=== PATIENT | male | born 1990 | race Caucasian/White ===

== ENCOUNTER 2022-01-23 12:21 | Emergency (ER) | payer MEDICAID, SELFPAY ==
--- NOTE | ~2022-01-23 | CT_ITS ---
EXAMINATION: CT cervical spine wo con DATE: 01/23/2022 13:25 INDICATION: Neck pain TECHNIQUE: Computed tomography (CT) of the cervical spine was performed without intravenous contrast. The dose-length product (DLP) was 228.66 mGy-cm. Automated exposure control and iterative reconstruc tion technique were employed. COMPARISON: None FINDINGS: There is no fracture, dislocation, or subluxation. The vertebral body heights, alignment, a nd intervertebral disc spaces are normal. The paravertebral soft tissues are unremarkable. The odonto id is intact. There is mild mucosal thickening of the paranasal sinuses. Multiple tonsilloliths are n oted. IMPRESSION: 1. No acute osseous abnormality. Reviewed, dictated and finalized at location B.
--- NOTE | ~2022-01-23 | XR_ITS ---
EXAMINATION: XR shoulder LT min 2V INDICATION: Left shoulder pain TECHNIQUE: Four views of the left shoulder are submitted. COMPARISON: 03/01/2014 FINDINGS: Normal alignment. No fracture. There is a calcified loose body in the joint space. There is advanced osteoarthritis in the inferior aspect of the glenohumeral joint. The acromioclavicular join t is unremarkable. Soft tissues are unremarkable. IMPRESSION: 1. Osteoarthritis without acute osseous abnormality. Reviewed, dictated and finalized at location B.
[2022-01-23 12:38] VITALS: BP 171/108; PULSE 113; RESP 16; TEMP 36.8; O2SAT 98
--- NOTE | 2022-01-23 12:40 | PC.NURSE ---
erp denies need for c-collar at this time.
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
[2022-01-23 14:04] VITALS: BP 149/105; PULSE 95; RESP 16; TEMP 36.9; O2SAT 98
== END 2022-01-23 14:06 | disposition home or self-care (01) ==
PROVIDERS: Emergency Provider Emergency Medicine
DX: S16.1XXA Strain of muscle, fascia and tendon at neck level, initial encounter (principal); F17.200 Nicotine dependence, unspecified, uncomplicated
CPT/HCPCS: 72125; 73030; 99284

== ENCOUNTER 2022-04-15 15:31 | Emergency (ER) | payer MEDICAID, SELFPAY ==
--- NOTE | ~2022-04-15 | XR_ITS ---
XR ankle RT min 3V DATE: 04/15/2022 16:12 INDICATION: Medial right ankle pain after stepping in a hole today TECHNIQUE: 4 views COMPARISON: None FINDINGS: No fracture or dislocation, periosteal reaction or bone destruction. No significant soft ti ssue swelling is evident radiographically. IMPRESSION: Negative Reviewed, dictated and finalized at location A. IMPRESSION: Negative
[2022-04-15 15:40] VITALS: BP 170/100; PULSE 96; RESP 18; TEMP 36.8; O2SAT 96
[2022-04-15] MEDS: ACETAMINOPHEN 325 MG TABLET 650 MG PO (16:05)
--- NOTE | 2022-04-15 16:25 | ED.LOWEXIN ---
HPI - Extremity Injury (Lower) General Chief Complaint: Extremity Injury, Lower Stated Complaint: right ankle injury Time Seen by Provider: 04/15/22 15:35 Source: patient and RN notes reviewed Mode of arrival: ambulatory Limitations: no limitations History of Present Illness complaint: ankle injury Onset (ago): hour(s) (4) Type of Injury: inversion Place: street/outdoors Severity: mild Severity scale (1-10): 4 Relieving factors: immobilization and rest Exacerbating factors: weight bearing and movement Context: fall and running Associated symptoms: snap/pop sensation Other symptoms: none Related Data Allergies Allergy/AdvReac Type Severity Reaction Status Date / Time aspirin Allergy Unknown Other Verified 04/15/22 15:54 celecoxib Allergy Unknown Other Verified 04/15/22 15:54 citalopram Allergy Unknown Other Verified 04/15/22 15:54 codeine Allergy Unknown Unknown Verified 04/15/22 15:54 NSAIDS (Non-Steroidal Allergy Unknown Other Verified 04/15/22 15:54 Anti-Inflamma tramadol Allergy Unknown Other Verified 04/15/22 15:54 Review of Systems Review of Systems: All systems reviewed & are unremarkable except as noted in HPI and below Constitutional: Constitutional: Reports no additional constitutional complaints Eyes: Eyes: Reports no additional eye complaints ENT: Reports system reviewed and no additional complaints, except as documented Cardiovascular: Cardiovascular: Reports no additional cardiovascular complaints Respiratory: Respiratory: Reports no additional respiratory complaints Gastrointestinal: Gastrointestinal: Reports no additional gastrointestinal complaints Genitourinary: Genitourinary: Reports no additional male genitourinary complaints Musculoskeletal: Musculoskeletal: Reports arthralgias Integumentary/Breasts: Skin/Breast: Reports system reviewed and no additional complaints, except as docu Neurologic: Reports system reviewed and no additional complaints, except as documented Psychiatric: Psychiatric: Reports no additional psychiatric complaints Endocrine: Endocrine: Reports no additional endocrine complaints Hematologic/Lymphatic: Hematologic/Lymphatic: Reports no additional hematologic/lymphatic complaints Allergic/Immunologic: Allergic/Immunologic: Reports no additional allergic/immunologic complaints [facility] Past Medical History Medical History Ankle injury No active medical problems Surgical History Surgical History History of ankle surgery Social History Social History Smoking packs per day: 0.5 Smoking cigarettes per day: 10.0 Smoking status: Current every day smoker Tobacco type: cigarettes Additional smoking assessment comments: down from 2 and half packs per day Alcohol intake: never Alcohol use details: rare Substance use: current Substance use type: marijuana Exam Const: General: no acute distress Nutritional Appearance: well nourished Orientation/consciousness: patient oriented x3 Limitations: no limitations HENMT: Head: normal to inspection Ears: external ears normal, TM's normal bilaterally and EAC's normal General nose exam: Normal external nose present and Normal nares present Face and sinus: normal facial exam and sinuses nontender Mouth: Yes Normal oral and palatal mucosa present and Yes moist mucous membranes Teeth and gingiva: dentition normal Throat: posterior oropharynx normal Eyes: Conjunctivae: conjunctivae normal Pupils: Equal, round and reactive pupils present EOM: EOMs intact bilaterally Neck: Neck: normal visual inspection, no lymphadenopathy and no meningeal signs Chest: Chest palpation & inspection: normal inspection of the chest Resp: Effort & Inspection: normal respiratory effort Auscultation: clear to auscultation bilaterally Cardio: Rate: regular
[2022-04-15 16:48] VITALS: BP 157/90; PULSE 80; RESP 18; TEMP 36.5; O2SAT 98
== END 2022-04-15 16:51 | disposition home or self-care (01) ==
PROVIDERS: Emergency Provider Emergency Medicine
DX: S93.401A Sprain of unspecified ligament of right ankle, initial encounter (principal)
CPT/HCPCS: 29515; 73610; 99283; A9270

== ENCOUNTER 2022-06-23 13:00 | Observation (INO) | payer BC, SELFPAY ==
[2022-06-23] VITALS (19 sets, daily range): BP systolic 140–167; BP diastolic 72–105; PULSE 44–91; RESP 12–22; TEMP 36.4–36.8; O2SAT 98–100; BMI 25.2
--- NOTE | ~2022-06-23 | CT_ITS ---
EXAMINATION: CT abdomen pelvis w con DATE: 06/23/2022 14:31 INDICATION: Left lower quadrant TECHNIQUE: Computed tomography (CT) of the abdomen and pelvis was performed with 100 mL Omnipaque-350 intravenous contrast. Automated exposure control and iterative reconstruction technique were employe d. The dose-length product was 271.27 mGy-cm. COMPARISON: 01/31/2017. FINDINGS: Lower thorax: Dependent atelectasis. Liver: Normal. Biliary/Gallbladder: Gallbladder is normal. No bile duct dilation. Pancreas: No mass or duct dilation. Spleen: Normal. Adrenals:No mass. Kidneys: Moderate left perinephric stranding and hydronephrosis. Delayed left nephrogram. Left midpol e simple cyst. 3 mm right lower pole nonobstructing calcification. GI tract: Mild distal esophageal and gastric wall edema as can be seen with mild esophagitis/gastriti s. No small or large bowel dilation. Normal appendix. Mesentery/Peritoneum: No ascites, mass, or free air. Retroperitoneum: No mass. Minimal atherosclerotic calcification at the right iliac bifurcation. Pelvis: 4 x 6 mm distal left ureteral calcification just proximal to the left UVJ. Mild bladder wall inflammatory change at the left UVJ. Soft Tissues: Soft tissues and body wall unremarkable. Bones: No acute osseous finding. IMPRESSION: 4 x 6 mm distal left ureteral stone causing moderate left obstructive uropathy. Reviewed, dictated and finalized at location K. 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
--- NOTE | ~2022-06-23 | XR_ITS ---
EXAMINATION: XR retrograde pyelo w/stent LT DATE: 06/24/2022 08:20 INDICATION: Left flank pain. TECHNIQUE: Fluoroscopic images from a left internal ureteral stent placement are submitted for review . 22 seconds of fluoroscopy time. FINDINGS: There is a left double-J internal ureteral stent projecting in expected position, with proximal [place] loop at the level of the renal pelvis and distal loop in the pelvis within the bladder lumen. IMPRESSION: 1. Left internal ureteral stent placement. Please refer to real-time procedural findings for detail s. Reviewed, dictated and finalized at location A. TRAINING IMPRESSION: 1. Left internal ureteral stent placement. Please refer to real-time procedur al findings for details.
--- NOTE | 2022-06-23 13:09 | ED.ABDPAIN ---
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 Associated with nausea and frequent vomiting. Radiating to left flank area. Patient denies having similar symptoms in the past or history of abdominal surgery. Patient does not take medicine at home, Related Data Allergies Allergy/AdvReac Type Severity Reaction Status Date / Time aspirin Allergy Unknown Other Verified 06/23/22 13:08 celecoxib Allergy Unknown Other Verified 06/23/22 13:08 citalopram Allergy Unknown Other Verified 06/23/22 13:08 codeine Allergy Unknown Unknown Verified 06/23/22 13:08 NSAIDS (Non-Steroidal Allergy Unknown Other Verified 06/23/22 13:08 Anti-Inflamma tramadol Allergy Unknown Other Verified 06/23/22 13:08 Review of Systems Review of Systems: All systems reviewed & are unremarkable except as noted in HPI and below PMFSH Past Medical History Medical History Ankle injury No active medical problems Surgical History Surgical History History of ankle surgery Family History Family History Father Accident Social History Social History Social History: 3 2 step Smoking packs per day: 0.5 Smoking cigarettes per day: 10.0 Smoking status: Current every day smoker Tobacco type: cigarettes Additional smoking assessment comments: down from 2 and half packs per day Alcohol intake: never Alcohol use details: rare Substance use: current Substance use type: marijuana Exam Narrative: General appearance: Well-developed, well-nourished, restless, in pain Skin: Normal color Head: Normocephalic, nontraumatic Eyes: Clear conjunctiva ENT: Oropharynx normal, ears normal, nose normal Neck: Supple, nontender Chest and respiratory: Airway patent, no respiratory distress, no accessory muscle use Heart: Regular rate/rhythm Abdomen: Soft, mild tenderness left lower quadrant, severe tenderness left flank,, no organomegaly, quiet bowel sounds Vascular: Normal peripheral pulses, normal capillary refill. Musculoskeletal: Normal range of motion, nontender back Neurologic: Alert and oriented ?3, MEDICAL DOCTOR is normal as tested, no gross motor deficit Course Consultations Consultation #1: DR FUNG Date: 06/23/22 Time: 16:27 Vital Signs Vital signs: Vital Signs Temperature 36.4 C L 06/23/22 13:01 Pulse Rate 45 L 06/23/22 13:01 Respiratory Rate 14 06/23/22 13:01 Pulse Oximetry 100 06/23/22 13:01 Oxygen Delivery Room Air 06/23/22 13:01 Temperature 36.4 C L 06/23/22 13:01 Pulse Rate 68 06/23/22 16:00 Respiratory Rate 18 06/23/22 16:00 Blood Pressure 157/105 H 06/23/22 14:46 Pulse Oximetry 98 06/23/22 16:00 Oxygen Delivery Room Air 06/23/22 13:01 MDM - Abdominal Pain Differential Diagnosis Differential diagnosis: Likely abdominal pain, calculus of kidney, constipation and diverticulitis Lab Data 06/23/22 13:40 06/23/22 13:40 Labs: Lab Results 06/23/22 06/23/22 06/23/22 Range/Units 13:40 13:40 15:07 WBC 13.0 H (4.5-10.0) K/mm3 RBC 4.49 L (4.6-6.20) M/mm3 Hgb 14.6 (14.0-18.0) g/dL Hct 41.5 L (42.0-52.0) % MCV 92.4 (80-100) fl MCH 32.5 (26-34) pg MCH
[2022-06-23] MEDS: SODIUM CHLORIDE 0.9% IV 1,000 ML 999 ML IV CONT (13:16)
[2022-06-23] MEDS: ONDANSETRON INJ 4 MG/2 ML VIAL IV PUSH ×2 (13:16→19:55)
[2022-06-23] MEDS: HYDROmorphone HCL INJ (*CRX) 1 MG/ML SYR 0.5 MG IV PUSH ×4 (13:16→19:55)
[2022-06-23 13:45] LABS: Basophils Percent Auto 0.2 % (0.2-1.2); Eosinophils Percent Auto 0.2 % (0-4.4); Hematocrit 41.5 % (42.0-52.0); Hemoglobin 14.6 g/dL (14.0-18.0); Immature Granulocyte Absolute 0.04 K/mm3 (0.00-0.031); Immature Granulocyte Percent A 0.3 % (0-0.5); Lymphocytes Absolute Auto 0.73 K/mm3 (0.9-3.2); Lymphocytes Percent Auto 5.6 % (18.3-44.2); Mean Corpuscular HGB Conc 35.2 g/dl (32-36); Mean Corpuscular Hemoglobin 32.5 pg (26-34); Mean Corpuscular Volume 92.4 fl (80-100); Mean Platelet Volume 10.1 fl (7.4-10.4); Monocytes Absolute Auto 0.7 K/mm3 (0.1-0.6); Monocytes Percent Auto 5.2 % (2.6-8.5); Neutrophils Absolute Auto 11.5 K/mm3 (1.3-6.7); Neutrophils Percent Auto 88.5 % (45.5-73.1); Platelet Count Result 187 k/mm3 (150-375); Red Blood Count 4.49 M/mm3 (4.6-6.20); Red Cell Distribution Width 12.2 % (11.5-14.5)
[2022-06-23 13:57] LABS: Alanine Aminotransferase 29 U/L (6-50); Albumin Level 4.3 g/dL (3.5-5.1); Alkaline Phosphatase 74 U/L (38-126); Anion Gap 8 mmol/L (8-16); Aspartate Amino Transferase 27 U/L (17-59); Bilirubin,Total 0.4 mg/dL (0.2-1.3); Blood Urea Nitrogen 12 mg/dL (9-20); Calcium 8.6 mg/dL (8.4-10.2); Carbon Dioxide 24 mmol/L (22-30); Chloride 108 mmol/L (98-107); Estimated CRCL calculation 98 ml/min; Estimated Glomerular Filt Rate > 60; Glucose 113 mg/dL (65-110); Lipase 41 U/L (23-300); Potassium 4.1 mmol/L (3.4-5.0); Sodium 140 mmol/L (137-145)
[2022-06-23] MEDS: TAMSULOSIN HCL 0.4 MG CAPSULE PO (14:58)
[2022-06-23 15:32] LABS: Appearance Urine Clear (Clear); Bilirubin Urine Negative (Negative); Blood Urine 2+ (Negative); Color Urine Light Yellow (Yellow); Glucose Urine UA Negative (Negative); Ketones Urine 1+ mg/dL (Negative); Leukocyte Esterase Ur Negative LEU/UL (Negative); Nitrate Urine Negative (Negative); Protein Urine Negative (Negative); pH Urine 7.5 (5.0-9.0)
[2022-06-23 15:38] LABS: Bacteria Urine Trace /hpf; Mucus Urine Rare /lpf; RBC Urine 51-75 /hpf (0-2); WBC Urine 0-3 /hpf
[2022-06-23 15:40] LABS: Add Urine Microscopic? YES
[2022-06-23 15:52] LABS: SARS-CoV-2 RNA PCR Negative
--- NOTE | 2022-06-23 16:00 | PM.IMHP ---
H&P: HPI History of Present Illness Date/Time: 06/23/22 16:00 Chief Complaint: Left flank pain Narrative: This is a 32-year-old male patient with a history of kidney stone. The patient sees a urologist at [place]. The patient stated that he started suddenly having left flank pain early this morning. It was associated with nausea and vomiting. The patient stated he feels better curled up in a position if he moves the pain gets worse. The patient did not take any medication at home. The patient has no other medical problems. His white count 13.0. The patient has blood in his urine on his urinalysis. Abdominal pelvis CT was read as a 4 x 6 mm distal left ureteral stone causing moderate left obstructive uropathy. Urology has been consulted. Urology is planning to take the patient to OR at 7:30 a.m. for cystoscopy left retrograde pyelogram and ureteroscopy, laser lithotripsy, stent placement and then the patient could possibly be cleared to go home from their point of view. Urinalysis does not appear to be infected. The patient is being admitted to observation status on the date of service of 06/23/2022. Review of Systems Review of Systems: See HPI All systems reviewed & are unremarkable except as noted in HPI and below Constitutional: Constitutional: Reports as per HPI and Reports no additional constitutional complaints Eyes: Eyes: Reports as per HPI and Reports no additional eye complaints ENT: Reports system reviewed and no additional complaints, except as documented and Reports Normal hearing present Cardiovascular: Cardiovascular: Reports no additional cardiovascular complaints Respiratory: Respiratory: Reports no additional respiratory complaints and Reports no additional respiratory complaints Gastrointestinal: Gastrointestinal: Reports as per HPI and Reports no additional gastrointestinal complaints Musculoskeletal: Musculoskeletal: Reports no additional musculoskeletal complaints Integumentary/Breasts: Skin/Breast: Reports system reviewed and no additional complaints, except as docu and Reports as per HPI Neurologic: Reports system reviewed and no additional complaints, except as documented, Reports as per HPI and Reports Normal hearing present Psychiatric: Psychiatric: Reports no additional psychiatric complaints and Reports as per HPI Endocrine: Endocrine: Reports no additional endocrine complaints Hematologic/Lymphatic: Hematologic/Lymphatic: Reports no additional hematologic/lymphatic complaints Allergic/Immunologic: Allergic/Immunologic: Reports no additional allergic/immunologic complaints [facility] Past Medical History Medical History (Updated 06/23/22 @ 18:47 by Clare Uriarte NP) Ankle injury History of kidney stones No active medical problems Tobacco abuse Surgical History Surgical History History of ankle surgery Family History Family History Father Accident Social History Social History (Updated 06/23/22 @ 18:29 by Clare Uriarte NP) Social History: The patient lives with his and 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 He has 3 biological children and 2 step children. The patient continues to smoke at least 10 cigarettes a day. He denies any alcohol marijuana or illicit drugs. Smoking packs per day: 0.5 Smoking cigarettes per day: 10.0 Years smoked: 20 Smoking pack-years: 10.00 Smoking status: Current every day smoker Tobacco type: cigarettes Additional smoking assessment comments: down from 2 and half packs per day Alcohol intake: current Drinks per week: 0 Alcohol use details: rare Substance use: current Substance use type: marijuana Other substance usage details: not much Last use: 06/22/2022 Lack of Transportation: No Lack of Food: Never True Current Housing: I Have Housing Concerned About Future Housing:
[2022-06-23] MEDS: SODIUM CHLORIDE 0.9% IV 1,000 ML 125 ML IV CONT (17:44)
--- NOTE | 2022-06-23 17:59 | ADMGEN ---
This patient, Gilson Austin, was admitted to [facility] Surg Room 330-01. Patient/family oriented to hospital policies and general routines including ID bracelet, bed and alarms, visiting hours, pain management, procedures, bathroom and other care routines, personal items, smoking policy, room service/diet, and visiting hours. Information on how to activate the Rapid Response Team has been discussed. Patient/Family are encouraged to report perceived risks to care and to ask questions if they do not understand what they are told or what they should do.
[2022-06-24] VITALS (7 sets, daily range): BP systolic 82–131; BP diastolic 44–92; PULSE 75–92; RESP 12–20; TEMP 36.4–37; O2SAT 96–100
[2022-06-24] MEDS: HYDROmorphone HCL INJ (*CRX) 1 MG/ML SYR 0.5 MG IV PUSH (00:44)
[2022-06-24] MEDS: SODIUM CHLORIDE 0.9% IV 1,000 ML 125 ML IV CONT (00:46)
--- NOTE | 2022-06-24 07:27 | WPDANESEPPF ---
Anes - Initial Pre Proc Eval Procedure: Operation Date: 06/24/22 07:30 Proposed Procedures p Cysto, RPG, Stone Ext, Stent Placement - Jose Brown MD Date/Time: 06/24/22 07:27 Surgeon: Robby Goldstein MD Pre Op Diagnosis: Left Ureterolithiasis Patient Data Age: 32 Gender: M Height: 1.8 m Weight: 82 kg Last Vital Signs Temp 36.5 C 06/24/22 05:40 Pulse 80 06/24/22 05:40 Resp 20 06/24/22 05:40 BP 118/80 06/24/22 05:40 Pulse Ox 98 06/24/22 05:40 O2 Del Method Room Air 06/23/22 20:30 Allergies Allergy/AdvReac Type Severity Reaction Status Date / Time aspirin Allergy Unknown Other Verified 06/23/22 13:08 celecoxib Allergy Unknown Other Verified 06/23/22 13:08 citalopram Allergy Unknown Other Verified 06/23/22 13:08 codeine Allergy Unknown Unknown Verified 06/23/22 13:08 NSAIDS (Non-Steroidal Allergy Unknown Other Verified 06/23/22 13:08 Anti-Inflamma tramadol Allergy Unknown Other Verified 06/23/22 13:08 Home Medications Medication Instructions Recorded Confirmed Type acetaminophen 325 mg capsule 650 mg PO Q8H PRN pain #20 caps 04/15/22 Rx (Tylenol) hydrocodone 5 mg-acetaminophen 325 1 tablet PO BID PRN pain #4 tabs 04/15/22 Rx mg tablet Laboratory Tests 06/23/22 06/23/22 06/23/22 13:40 13:40 15:07 WBC 13.0 K/mm3 H K/mm3 (4.5-10.0) RBC 4.49 M/mm3 L M/mm3 (4.6-6.20) Hgb 14.6 g/dL g/dL (14.0-18.0) Hct 41.5 % L % (42.0-52.0) MCV 92.4 fl fl (80-100) MCH 32.5 pg pg (26-34) MCHC 35.2 g/dl g/dl (32-36) RDW 12.2 % % (11.5-14.5) Plt Count 187 k/mm3 k/mm3 (150-375) MPV 10.1 fl fl (7.4-10.4) Immature Gran % (Auto) 0.3 % % (0-0.5) Neut % (Auto) 88.5 % H % (45.5-73.1) Lymph % (Auto) 5.6 % L % (18.3-44.2) Thayer % (Auto) 5.2 % % (2.6-8.5) Eos % (Auto) 0.2 % % (0-4.4) Baso % (Auto) 0.2 % % (0.2-1.2) Lymph # (Auto) 0.73 K/mm3 L K/mm3 (0.9-3.2) Thayer # (Auto) 0.7 K/mm3 H K/mm3 (0.1-0.6) Eos # (Auto) 0.0 K/mm3 K/mm3 (0-0.3) Baso # (Auto) 0.0 K/mm3 K/mm3 (0.0-0.1) Abs Immat Gran (auto) 0.04 K/mm3 H K/mm3 (0.00-0.031) Absolute Neuts (auto) 11.5 K/mm3 H K/mm3 (1.3-6.7) Absolute Nucleated RBC 0.0 K/mm3 K/mm3 (0.0-0.012) Nucleated RBC % 0.0 % % (0.0-0.2) Sodium 140 mmol/L mmol/L (137-145) Potassium 4.1 mmol/L mmol/L (3.4-5.0) Chloride 108 mmol/L H mmol/L (98-107) Carbon Dioxide 24 mmol/L mmol/L (22-30) Anion Gap 8 mmol/L mmol/L (8-16) BUN 12 mg/dL mg/dL (9-20) Creatinine 1.00 mg/dL mg/dL (0.7-1.3) Estim Creat Clear Calc 98 ml/min ml/min Estimated GFR > 60 (59 - ) Glucose 113 mg/dL H mg/dL (65-110) Calcium 8.6 mg/dL mg/dL (8.4-10.2) Total Bilirubin 0.4 mg/dL mg/dL (0.2-1.3) AST 27 U/L U/L (17-59) ALT 29 U/L U/L (6-50) Alkaline Phosphatase 74 U/L U/L (38-126) Total Protein 7.0 g/dL g/dL (6.3-8.2) Albumin 4.3 g/dL g/dL (3.5-5.1) Lipase 41 U/L U/L (23-300) Urine Color Urine Appearance Urine pH Ur Specific [place] Urine Protein Urine Glucose (UA) Urine Ketones Ur Blood (Man) Urine Nitrate Urine Bilirubin Urine Urobilinogen Leukocyte Esterase Rfl Urine RBC Urine WBC Urine Bacteria Urine Mucus SARS-CoV-2 RNA (RT-PCR) Negative 06/23/22 15:20 WBC RBC Hgb Hct MCV MCH MCHC RDW Plt Count MPV Immature Gran % (Auto)
[2022-06-24] MEDS: LACTATED RINGERS 1,000 ML 30 ML IV CONT (07:30)
--- NOTE | 2022-06-24 07:44 | WPDURCON ---
Assessment and Plan Assessment and plan (1) Calculus of ureter: Code(s): N20.1 - Calculus of ureter Status: Acute Plan Plan for OR 06/24/2022 at 07:30AM for cystoscopy, left retrograde pyelogram, ureteroscopy, laser lithotripsy, stent placement Will be cleared for d/c home from urologic perspective post-op Urology Consult Note HPI Date Seen: 06/24/22 Primary Care Provider: UNKNOWN,DOCTOR Consult Narrative Narrative: Gilson Austin is a 32 year old male who presented to [place] ER with left-sided abdominal pain. CT AP shows a 6mm distal left ureteral stone -- no other stones. Has hydroureter. Urinalysis appears uninfected. Poor pain control, so is being admitted to hospitalist service with request for urologic intervention. Cr 1.0, WBC 13 -- this is his first ever stone event. Review of Systems Review of Systems: All systems reviewed & are unremarkable except as noted in HPI and below PMFSH Past Medical History Medical History Ankle injury History of kidney stones No active medical problems Tobacco abuse Surgical History Surgical History History of ankle surgery Family History Family History Father Accident Social History Social History Social History: The patient lives with his and she is the durable power state attorney for healthcare. He has 3 biological children and 2 step children. The patient continues to smoke at least 10 cigarettes a day. He denies any alcohol marijuana or illicit drugs. Smoking packs per day: 0.5 Smoking cigarettes per day: 10.0 Years smoked: 20 Smoking pack-years: 10.00 Smoking status: Current every day smoker Tobacco type: cigarettes Additional smoking assessment comments: down from 2 and half packs per day Alcohol intake: current Drinks per week: 0 Alcohol use details: rare Substance use: current Substance use type: marijuana Other substance usage details: not much Last use: 06/22/2022 Lack of Transportation: No Lack of Food: Never True Current Housing: I Have Housing Concerned About Future Housing: No Difficulty Paying Gas/Electric Bills: No Difficulty Paying for Meds: No Currently Unemployed: No Education: Decline to Answer Difficulty w/ Childcare or Family Care: No Spiritual care concerns: No Meds Home Medications and Allergies Home Medications Medication Instructions Recorded Confirmed Type acetaminophen 325 mg capsule 650 mg PO Q8H PRN pain #20 caps 04/15/22 Rx (Tylenol) hydrocodone 5 mg-acetaminophen 325 1 tablet PO BID PRN pain #4 tabs 04/15/22 Rx mg tablet Allergies Allergy/AdvReac Type Severity Reaction Status Date / Time aspirin Allergy Unknown Other Verified 06/23/22 13:08 celecoxib Allergy Unknown Other Verified 06/23/22 13:08 citalopram Allergy Unknown Other Verified 06/23/22 13:08 codeine Allergy Unknown Unknown Verified 06/23/22 13:08 NSAIDS (Non-Steroidal Allergy Unknown Other Verified 06/23/22 13:08 Anti-Inflamma tramadol Allergy Unknown Other Verified 06/23/22 13:08 Vital Signs Vital Signs - 24 hr 06/23/22 13:01 06/23/22 13:30 06/23/22 13:31 Temperature 36.4 C L Pulse Rate 45 L 52 L 54 L Respiratory Rate 14 15 19 Blood Pressure 151/83 H Pulse Oximetry 100 99 99 Oxygen Delivery Room Air 06/23/22 13:45 06/23/22 13:46 06/23/22 14:00 Temperature Pulse Rate 48 L 48 L 47 L Respiratory Rate 16 15 15 Blood Pressure 155/81 H Pulse Oximetry 99 99 99 Oxygen Delivery 06/23/22 14:01 06/23/22 14:15 06/23/22 14:32 Temperature Pulse Rate 47 L 46 L Respiratory Rate 16 18 Blood Pressure 144/89 H 150/88 H Pulse Oximetry 99 100 100 Oxygen Delivery 06/23/22 14:34 06/23/22 14:46 06/23/22 15:15 Temperature Pu
--- NOTE | 2022-06-24 07:44 | WPDHPUPDATE1 ---
History and Physical Update Update Date/Time: 06/24/22 07:44 History and Physical has been reviewed, including an updated exam of the patient. There are NO changes in the patient's condition. Risks, benefits, and alternatives have been discussed and questions answered. Patient agrees to proceed with procedure.
[2022-06-24] MEDS: LIDOCAINE HCL 2% GEL UROJET 10 ML PKG MUCOUS MEM (08:01)
--- NOTE | 2022-06-24 08:20 | P.OPB_ITS ---
Procedure Note - Brief Procedure Note - Brief Date of procedure: 06/24/22 Pre-op diagnosis: Left Ureterolithiasis Post-op diagnosis: Same Procedure performed: Cystoscopy, Left Retrograde Pyelogram, Ureteroscopy, Basket extraction of stone, Ureteral Stent placement Description of procedure: Prior to the operation an informed consent was obtained.? The patient was brought back to the operative suite and a detail timeout was performed.? General anesthesia was induced without complication.? The patient was administered IV antibiotics in the prophylactic form.? The patient was positioned in the dorsal lithotomy position with close attention to all pressure points and was prepped and draped in sterile fashion. We began the case using a rigid cystoscope to gain access into the bladder under direct visualization per urethra -- he is uncircumcised and has some meatal narrowing that would not allow for the 22Fr scope to pass. Using urethral male sounds, I dilated his meatus from 16Fr to 24Fr in 2Fr increments. This allowed the 22Fr rigid scope to pass without issue. Cystoscopy was otherwise unremarkable. We turned our attention to the left ureteral orifice and cannulated it using an 8/10 ureteral dilator and sensor wire.? We radiologically confirmed the wire to pass up into the renal pelvis before advancing the ureteral dilator into the distal ureter. Using a 7 [place] semirigid ureteroscope I was able to traverse into the left ureter, next to the wire, and identified the stone.?? It was 6mm and distally located. It was oblong shaped, so I felt it was worth an attempt at basket extraction with optimal orientation -- using a 0-tipped nitinol basket, I was able to grasp the stone in optimal orientation, and it removed easily in its entirety. It was sent for chemical analysis. We performed a retrograde pyelogram through the scope to keep our wire in place. With our wire in place, we placed a 4.8Fr variable length double-J ureteral stent.? We left a string attached. We confirmed excellent position fluoroscopically.? The patient's bladder was emptied at the conclusion of the case and they tolerated the procedure well. PLAN: -Patient has stent on a string with string emanating from meatus -PACU, floor -- may be discharged to home today if pain controlled -Patient to remove his stent on a string on AM, though it may be removed sooner if patient having severe stent discomfort -Patient will need outpatient follow up with Urology in about 6 weeks with LAURIE prior This note was created with the assistance of voice-recognition software and may contain phonetic errors. Implants: 4.8Fr left ureteral stent on a string (variable length stent) Surgeon: Jose Brown MD Findings: See 'Description of Procedure' above
[2022-06-24] MEDS: fentaNYL CITRATE INJ (*CRX) 100 MCG/2 ML VIAL 25 MCG IV PUSH ×8 (08:40→09:25)
[2022-06-24 10:01] LABS: Basophils Percent Auto 0.2 % (0.2-1.2); Eosinophils Percent Auto 0.4 % (0-4.4); Hematocrit 38.4 % (42.0-52.0); Hemoglobin 13.5 g/dL (14.0-18.0); Immature Granulocyte Absolute 0.04 K/mm3 (0.00-0.031); Immature Granulocyte Percent A 0.4 % (0-0.5); Lymphocytes Absolute Auto 0.81 K/mm3 (0.9-3.2); Lymphocytes Percent Auto 7.8 % (18.3-44.2); Mean Corpuscular HGB Conc 35.2 g/dl (32-36); Mean Corpuscular Hemoglobin 31.8 pg (26-34); Mean Corpuscular Volume 90.4 fl (80-100); Mean Platelet Volume 9.9 fl (7.4-10.4); Monocytes Absolute Auto 0.3 K/mm3 (0.1-0.6); Monocytes Percent Auto 3.1 % (2.6-8.5); Neutrophils Absolute Auto 9.1 K/mm3 (1.3-6.7); Neutrophils Percent Auto 88.1 % (45.5-73.1); Platelet Count Result 193 k/mm3 (150-375); Red Blood Count 4.25 M/mm3 (4.6-6.20); Red Cell Distribution Width 12.2 % (11.5-14.5); White Blood Count 10.4 K/mm3 (4.5-10.0)
[2022-06-24 10:26] LABS: Alanine Aminotransferase 26 U/L (6-50); Alkaline Phosphatase 66 U/L (38-126); Anion Gap 7 mmol/L (8-16); Aspartate Amino Transferase 27 U/L (17-59); Bilirubin,Total 0.4 mg/dL (0.2-1.3); Blood Urea Nitrogen 14 mg/dL (9-20); Calcium 8.2 mg/dL (8.4-10.2); Carbon Dioxide 26 mmol/L (22-30); Chloride 107 mmol/L (98-107); Estimated CRCL calculation 108 ml/min; Estimated Glomerular Filt Rate > 60; Glucose 100 mg/dL (65-110); Lactate Dehydrogenase 130 U/L (120-246); Potassium 3.9 mmol/L (3.4-5.0); Sodium 140 mmol/L (137-145)
[2022-06-24] MEDS: KETOROLAC 30 MG/ML VIAL (*BKC) IV PUSH (10:50)
--- NOTE | 2022-06-24 11:00 | PM.DS ---
DS: Admitting Diagnosis Discharge Date 06/24/22 1100 Admitting Diagnosis Renal stones DS: Discharge Diagnosis Discharge Diagnosis (1) Kidney stone on left side: Code(s): N20.0 - Calculus of kidney Status: Acute Assessment and Plan: -continue with IV fluids -urology has been consulted and the plan is for the patient to go to stay surgery tomorrow at 7:30 a.m. As per urology note Plan for OR 06/24/2022 at 07:30AM for cystoscopy, left retrograde pyelogram, ureteroscopy, laser lithotripsy, stent placement Will be cleared for d/c home from urologic perspective post-op -continue with analgesics -continue with Flomax -continue with antibiotics -strain all urine -urinalysis does not appear to be infectious (2) Tobacco abuse: Code(s): Z72.0 - Tobacco use Status: Acute Assessment and Plan: -I spoke to the patient less than 5 minutes about smoking cessation. The patient is not requiring a patch at this time. DS: Summary Hospital Course Hospital Course: Patient is a 32-year-old male with a past medical history of anxiety, hypertension presented to the ED with complaints left flank pain. Her Trelegy was consulted the patient was taken to OR for cystoscopy and temporary stent was placed along with renal stone extracted med. Abdominal is pelvis CT found a 4 x 6 distal left ureteral stone. WBCs were slightly elevated at 13. UA was performed however did not show any indication for UTI or infection at this time. He denies any chest pain, shortness a breath, nausea, vomiting, diarrhea, constipation, weakness or fatigue. Patient did state that he was having some pain with urination however the flank pain has dissipated has got this time. Patient is pursuing discharge at this time and feels stable at discharge. Labs and vital signs remained stable. Patient will need to follow up with Urology in 6 weeks and remove the renal stone on in the a.m.. Patient was given instructions and verbalized understanding at this time. Currently patient stated he is not having any pain still urinates. Status at Discharge Functional status at discharge: independent ambulation Overall status at discharge: patient is progressing back to baseline Time Spent with Patient Time attestation: Total time spent providing and/or coordinating discharge services: 38 minutes Time spent: Greater than 30 minutes Specific discharge activities: Diagnostic testing, chart review, developing a treatment plan, education, care coordination documentation, physical exam, result review Exam Const: General: cooperative, healthy appearing, comfortable, no acute distress, well developed, alert, awake, Physically active, average body habitus, well nourished and overweight Nutritional Appearance: average body habitus, well nourished and overweight Orientation/consciousness: oriented to person, oriented to place, oriented to time and patient oriented x3 Limitations: no limitations HENMT: Head: normal to inspection, No palpable skull fracture present, normocephalic, atraumatic and abrasion Ears: hearing grossly normal bilaterally, external ears normal and TM's normal bilaterally Face/Nose/Sinus: Normal external nose present, Normal nares present and No nasal polyps present Mouth: Yes Normal oral and palatal mucosa present Throat: posterior oropharynx normal Eyes: General: appearance normal, both eyes and all related structures Alignment and Position: alignment normal Periorbital: periorbital findings normal Eyelids: eyelids normal Conjunctivae: conjunctivae normal Sclera: sclerae normal Cornea: corneas normal Pupils: Equal, round and reactive pupils present and Pupil accommodation reflex normal EOM: EOMs intact bilaterally Neck: Neck: normal visual inspection, full ROM, no lymphadenopathy, trachea midline and supple Thyroid: thyroid normal Carotids: normal carotid upstroke Lymphatic: no lymphadenopathy noted Chest: Chest palpation & inspecti
[2022-06-24] MEDS: LORazepam (*CRX) 1 MG TABLET PO (11:24)
== END 2022-06-24 11:30 | disposition home or self-care (01) ==
LOC: ANHED 13:25 → ANH3MEDSUR 17:03
PROVIDERS: Nurse Practitioner; Urology; Admitting Provider Internal Medicine; Emergency Provider Emergency Medicine; Visit Provider Internal Medicine
PROC: (CPT 52352; principal; 2022-06-24 07:30)
DX: N13.2 Hydronephrosis with renal and ureteral calculous obstruction (principal); J98.11 Atelectasis; Z87.442 Personal history of urinary calculi; F10.90 Alcohol use, unspecified, uncomplicated; F12.90 Cannabis use, unspecified, uncomplicated; Z20.822 Contact with and (suspected) exposure to COVID-19; F17.210 Nicotine dependence, cigarettes, uncomplicated; Z79.1 Long term (current) use of non-steroidal anti-inflammatories (NSAID); Z79.891 Long term (current) use of opiate analgesic
CPT/HCPCS: 52352; 52332; 36415; 74177; 74420; 80053; 81001; 82365; 83615; 83690; 85025; 88300; 96361; 96374; 96375; 96376; 99285; A9270; C1769; C2617; G0378; J0690; J1100; J1170; J1885; J2250; J2405; J2704; J3010; J7030; J7120; Q9967; U0003; U0005

== ENCOUNTER 2022-06-25 22:56 | Emergency (ER) | payer BC, SELFPAY ==
--- NOTE | ~2022-06-25 | CT_ITS ---
EXAMINATION: CT abdomen pelvis wo con DATE: 06/25/2022 23:33 INDICATION: Kidney stone TECHNIQUE: Computed tomography (CT) of the abdomen and pelvis was performed without intravenous contr ast. Automated exposure control and iterative reconstruction technique were employed. Exam dose: 371 .92 mGy-cm total exam DLP. COMPARISON: 06/2022 left retrograde pyelogram 06/23/2022 CT abdomen pelvis FINDINGS: The lung bases are clear. Normal heart size. No pericardial or pleural effusion. The gallbladder is contracted. No hepatic, splenic, pancreatic or adrenal space-occupying mass lesion . 1.8 mm nonobstructing lower pole right renal calculus. No right ureteral calculus or hydroureteroneph rosis. There is a left internal urinary stent in expected position. There is mild left hydroureteronephrosis without identifiable left urinary tract calculus. There is some periureteral stranding. The urinary bladder is unremarkable. Prostate enlargement and calcifications. Normal caliber of the abdominal aorta. No intraperitoneal or retroperitoneal or pelvic mass lesion or adenopathy or ascites can with the exception of minimal free fluid in the dependent pelvis. Normal appendix. There is a prominent amount of fecal material within the colon. No bowel obstruction is noted. No int raperitoneal free air. Small fat-containing umbilical hernia. No evidence of inguinal hernia. Moderate degenerative disc disease at L5-S1. No suspicious osteolytic or osteoblastic lesions are not ed. IMPRESSION: Left internal urinary stent Nonspecific mild left hydroureteronephrosis without identifiable calculus 1.8 mm nonobstructing lower pole right renal calculus Reviewed, dictated and finalized at [facility]. Reviewed, dictated and finalized at [facility]. COVERER
[2022-06-25 23:00] VITALS: BP 154/104; PULSE 88; RESP 20; TEMP 36.8; O2SAT 99
--- NOTE | 2022-06-25 23:09 | ED.ABDPAIN ---
HPI - Abdominal Pain General Chief Complaint: Urogenital-Male Stated Complaint: kidney stone Time Seen by Provider: 06/25/22 23:06 Source: patient and RN notes reviewed Mode of arrival: ambulatory Limitations: no limitations History of Present Illness HPI narrative: Patient states that he had a lithotripsy and ureter stent placed 7:30 a.m. yesterday now about 38 hours since the procedure. Then 1-1/2 hours prior to arrival he began having severe left flank pain again exactly the same as what took him to the hospital yesterday morning. He still has the ureter stent in place. He denies any fever chills. MD elicited complaint: flank pain Pertinent past history: kidney stones Onset (ago): hour(s) (1.5) Pain Consistency: constant Location: L flank Severity: severe Quality: stabbing and sharp Radiation: none Migration to: no migration Exacerbating factors: movement Relieving factors: nothing Context: confirms recent surgery/procedure Associated symptoms: nausea Related Data Allergies Allergy/AdvReac Type Severity Reaction Status Date / Time aspirin Allergy Unknown Other Verified 06/23/22 13:08 celecoxib Allergy Unknown Other Verified 06/23/22 13:08 citalopram Allergy Unknown Other Verified 06/23/22 13:08 codeine Allergy Unknown Unknown Verified 06/23/22 13:08 NSAIDS (Non-Steroidal Allergy Unknown Other Verified 06/23/22 13:08 Anti-Inflamma tramadol Allergy Unknown Other Verified 06/23/22 13:08 Review of Systems Review of Systems: All systems reviewed & are unremarkable except as noted in HPI and below PMFSH Past Medical History Medical History Ankle injury History of kidney stones No active medical problems Tobacco abuse Surgical History Surgical History History of ankle surgery Family History Family History Father Accident Social History Social History Social History: The patient lives with his and she is the durable power litigation attorney for healthcare. He has 3 biological children and 2 step children. The patient continues to smoke at least 10 cigarettes a day. He denies any alcohol marijuana or illicit drugs. Smoking packs per day: 0.5 Smoking cigarettes per day: 10.0 Years smoked: 20 Smoking pack-years: 10.00 Smoking status: Current every day smoker Tobacco type: cigarettes Additional smoking assessment comments: down from 2 and half packs per day Alcohol intake: current Drinks per week: 0 Alcohol use details: rare Substance use: current Substance use type: marijuana Other substance usage details: not much Last use: 06/22/2022 Lack of Transportation: No Lack of Food: Never True Current Housing: I Have Housing Concerned About Future Housing: No Difficulty Paying Gas/Electric Bills: No Difficulty Paying for Meds: No Currently Unemployed: No Education: Decline to Answer Difficulty w/ Childcare or Family Care: No Spiritual care concerns: No Exam Const: General: ill appearing acutely ( Appears in pain) Nutritional Appearance: well nourished Orientation/consciousness: patient oriented x3 Limitations: no limitations HENMT: Head: normal to inspection Ears: external ears normal Mouth: Yes moist mucous membranes Eyes: Conjunctivae: conjunctivae normal Pupils: Equal, round and reactive pupils present EOM: EOMs intact bilaterally Neck: Neck: normal visual inspection Resp: Effort & Inspection: normal respiratory effort Auscultation: clear to auscultation bilaterally Cardio: Rate: regular rate Rhythm: regular rhythm GI: GI Palp: Yes Soft to palpation and No Tenderness to palpation present (GI) Auscultation: normal bowel sounds Back/Spine/Pelvis: Back: CVA tenderness ( severe on the left) Cervical Spine: cervical ROM normal Thoracic/Melany
[2022-06-25] MEDS: KETOROLAC 30 MG/ML VIAL (*BKC) IV PUSH (23:17)
[2022-06-25 23:25] LABS: Basophils Absolute Auto 0.04 K/mm3 (0.00-0.10); Basophils Percent Auto 0.5 % (0.0-1.0); Eosinophils Absolute Auto 0.22 K/mm3 (0.02-0.50); Eosinophils Percent Auto 2.6 % (1.0-6.0); Hematocrit 37.8 % (40.0-54.0); Hemoglobin 13.3 g/dL (14.0-18.0); Immature Granulocyte Absolute 0.02 K/mm3 (0.00-0.00); Immature Granulocyte Percent A 0.2 % (0.0-0.0); Lymphocytes Percent Auto 33.4 % (18.0-42.0); Mean Corpuscular HGB Conc 35.2 g/dL (32.0-36.0); Mean Corpuscular Hemoglobin 32.4 pg (27.0-31.0); Mean Corpuscular Volume 92.2 fL (78.0-102.0); Mean Platelet Volume 10.1 fl (8.7-11.0); Monocytes Absolute Auto 0.77 K/mm3 (0.10-0.90); Monocytes Percent Auto 9.2 % (2.0-11.0); Neutrophils Absolute Auto 4.5 K/mm3 (1.7-7.2); Neutrophils Percent Auto 54.1 % (50.0-70.0); Platelet Count Result 205 K/mm3 (150-420); Red Cell Distribution Width 12.3 % (11.6-14.4); White Blood Count 8.4 K/mm3 (4.8-10.8)
[2022-06-25 23:31] LABS: Appearance Urine Clear (Clear); Bilirubin Urine Negative (Negative); Blood Urine 3+ (Negative); Glucose Urine UA Negative (Negative); Ketones Urine Negative (Negative); Leukocyte Esterase Ur Trace LEU/UL (Negative); Nitrate Urine Negative (Negative); Protein Urine 2+ (Negative); Specific Grav Ur 1.025 (1.010-1.020); pH Urine 6.5 (5.0-8.0)
[2022-06-25 23:45] LABS: Add Urine Microscopic? YES; Color Urine Dark Red (Yellow); RBC Urine >75 /hpf (0-2); Squamous Epithelial Cell Urine None seen /hpf (Few)
[2022-06-25 23:46] LABS: Bacteria Urine Trace /hpf
[2022-06-25 23:47] LABS: Alanine Aminotransferase 26 U/L (16-63); Albumin Level 3.6 g/dL (3.4-5.0); Alkaline Phosphatase 105 U/L (46-116); Anion Gap 9 mmol/L (8-16); Aspartate Amino Transferase 12 U/L (15-37); Bilirubin,Total 0.2 mg/dL (0.00-1.00); Blood Urea Nitrogen 14 mg/dL (7-18); Calcium 8.1 mg/dL (8.5-10.1); Carbon Dioxide 27 mmol/L (21-32); Chloride 109 mmol/L (98-108); Estimated Glomerular Filt Rate > 60; Glucose 129 mg/dL (70-99); Osmolality Calculated 302 mOsm/kg (285-295); Potassium 3.3 mmol/L (3.5-5.1); Sodium 145 mmol/L (136-145); Total Protein 6.3 g/dL (6.4-8.2)
[2022-06-25] MEDS: TAMSULOSIN HCL 0.4 MG CAPSULE PO (23:52)
[2022-06-26 00:13] VITALS: BP 118/83; PULSE 97; RESP 20; TEMP 36.6; O2SAT 99
== END 2022-06-26 00:15 | disposition home or self-care (01) ==
LOC: CHSED 06-26
PROVIDERS: Emergency Provider Emergency Medicine
DX: Z98.890 Other specified postprocedural states (principal)
CPT/HCPCS: 36415; 74176; 80053; 81001; 85025; 96374; 99284; A9270; J1885

== ENCOUNTER 2022-08-07 15:29 | Emergency (ER) | payer BC, SELFPAY ==
[2022-08-07] VITALS (7 sets, daily range): BP systolic 141–143; BP diastolic 82–104; PULSE 20–97; RESP 18–28; TEMP 33.8–36.4; O2SAT 99–100
--- NOTE | ~2022-08-07 | XR_ITS ---
XR chest 2V DATE: 08/07/2022 16:08 INDICATION: Chemical fume inhalation. Chest burning, cough TECHNIQUE: 2 views COMPARISON: 03/06/2017 PA and lateral chest FINDINGS: Normal heart size. No hilar or mediastinal enlargement. No pulmonary infiltrate or consolid ation, pleural effusion or pulmonary vascular congestion or pneumothorax. 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 Minimal thoracic scoliosis. IMPRESSION: No active cardiopulmonary disease Reviewed, dictated and finalized at [facility]. OM TAILOR
--- NOTE | 2022-08-07 15:32 | ED.BURNSMOKE ---
HPI - Burn/Smoke Inhalation General Chief complaint: Shortness of Breath/Dyspnea Stated complaint: inhalation of chemical fumes Time Seen by Provider: 08/07/22 15:31 Source: patient and RN notes reviewed Mode of arrival: wheelchair Limitations: no limitations History of Present Illness HPI Narrative: patient was at home in his garage working with [employer] chemicals. Of another family member accidentally kicked over some bleach on to some rust remover. This created some fumes patient inhaled. He is coughing and says his lungs feel like they are on fire. Complaint: chemical exposure Onset (ago): minute(s) (10) Type of Exposure: chemical Smoke Inhalation: brief Severity: severe Associated symptoms: shortness of breath and cough Related Data Allergies Allergy/AdvReac Type Severity Reaction Status Date / Time aspirin Allergy Unknown Other Verified 08/07/22 15:35 celecoxib Allergy Unknown Other Verified 08/07/22 15:35 citalopram Allergy Unknown Other Verified 08/07/22 15:35 codeine Allergy Unknown Unknown Verified 08/07/22 15:35 NSAIDS (Non-Steroidal Allergy Unknown Other Verified 08/07/22 15:35 Anti-Inflamma tramadol Allergy Unknown Other Verified 08/07/22 15:35 Review of Systems Review of Systems: All systems reviewed & are unremarkable except as noted in HPI and below Constitutional: Constitutional: Denies chills and Denies fever(s) Cardiovascular: Cardiovascular: Denies chest pain Respiratory: Respiratory: Reports as per HPI Gastrointestinal: Gastrointestinal: Denies nausea and Denies vomiting PMFSH Past Medical History Medical History (Updated 08/07/22 @ 16:43 by Ray Warner MD) Ankle injury History of kidney stones Hx pulmonary embolism Tobacco abuse Surgical History Surgical History History of ankle surgery Family History Family History Father Accident Social History Social History Social History: The patient lives with his and she is the durable power health care attorney for healthcare. He has 3 biological children and 2 step children. The patient continues to smoke at least 10 cigarettes a day. He denies any alcohol marijuana or illicit drugs. Smoking packs per day: 0.5 Smoking cigarettes per day: 10.0 Years smoked: 20 Smoking pack-years: 10.00 Smoking status: Current every day smoker Tobacco type: cigarettes Additional smoking assessment comments: down from 2 and half packs per day Alcohol intake: current Drinks per week: 0 Alcohol use details: rare Substance use: current Substance use type: marijuana Other substance usage details: not much Last use: 06/22/2022 Lack of Transportation: No Lack of Food: Never True Current Housing: I Have Housing Concerned About Future Housing: No Difficulty Paying Gas/Electric Bills: No Difficulty Paying for Meds: No Currently Unemployed: No Education: Decline to Answer Difficulty w/ Childcare or Family Care: No Spiritual care concerns: No Exam Const: General: no acute distress, alert and ill appearing acutely Nutritional Appearance: well nourished Orientation/consciousness: patient oriented x3 Limitations: no limitations HENMT: Head: normal to inspection Ears: external ears normal Face/Nose/Sinus: Normal external nose present Face and sinus: normal facial exam Mouth: Yes moist mucous membranes Eyes: Conjunctivae: conjunctivae normal Pupils: Equal, round and reactive pupils present EOM: EOMs intact bilaterally Neck: Neck: normal visual inspection Resp: Effort & Inspection: labored and not tachypneic Auscultation: wheezes scattered wheezes Cardio: Rate: regular rate Rhythm: regular rhythm GI: GI Palp: Yes Soft to palpation and No Tenderness to palpation present (GI) Auscultation: normal bowel sounds Back/Spine/Pelvis: Cervical Spi
[2022-08-07] MEDS: IPRATROPIUM 0.5 MG/ALBUTEROL SULFATE 2.5 MG AMPUL.NEB 3 ML INHALATION (15:41)
[2022-08-07] MEDS: methylPREDNISolone SOD SUCC 125 MG VIAL IM (16:25)
[2022-08-07] MEDS: BENZONATATE 100 MG CAPSULE 200 MG PO (16:33)
--- NOTE | 2022-08-07 16:45 | PC.NURSE ---
PT HAS FORCEFUL HACKING COUGH, AT BEDSIDE. PT IS NOTED TO COUGH MORE WHEN SOMEONE IS PRESENT IN THE ROOM. NO RESP DISTRESS NOTED. PT CONTINUES TO REPORT BURNING WITH BREATHING AND SIDE PAIN WHEN COUGHING. VSS. WILL CONTINUE TO MONITOR.
== END 2022-08-07 16:50 | disposition home or self-care (01) ==
PROVIDERS: Emergency Provider Emergency Medicine
DX: R06.02 Shortness of breath (principal); T59.891A Toxic effect of other specified gases, fumes and vapors, accidental (unintentional), initial encounter; F17.210 Nicotine dependence, cigarettes, uncomplicated
CPT/HCPCS: 71046; 94640; 96372; 99283; A9270; J2930

== ENCOUNTER 2022-11-10 15:00 | Emergency (ER) | payer BC, SELFPAY ==
[2022-11-10] VITALS (9 sets, daily range): BP systolic 125–160; BP diastolic 90–108; PULSE 60–90; RESP 12–20; TEMP 36.6; O2SAT 95–100
--- NOTE | ~2022-11-10 | XR_ITS ---
EXAMINATION: XR chest 2V Exam Date/Time: 11/10/2022 15:34 CDT HISTORY: CHEST PAIN Comparison: 08/07/2022. RESULT: Lines, tubes, and devices: None. Lungs and pleura: Clear. Cardiomediastinal silhouette: Stable. Other: No acute osseous or upper abdominal finding. Loose joint body projecting over the left should er, with degenerative changes in the glenohumeral joint. IMPRESSION: No acute cardiopulmonary process. Reviewed, dictated and finalized at location K.
--- NOTE | ~2022-11-10 | CT_ITS ---
EXAMINATION: CTA chest PE protocol DATE: 11/10/2022 19:14 INDICATION: severe CP, hx PE, feels similar, not on AC TECHNIQUE: Computed tomography angiography (CTA) of the chest was performed with 100 mL Omnipaque-350 intravenous contrast timed to evaluate the pulmonary arteries. Coronal maximum intensity projection 3D-reconstructions were created by the technologist. The dose-length product (DLP) was 330.92 mGy-cm. Automated exposure control and iterative reconstruction technique were employed. COMPARISON: X-ray chest, same date. FINDINGS: Lung parenchyma and airways: Clear. Pleura: Unremarkable. Thoracic inlet, axillae and chest wall: Unremarkable. Thoracic aorta: Normal. Mediastinum: Normal. Heart and pericardium: Normal. Coronary artery calcifications: Absent. Upper abdomen: No significant finding. Bones: No acute osseous finding. Pulmonary arteries: Study quality: Adequate. No pulmonary emboli detected. IMPRESSION: No CT evidence of acute pulmonary embolus. No acute intrathoracic process detected. Reviewed, dictated and finalized at location K. IMPRESSION: No CT evidence of acute pulmonary embolus. No acute intrathoracic process detec jonathon.
--- NOTE | 2022-11-10 15:01 | ECG_ITS ---
Measurements Intervals [place] Rate: 106 P: 67 OR: 136 QRS: -60 QRSD: 89 T: 44 QT: 304 QTc: 405 Interpretive Statements SINUS TACHYCARDIA MARKED LEFT AXIS DEVIATION [QRS AXIS < -30] NO PREVIOUS ECG AVAILABLE FOR COMPARISON Electronically Signed On 11-11-2022 7:43:11 CDT by Michael Godfrey M.D.
[2022-11-10 15:34] LABS: Basophils Percent Auto 0.4 % (0.2-1.2); Eosinophils Absolute Auto 0.3 K/mm3 (0-0.3); Eosinophils Percent Auto 3.6 % (0-4.4); Hematocrit 44.2 % (42.0-52.0); Hemoglobin 15.3 g/dL (14.0-18.0); Immature Granulocyte Absolute 0.02 K/mm3 (0.00-0.031); Immature Granulocyte Percent A 0.3 % (0-0.5); Lymphocytes Absolute Auto 2.13 K/mm3 (0.9-3.2); Lymphocytes Percent Auto 30.9 % (18.3-44.2); Mean Corpuscular HGB Conc 34.6 g/dl (32-36); Mean Corpuscular Volume 92.5 fl (80-100); Mean Platelet Volume 10.1 fl (7.4-10.4); Monocytes Absolute Auto 0.6 K/mm3 (0.1-0.6); Monocytes Percent Auto 8.9 % (2.6-8.5); Neutrophils Absolute Auto 3.9 K/mm3 (1.3-6.7); Neutrophils Percent Auto 55.9 % (45.5-73.1); Platelet Count Result 241 k/mm3 (150-375); Red Blood Count 4.78 M/mm3 (4.6-6.20); Red Cell Distribution Width 12.3 % (11.5-14.5); White Blood Count 6.9 K/mm3 (4.5-10.0)
[2022-11-10 15:47] LABS: Alanine Aminotransferase 46 U/L (6-50); Albumin Level 4.7 g/dL (3.5-5.1); Alkaline Phosphatase 83 U/L (38-126); Anion Gap 8 mmol/L (8-16); Aspartate Amino Transferase 37 U/L (17-59); Bilirubin,Total 0.5 mg/dL (0.2-1.3); Blood Urea Nitrogen 15 mg/dL (9-20); Calcium 9.2 mg/dL (8.4-10.2); Carbon Dioxide 26 mmol/L (22-30); Chloride 104 mmol/L (98-107); Estimated CRCL calculation 136 ml/min; Estimated Glomerular Filt Rate > 60; Glucose 85 mg/dL (65-110); Lipase 71 U/L (23-300); Potassium 3.9 mmol/L (3.4-5.0); Sodium 138 mmol/L (137-145)
[2022-11-10 16:04] LABS: Troponin I < 0.012 ng/mL (0.000-0.034)
[2022-11-10 16:10] LABS: Partial Thromboplastin Time 27.3 SECONDS (22.3-36.8)
[2022-11-10 16:44] LABS: INR 1.2
[2022-11-10 16:45] LABS: Prothrombin Time 14.4 Seconds (11.1-14.7)
--- NOTE | 2022-11-10 18:21 | ED.CHESTPAIN ---
HPI - Chest Pain General Chief Complaint: Chest Pain Stated Complaint: CHEST PAIN, HX PE Time Seen by Provider: 11/10/22 18:21 History of Present Illness HPI narrative: Patient is a 32-year-old male here for evaluation of chest pain. Patient states the pain started while he was at rest around 4 hours prior to arrival. Described as sharp and shooting in the right side of his chest. History of PE when he was 16, not on anticoagulation, states that pain today is similar. Patient is unsure what triggered the PE or why he doesn't take blood thinners. He was given morphine in the ambulance without relief. No ripping/tearing quality of pain, shortness of breath, leg swelling, fevers or chills, congestion, back pain, abdominal pain. Related Data Allergies Allergy/AdvReac Type Severity Reaction Status Date / Time aspirin Allergy Unknown Other Verified 11/10/22 18:46 celecoxib Allergy Unknown Other Verified 11/10/22 18:46 citalopram Allergy Unknown Other Verified 11/10/22 18:46 codeine Allergy Unknown Unknown Verified 11/10/22 18:46 NSAIDS (Non-Steroidal Allergy Unknown Other Verified 11/10/22 18:46 Anti-Inflamma tramadol Allergy Unknown Other Verified 11/10/22 18:46 Review of Systems Review of Systems: Gen: Denies fevers or chills Eyes: Denies eye pain or visual change ENT: Denies congestion Respiratory: Denies shortness of breath or cough CV: Reports chest pain GI: Denies abdominal pain nausea, emesis or diarrhea denies burning, urgency, frequency or hematuria Musculoskeletal: Denies back pain or muscle pain Neuro: Denies numbness, tingling, weakness or focal weakness Skin: Denies rash Except as documented, all other systems reviewed and negative [facility] Past Medical History Medical History Ankle injury History of kidney stones Hx pulmonary embolism Tobacco abuse Surgical History Surgical History History of ankle surgery Family History Family History Father Accident Social History Social History Social History: The patient lives with his and she is the durable power customer relations assistant for healthcare. He has 3 biological children and 2 step children. The patient continues to smoke at least 10 cigarettes a day. He denies any alcohol marijuana or illicit drugs. Smoking packs per day: 0.5 Smoking cigarettes per day: 10.0 Years smoked: 20 Smoking pack-years: 10.00 Smoking status: Current every day smoker Tobacco type: cigarettes Additional smoking assessment comments: down from 2 and half packs per day Alcohol intake: current Drinks per week: 0 Alcohol use details: rare Substance use: current Substance use type: marijuana Other substance usage details: not much Last use: 06/22/2022 Lack of Transportation: No Lack of Food: Never True Current Housing: I Have Housing Concerned About Future Housing: No Difficulty Paying Gas/Electric Bills: No Difficulty Paying for Meds: No Currently Unemployed: No Education: Decline to Answer Difficulty w/ Childcare or Family Care: No Spiritual care concerns: No Exam Narrative: APPEARANCE: Uncomfortable appearing. Head: Normocephalic and atraumatic. EYES: PERRLA/EOMI, conjunctivae clear NOSE: No nasal drainage EARS: External ear normal in appearance THROAT: Oropharynx is clear. Mucous membranes are moist. NECK: Supple. No adenopathy, no masses. RESPIRATORY: Airway patent, respirations nonlabored. Clear to auscultation bilaterally, no rales, rhonchi, wheezing. CARDIOVASCULAR: No pulse differential. Regular rate and rhythm without murmurs, rubs, or gallops. ABDOMINAL: Normoactive bowel sounds. Soft, nontender, nondistended. No rebound tenderness or guarding. MUSCULOSKELETAL: Extremities are warm and well-perfus
[2022-11-10] MEDS: fentaNYL CITRATE INJ (*CRX) 100 MCG/2 ML VIAL 50 MCG IV PUSH ×2 (18:49→20:30)
[2022-11-10 19:16] LABS: NT Pro B Type Natriuretic Pept 43 pg/mL (19.9-100)
[2022-11-10 19:19] LABS: Troponin I < 0.012 ng/mL (0.000-0.034)
[2022-11-10 20:10] LABS: CRP 0.5 mg/dL (<1.0)
[2022-11-10 20:26] LABS: Erythrocyte Sedimentation Rate 7 mm/hr (0-20)
[2022-11-10 21:33] LABS: Troponin I < 0.012 ng/mL (0.000-0.034)
== END 2022-11-10 22:00 | disposition home or self-care (01) ==
PROVIDERS: Emergency Medicine; Emergency Provider Physician Assistant
DX: R07.9 Chest pain, unspecified (principal); F17.210 Nicotine dependence, cigarettes, uncomplicated; Z87.442 Personal history of urinary calculi; Z86.711 Personal history of pulmonary embolism; R00.0 Tachycardia, unspecified
CPT/HCPCS: 36415; 71046; 71275; 80053; 83690; 83880; 84484; 85025; 85610; 85652; 85730; 86140; 93005; 96374; 96376; 99284; J3010; Q9967

== ENCOUNTER 2022-11-26 14:53 | Emergency (ER) | payer BC, SELFPAY ==
--- NOTE | ~2022-11-26 | XR_ITS ---
EXAMINATION: XR chest 2V DATE: 11/26/2022 15:26 INDICATION: Cough and shortness of breath TECHNIQUE: PA and lateral views of the chest were obtained. COMPARISON: Chest radiograph dated 11/10/22 FINDINGS: The lungs remain clear with no focal airspace opacities, pulmonary edema, pleural effusion or pneumot horax. The cardiomediastinal silhouette is normal. Large osteochondral body at the deep subscapular r ecess of the left shoulder. Mild thoracic levocurvature. IMPRESSION: 1. No acute cardiopulmonary disease. Reviewed, dictated and finalized at location A.
[2022-11-26 14:58] VITALS: BP 190/117; PULSE 94; RESP 17; TEMP 36.2; O2SAT 100
[2022-11-26 15:00] VITALS: O2SAT 100
--- NOTE | 2022-11-26 15:02 | ECG_ITS ---
Measurements Intervals [place] Rate: 78 P: 58 [place]: 148 QRS: 83 QRSD: 96 T: 34 QT: 334 QTc: 381 Interpretive Statements SINUS RHYTHM WITH MARKED SINUS ARRHYTHMIA BASELINE ARTIFACT- I, III, AVL, AVF, V4-V6 BORDERLINE ECG COMPARED TO ECG 11/10/2022 15:11:08 SINUS RHYTHM NOW PRESENT SINUS ARRHYTHMIA NOW PRESENT Electronically Signed On 11-26-2022 15:37:44 CDT by Wilfrid Potts D.O.
[2022-11-26 15:42] LABS: Base Excess ABG 1.6 mmol/L (0-2); Basophils Absolute Auto 0.06 K/mm3 (0.00-0.10); Basophils Percent Auto 0.6 % (0.0-1.0); Eosinophils Absolute Auto 0.28 K/mm3 (0.02-0.50); Eosinophils Percent Auto 2.6 % (1.0-6.0); HCO3 ABG 25.2 mmol/L (23-29); Hematocrit 40.8 % (40.0-54.0); Hemoglobin 14.7 g/dL (14.0-18.0); Immature Granulocyte Absolute 0.03 K/mm3 (0.00-0.00); Immature Granulocyte Percent A 0.3 % (0.0-0.0); Lymphocytes Absolute Auto 1.88 K/mm3 (1.10-4.50); Lymphocytes Percent Auto 17.6 % (18.0-42.0); Mean Corpuscular Hemoglobin 31.9 pg (27.0-31.0); Mean Corpuscular Volume 88.5 fL (78.0-102.0); Monocytes Absolute Auto 0.85 K/mm3 (0.10-0.90); Neutrophils Absolute Auto 7.6 K/mm3 (1.7-7.2); Neutrophils Percent Auto 70.9 % (50.0-70.0); Oxygen Content ABG 20.9 %vol (16.0-22.0); Oxygen Saturation ABG 97.4 % (95-97); Oxyhemoglobin 94.1 % (94-100); PCO2 ABG 36.6 mmHg (35-45); PO2 ABG 100.5 mmHg (80-90); Platelet Count Result 215 K/mm3 (150-420); Red Blood Count 4.61 M/mm3 (4.70-6.10); Red Cell Distribution Width 11.5 % (11.6-14.4); Total Hemoglobin 15.7 g/dL (12.0-18.0); White Blood Count 10.7 K/mm3 (4.8-10.8); pH ABG 7.46 (7.35-7.45)
[2022-11-26 15:43] LABS: Device ROOM AIR; Modified Allen's Test Pass; Site Drawn LEFT RADIAL
[2022-11-26 15:52] LABS: Influenza A QL RT-PCR Negative (Negative); Influenza B QL RT-PCR Negative (Negative); RSV RNA, RT-PCR Negative (Negative); SARS-CoV-2 RNA PCR Negative (Negative)
[2022-11-26 16:00] LABS: Alanine Aminotransferase 28 U/L (16-63); Albumin Level 3.8 g/dL (3.4-5.0); Alkaline Phosphatase 97 U/L (46-116); Anion Gap 10 mmol/L (8-16); Aspartate Amino Transferase 16 U/L (15-37); Bilirubin,Total 0.3 mg/dL (0.00-1.00); Blood Urea Nitrogen 8 mg/dL (7-18); Calcium 8.7 mg/dL (8.5-10.1); Carbon Dioxide 25 mmol/L (21-32); Chloride 107 mmol/L (98-108); D Dimer 0.34 mg/L (0.19-0.50); Estimated Glomerular Filt Rate 59; Glucose 109 mg/dL (70-99); Osmolality Calculated 293 mOsm/kg (285-295); Sodium 142 mmol/L (136-145); Total Protein 7.1 g/dL (6.4-8.2)
--- NOTE | 2022-11-26 16:01 | ED.SOB ---
HPI - SOB/Dyspnea General Chief Complaint: Shortness of Breath/Dyspnea Stated Complaint: SOB Time Seen by Provider: 11/26/22 15:00 Source: patient Mode of arrival: ambulatory Limitations: no limitations History of Present Illness HPI Narrative: 32 yaer old male presents to the Emergency Department complaining of difficulty breathing, cough and congestion. Onset prior to arrival. Smoker. No fever, nausea, vomiting, diarrhea. MD elicited complaint: shortness of breath and cough Onset (ago): minute(s) Context: smoke/fume exposure Timing: constant Severity: moderate Exacerbating factors: nothing Relieving factors: nothing Associated symptoms: denies other symptoms Treatment prior to arrival: none Related Data Home oxygen amount: none Allergies Allergy/AdvReac Type Severity Reaction Status Date / Time aspirin Allergy Unknown Other Verified 11/26/22 15:01 celecoxib Allergy Unknown Other Verified 11/26/22 15:01 citalopram Allergy Unknown Other Verified 11/26/22 15:01 codeine Allergy Unknown Unknown Verified 11/26/22 15:01 NSAIDS (Non-Steroidal Allergy Unknown Other Verified 11/26/22 15:01 Anti-Inflamma tramadol Allergy Unknown Other Verified 11/26/22 15:01 Review of Systems Review of Systems: All systems reviewed & are unremarkable except as noted in HPI and below Constitutional: Constitutional: Reports as per HPI Eyes: Eyes: Reports as per HPI ENT: Reports system reviewed and no additional complaints, except as documented Cardiovascular: Cardiovascular: Reports as per HPI Respiratory: Respiratory: Reports as per HPI, Reports chest congestion, Reports cough and Reports dyspnea Gastrointestinal: Gastrointestinal: Reports as per HPI Genitourinary: Genitourinary: Reports no additional male genitourinary complaints Musculoskeletal: Musculoskeletal: Reports no additional musculoskeletal complaints Integumentary/Breasts: Skin/Breast: Reports system reviewed and no additional complaints, except as docu Neurologic: Reports system reviewed and no additional complaints, except as documented PMFSH Past Medical History Medical History Ankle injury History of kidney stones Hx pulmonary embolism Tobacco abuse Surgical History Surgical History History of ankle surgery Family History Family History Father Accident Social History Social History Social History: The patient lives with his and she is the durable power prosecuting attorney for healthcare. He has 3 biological children and 2 step children. The patient continues to smoke at least 10 cigarettes a day. He denies any alcohol marijuana or illicit drugs. Smoking packs per day: 0.5 Smoking cigarettes per day: 10.0 Years smoked: 20 Smoking pack-years: 10.00 Smoking status: Current every day smoker Tobacco type: cigarettes Additional smoking assessment comments: down from 2 and half packs per day Alcohol intake: current Drinks per week: 0 Alcohol use details: rare Substance use: current Substance use type: marijuana Other substance usage details: not much Last use: 06/22/2022 Lack of Transportation: No Lack of Food: Never True Current Housing: I Have Housing Concerned About Future Housing: No Difficulty Paying Gas/Electric Bills: No Difficulty Paying for Meds: No Currently Unemployed: No Education: Decline to Answer Difficulty w/ Childcare or Family Care: No Spiritual care concerns: No Exam Const: Nutritional Appearance: well nourished Orientation/consciousness: patient oriented x3 Limitations: no limitations Other: anxious and hyperventilating HENMT: Head: normal to inspection Ears: external ears normal Face/Nose/Sinus: Normal external nose present Face and sinus: normal facial exam
[2022-11-26] MEDS: IPRATROPIUM 0.5 MG/ALBUTEROL SULFATE 2.5 MG AMPUL.NEB 3 ML INHALATION (16:08)
[2022-11-26 16:10] VITALS: PULSE 99; RESP 18; O2SAT 96
[2022-11-26 16:25] VITALS: PULSE 95; RESP 16
[2022-11-26 16:33] VITALS: BP 171/110; PULSE 98; RESP 17; TEMP 36.9; O2SAT 100
== END 2022-11-26 16:35 | disposition home or self-care (01) ==
PROVIDERS: Emergency Provider Emergency Medicine; PCP Internal Medicine
DX: J40 Bronchitis, not specified as acute or chronic (principal); R06.4 Hyperventilation; F17.210 Nicotine dependence, cigarettes, uncomplicated; Z86.711 Personal history of pulmonary embolism; Z20.822 Contact with and (suspected) exposure to COVID-19
CPT/HCPCS: 36415; 36600; 71046; 80053; 82805; 85025; 85380; 87637; 93005; 94640; 99283

== ENCOUNTER 2023-04-19 18:03 | Emergency (ER) | payer BC, SELFPAY ==
--- NOTE | ~2023-04-19 | XR_ITS ---
EXAMINATION: XR hand LT 2V DATE: 04/19/2023 18:23 INDICATION: Laceration to the left second digit TECHNIQUE: Posteroanterior and lateral views of the left hand were obtained. COMPARISON: None. FINDINGS: Alignment is normal. No fracture. Joint spaces are normal. Mild soft tissue swelling about the second finger. No radiopaque foreign bodies. IMPRESSION: 1. No osseous abnormality or radiopaque foreign body. Reviewed, dictated and finalized at location A.
[2023-04-19 18:04] VITALS: BP 152/82; PULSE 84; RESP 19; TEMP 36.8; O2SAT 98
--- NOTE | 2023-04-19 18:11 | ED.GENADULT ---
HPI - General Adult General Chief complaint: Wound/Laceration Stated complaint: laceration R finger Time Seen by Provider: 04/19/23 18:08 Source: patient History of Present Illness HPI narrative: 32-year-old male presenting with laceration to the hand. Patient states he cut his posterior hand with a piece of glass. He states the glass was intact and there is nothing in the wound. He also states he had his tetanus shot updated approximately 4 months ago. Related Data Home Medications Medication Instructions Recorded Confirmed cyclobenzaprine 5 mg tablet 5 mg PO TID PRN Spasms 04/19/23 04/19/23 diclofenac sodium 75 mg 75 mg PO BID PRN Pain 04/19/23 04/19/23 tablet,delayed release famotidine 40 mg tablet 40 mg PO DAILY 04/19/23 04/19/23 gabapentin 300 mg capsule 300 - 600 mg PO HS 04/19/23 04/19/23 Allergies Allergy/AdvReac Type Severity Reaction Status Date / Time aspirin Allergy Unknown Other Verified 11/26/22 15:01 celecoxib Allergy Unknown Other Verified 11/26/22 15:01 citalopram Allergy Unknown Other Verified 11/26/22 15:01 codeine Allergy Unknown Unknown Verified 11/26/22 15:01 NSAIDS (Non-Steroidal Allergy Unknown Other Verified 11/26/22 15:01 Anti-Inflamma tramadol Allergy Unknown Other Verified 11/26/22 15:01 [facility] Past Medical History Medical History Ankle injury History of kidney stones Hx pulmonary embolism Tobacco abuse Surgical History Surgical History History of ankle surgery Family History Family History Father Accident Social History Social History Social History: The patient lives with his and she is the durable power manager work for healthcare. He has 3 biological children and 2 step children. The patient continues to smoke at least 10 cigarettes a day. He denies any alcohol marijuana or illicit drugs. Smoking packs per day: 0.5 Smoking cigarettes per day: 10.0 Years smoked: 20 Smoking pack-years: 10.00 Smoking status: Current every day smoker Tobacco type: cigarettes Additional smoking assessment comments: down from 2 and half packs per day Alcohol intake: current Drinks per week: 0 Alcohol use details: rare Substance use: current Substance use type: marijuana Other substance usage details: not much Last use: 06/22/2022 Lack of Transportation: No Lack of Food: Never True Current Housing: I Have Housing Concerned About Future Housing: No Difficulty Paying Gas/Electric Bills: No Difficulty Paying for Meds: No Currently Unemployed: No Education: Decline to Answer Difficulty w/ Childcare or Family Care: No Spiritual care concerns: No Exam Narrative: Small 1 cm hemostatic laceration to the posterior hand. All other systems otherwise unremarkable/ negative. Course Vital Signs Vital signs: Vital Signs Temperature 36.8 C 04/19/23 18:04 Pulse Rate 84 04/19/23 18:04 Respiratory Rate 19 04/19/23 18:04 Blood Pressure 152/82 H 04/19/23 18:04 Pulse Oximetry 98 04/19/23 18:04 Oxygen Delivery Room Air 04/19/23 18:04 Temperature 36.8 C 04/19/23 18:04 Pulse Rate 84 04/19/23 18:04 Respiratory Rate 19 04/19/23 18:04 Blood Pressure 152/82 H 04/19/23 18:04 Pulse Oximetry 98 04/19/23 18:04 Oxygen Delivery Room Air 04/19/23 18:04 Procedures Laceration Laceration 1: Date: 04/19/23 Time: 18:36 Site: hand Side (If applicable): left Size (cm): 1 Description: linear Depth: simple, single layer Local Anesthetic: lidocaine 1% Pre-repair: irrigated ====== Skin Level ====== Skin layer closed with: nylon Size (cm): 5-0 Number of sutures: 2 Technique: simple, interrupted ==
[2023-04-19 18:44] VITALS: BP 146/74; PULSE 84; RESP 20; TEMP 36.7; O2SAT 97
== END 2023-04-19 18:48 | disposition home or self-care (01) ==
PROVIDERS: Emergency Provider Emergency Medicine; PCP Internal Medicine
DX: S61.411A Laceration without foreign body of right hand, initial encounter (principal); F17.210 Nicotine dependence, cigarettes, uncomplicated; Z79.899 Other long term (current) drug therapy; W25.XXXA Contact with sharp glass, initial encounter
CPT/HCPCS: 12001; 73120; 99283

== ENCOUNTER 2023-05-20 18:35 | Emergency (ER) | payer BC, SELFPAY ==
[2023-05-20 18:36] VITALS: PULSE 88; RESP 20; TEMP 35.7; O2SAT 100
[2023-05-20] MEDS: diphenhydrAMINE HCl INJ 50 MG/ML VIAL IV PUSH (18:43)
--- NOTE | 2023-05-20 18:43 | ED.GENADULT ---
HPI - General Adult General Chief complaint: Allergic Reaction Stated complaint: short of breath, jaw pain Time Seen by Provider: 05/20/23 18:40 History of Present Illness HPI narrative: 33yo man presents with difficulty breathing and swallowing, onset today, increasing in severity over the past several hours. Became severe shortly prior to arrival. Pt recently started on Haloperidol for PTSD. Also taking Cyclobenzaprine (Flexeril) at the same time. Related Data Home Medications Medication Instructions Recorded Confirmed cyclobenzaprine 5 mg tablet 5 mg PO TID PRN Spasms 04/19/23 05/20/23 diclofenac sodium 75 mg 75 mg PO BID PRN Pain 04/19/23 05/20/23 tablet,delayed release famotidine 40 mg tablet 40 mg PO DAILY 04/19/23 05/20/23 gabapentin 300 mg capsule 300 - 600 mg PO HS 04/19/23 05/20/23 Allergies Allergy/AdvReac Type Severity Reaction Status Date / Time aspirin Allergy Unknown Other Verified 05/20/23 18:39 celecoxib Allergy Unknown Other Verified 05/20/23 18:39 citalopram Allergy Unknown Other Verified 11/26/22 15:01 codeine Allergy Unknown Unknown Verified 11/26/22 15:01 NSAIDS (Non-Steroidal Allergy Unknown Other Verified 11/26/22 15:01 Anti-Inflamma tramadol Allergy Unknown Other Verified 11/26/22 15:01 Review of Systems Review of Systems: All systems reviewed & are unremarkable except as noted in HPI and below Constitutional: Constitutional: Denies chills and Denies fever(s) ENT: Denies dysphagia Cardiovascular: Cardiovascular: Denies chest pain Respiratory: Respiratory: Denies chest congestion and Reports dyspnea PMFSH Past Medical History Medical History Ankle injury History of kidney stones Hx pulmonary embolism Tobacco abuse Surgical History Surgical History History of ankle surgery Family History Family History Father Accident Social History Social History Social History: The patient lives with his and she is the durable power state highway police officer for healthcare. He has 3 biological children and 2 step children. The patient continues to smoke at least 10 cigarettes a day. He denies any alcohol marijuana or illicit drugs. Smoking packs per day: 0.5 Smoking cigarettes per day: 10.0 Years smoked: 20 Smoking pack-years: 10.00 Smoking status: Current every day smoker Tobacco type: cigarettes Additional smoking assessment comments: down from 2 and half packs per day Alcohol intake: current Drinks per week: 0 Alcohol use details: rare Substance use: current Substance use type: marijuana Other substance usage details: not much Last use: 06/22/2022 Lack of Transportation: No Lack of Food: Never True Current Housing: I Have Housing Concerned About Future Housing: No Difficulty Paying Gas/Electric Bills: No Difficulty Paying for Meds: No Currently Unemployed: No Education: Decline to Answer Difficulty w/ Childcare or Family Care: No Spiritual care concerns: No Exam Const: General: alert Nutritional Appearance: well nourished Other: acutely distressed Eyes: Conjunctivae: conjunctivae normal Resp: Effort & Inspection: labored Auscultation: clear to auscultation bilaterally Cardio: Rate: regular rate Rhythm: regular rhythm Heart sounds: no murmurs GI: Inspection: non-distended GI Palp: Yes Soft to palpation Skin: General skin exam: normal color, no jaundice and no pallor Medical Decision Making MDM Narrative Medical decision making narrative: rapid onset dyspnea, likely an acute dystonic reaction to recently started 1st gen antipsychotic (dopamine antagonist). No evidence of acute intrapulmonary disease, type 1 hypersensitivity, or other airway obstruction. Critical Care Time Critical C
[2023-05-20] MEDS: BENZTROPINE MESYLATE 1 MG TABLET 2 MG PO (18:47)
[2023-05-20 19:00] VITALS: BP 139/97
--- NOTE | 2023-05-20 19:14 | PC.NURSE ---
PT SX ARE IMPROVING AT THIS TIME. WILL CONTINUE TO MONITOR.
--- NOTE | 2023-05-20 19:23 | ED.GENADULT ---
HPI - General Adult General Chief complaint: Allergic Reaction Stated complaint: short of breath, jaw pain Time Seen by Provider: 05/20/23 18:40 Related Data Home Medications Medication Instructions Recorded Confirmed cyclobenzaprine 5 mg tablet 5 mg PO TID PRN Spasms 04/19/23 05/20/23 diclofenac sodium 75 mg 75 mg PO BID PRN Pain 04/19/23 05/20/23 tablet,delayed release famotidine 40 mg tablet 40 mg PO DAILY 04/19/23 05/20/23 gabapentin 300 mg capsule 300 - 600 mg PO HS 04/19/23 05/20/23 Allergies Allergy/AdvReac Type Severity Reaction Status Date / Time aspirin Allergy Unknown Other Verified 05/20/23 18:39 celecoxib Allergy Unknown Other Verified 05/20/23 18:39 citalopram Allergy Unknown Other Verified 11/26/22 15:01 codeine Allergy Unknown Unknown Verified 11/26/22 15:01 NSAIDS (Non-Steroidal Allergy Unknown Other Verified 11/26/22 15:01 Anti-Inflamma tramadol Allergy Unknown Other Verified 11/26/22 15:01 haloperidol [From Haldol] AdvReac Other Verified 05/20/23 19:23 [facility] Past Medical History Medical History Ankle injury History of kidney stones Hx pulmonary embolism Tobacco abuse Surgical History Surgical History History of ankle surgery Family History Family History Father Accident Social History Social History Social History: The patient lives with his and she is the durable power assistant district attorney for healthcare. He has 3 biological children and 2 step children. The patient continues to smoke at least 10 cigarettes a day. He denies any alcohol marijuana or illicit drugs. Smoking packs per day: 0.5 Smoking cigarettes per day: 10.0 Years smoked: 20 Smoking pack-years: 10.00 Smoking status: Current every day smoker Tobacco type: cigarettes Additional smoking assessment comments: down from 2 and half packs per day Alcohol intake: current Drinks per week: 0 Alcohol use details: rare Substance use: current Substance use type: marijuana Other substance usage details: not much Last use: 06/22/2022 Lack of Transportation: No Lack of Food: Never True Current Housing: I Have Housing Concerned About Future Housing: No Difficulty Paying Gas/Electric Bills: No Difficulty Paying for Meds: No Currently Unemployed: No Education: Decline to Answer Difficulty w/ Childcare or Family Care: No Spiritual care concerns: No Course Vital Signs Vital signs: Vital Signs Oxygen Delivery Room Air 05/20/23 18:35 Temperature 35.7 C L 05/20/23 18:36 Pulse Rate 88 05/20/23 18:36 Respiratory Rate 20 05/20/23 18:36 Blood Pressure 139/97 H 05/20/23 19:00 Pulse Oximetry 100 05/20/23 18:36 Oxygen Delivery Room Air 05/20/23 18:36 Medical Decision Making Vital Signs Vital Signs: Vital Signs Oxygen Delivery Room Air 05/20/23 18:35 Temperature 35.7 C L 05/20/23 18:36 Pulse Rate 88 05/20/23 18:36 Respiratory Rate 20 05/20/23 18:36 Blood Pressure 139/97 H 05/20/23 19:00 Pulse Oximetry 100 05/20/23 18:36 Oxygen Delivery Room Air 05/20/23 18:36 Discharge Plan Discharge Clinical Impression: Acute dystonic reaction due to drugs, Acute respiratory distress Patient Disposition: Home, Self-Care Condition: Improved Additional Instructions: Your symptoms were caused by severe muscle spasm of the throat muscles which can be caused by medications like Haldol and Thorazine. The antidote is anti-histamine medication, such as Benztropine (Cogentin) and Diphenhydramine (Benadryl). You can discontinue your Haldol. Instead, change to a medication called Ziprasidone (Geodon) and also start taking the medication Benztropine (Cogentin) once each day. Follow-up with your regular doctor and let them kn
--- NOTE | 2023-05-20 19:33 | PC.NURSE ---
Upon assessment, pt is A&O x3 sitting in bed and able to talk in complete sentences, RR even and nonlabored, VSS. Pt reports feeling much better and ready to go home to bed. D/C instruction given.
[2023-05-20 19:34] VITALS: BP 132/82; PULSE 62; RESP 18; TEMP 36.7; O2SAT 99
== END 2023-05-20 19:40 | disposition home or self-care (01) ==
PROVIDERS: Emergency Provider Emergency Medicine; PCP Internal Medicine
DX: G24.02 Drug induced acute dystonia (principal); T43.505A Adverse effect of unspecified antipsychotics and neuroleptics, initial encounter; F17.210 Nicotine dependence, cigarettes, uncomplicated; Z79.899 Other long term (current) drug therapy; Z86.711 Personal history of pulmonary embolism
CPT/HCPCS: 96374; 99284; A9270; J1200

== ENCOUNTER 2023-07-21 08:25 | Emergency (ER) | payer BC, SELFPAY ==
--- NOTE | ~2023-07-21 | CT_ITS ---
EXAMINATION: CT abdomen pelvis wo con DATE: 07/21/2023 09:09 INDICATION: Bilateral flank pain. Left groin pain. TECHNIQUE: Computed tomography (CT) of the abdomen and pelvis was performed without intravenous contr ast. Automated exposure control and iterative reconstruction technique were employed. The dose-length product was 202.92 mGy-cm. COMPARISON: CT abdomen and pelvis 06/25/2022 FINDINGS: The visualized portions of the lung bases are clear without pneumonia or pleural effusion. The heart size is normal. No pericardial effusion. The liver, gallbladder, spleen, pancreas, and adre nal glands are normal. There is a 2 mm stone in right kidney. There is a 1 mm stone in left kidney. T he ureters are normal. There are no dilated loops of bowel. The appendix is normal. There are no path ologically enlarged lymph nodes. There is no free intraperitoneal fluid. There is moderate lower lumb ar spondylosis. IMPRESSION: 1. Small bilateral nonobstructing kidney stones. Reviewed, dictated and finalized at location A. N MACHINE OPERATOR
[2023-07-21 08:25] VITALS: PULSE 96; RESP 20; TEMP 36.6; O2SAT 100
--- NOTE | 2023-07-21 08:36 | ED.ABDPAIN ---
HPI - Abdominal Pain General Chief Complaint: Urogenital-Male Stated Complaint: abd pain Time Seen by Provider: 07/21/23 08:35 History of Present Illness HPI narrative: 33-year-old male patient is brought in by the family with complaints of pain in the left flank area that started about 3 days ago and today has bowel to the front of the lower abdomen on the left side. Patient states that the pain is severe today. He rates it 10/10. He states the pain is involving the entire left back and the front of his abdomen. He has had no nausea vomiting or diarrhea. He reports no significant urinary symptoms but states that he cannot urinate freely. Apparently patient has history of kidney stones and has had similar episodes in the past. Patient post no fever or chills. He does smoke half pack of cigarettes and is marijuana. . Denies any recreational drugs or alcohol. Patient states that he is unable to take aspirin because it causes bleeding but is able to take other NSAIDs like ibuprofen and is currently on diclofenac in addition to that the patient is also apparently taking Ziprasidone and gabapentin as well as cyclobenzaprine and benztropine Related Data Home Medications Medication Instructions Recorded Confirmed cyclobenzaprine 5 mg tablet 5 mg PO TID PRN Spasms 04/19/23 07/21/23 diclofenac sodium 75 mg 75 mg PO BID PRN Pain 04/19/23 07/21/23 tablet,delayed release famotidine 40 mg tablet 40 mg PO DAILY 04/19/23 07/21/23 gabapentin 300 mg capsule 300 - 600 mg PO HS 04/19/23 07/21/23 Allergies Allergy/AdvReac Type Severity Reaction Status Date / Time aspirin Allergy Unknown Other Verified 05/20/23 18:39 celecoxib Allergy Unknown Other Verified 05/20/23 18:39 citalopram Allergy Unknown Other Verified 11/26/22 15:01 codeine Allergy Unknown Unknown Verified 11/26/22 15:01 NSAIDS (Non-Steroidal Allergy Unknown Other Verified 11/26/22 15:01 Anti-Inflamma tramadol Allergy Unknown Other Verified 11/26/22 15:01 haloperidol [From Haldol] AdvReac Other Verified 05/20/23 19:23 Review of Systems Review of Systems: All systems reviewed & are unremarkable except as noted in HPI and below PMFSH Past Medical History Medical History Ankle injury History of kidney stones Hx pulmonary embolism Tobacco abuse Surgical History Surgical History History of ankle surgery Family History Family History Father Accident Social History Social History Social History: The patient lives with his and she is the durable power assistant county attorney for healthcare. He has 3 biological children and 2 step children. The patient continues to smoke at least 10 cigarettes a day. He denies any alcohol marijuana or illicit drugs. Smoking packs per day: 0.5 Smoking cigarettes per day: 10.0 Years smoked: 20 Smoking pack-years: 10.00 Smoking status: Current every day smoker Tobacco type: cigarettes Additional smoking assessment comments: down from 2 and half packs per day Alcohol intake: current Drinks per week: 0 Alcohol use details: rare Substance use: current Substance use type: marijuana Other substance usage details: not much Last use: 06/22/2022 Lack of Transportation: No Lack of Food: Never True Current Housing: I Have Housing Concerned About Future Housing: No Difficulty Paying Gas/Electric Bills: No Difficulty Paying for Meds: No Currently Unemployed: No Education: Decline to Answer Difficulty w/ Childcare or Family Care: No Spiritual care concerns: No Exam Narrative: Alert male patient who appears in no acute distress but is in significant pain and extremely anxious. vital signs are noted to be stable. Patient is afebrile. HEENT: normocephalic. Patient is partially edentulous
[2023-07-21] MEDS: SODIUM CHLORIDE 0.9% IV 1,000 ML 999 ML IV CONT (08:50)
[2023-07-21] MEDS: KETOROLAC 30 MG/ML VIAL (*BKC) IV PUSH (08:50)
[2023-07-21] MEDS: ONDANSETRON INJ 4 MG/2 ML VIAL IV PUSH (08:50)
[2023-07-21 09:02] LABS: Hematocrit 41.5 % (40.0-54.0); Hemoglobin 14.7 g/dL (14.0-18.0); Mean Corpuscular HGB Conc 35.4 g/dL (32.0-36.0); Mean Corpuscular Hemoglobin 31.6 pg (27.0-31.0); Mean Corpuscular Volume 89.2 fL (78.0-102.0); Mean Platelet Volume 9.5 fl (8.7-11.0); Platelet Count Result 172 K/mm3 (150-420); Red Blood Count 4.65 M/mm3 (4.70-6.10); Red Cell Distribution Width 11.4 % (11.6-14.4); White Blood Count 3.4 K/mm3 (4.8-10.8)
[2023-07-21 09:16] LABS: Alanine Aminotransferase 45 U/L (16-63); Albumin Level 3.4 g/dL (3.4-5.0); Alkaline Phosphatase 89 U/L (46-116); Anion Gap 7 mmol/L (8-16); Aspartate Amino Transferase 20 U/L (15-37); Bilirubin,Total 0.3 mg/dL (0.00-1.00); Blood Urea Nitrogen 7 mg/dL (7-18); Carbon Dioxide 30 mmol/L (21-32); Chloride 101 mmol/L (98-108); Estimated Glomerular Filt Rate > 60; Glucose 94 mg/dL (70-99); Osmolality Calculated 284 mOsm/kg (285-295); Potassium 3.5 mmol/L (3.5-5.1); Sodium 138 mmol/L (136-145)
[2023-07-21 09:31] LABS: Total Cells Counted 100
[2023-07-21 09:32] LABS: Atypical Lymphocytes Present; Band Neutrophils Percent 0 % (0-6); Eosinophils Percent Manual 3 % (1-6); Large Platelets Present; Lymphocytes Absolute Manual 0.68 K/mm3 (1.1-4.5); Lymphocytes Percent Manual 20 % (18-44); Monocytes Percent Manual 9 % (3-9); Neutrophils Absolute Manual 2.31 K/mm3 (1.3-6.7); Neutrophils Percent Manual 68 % (46-73); Platelet Estimate Adequate (Adequate); Schistocytes None Seen (NORMAL)
--- NOTE | 2023-07-21 09:39 | PC.NURSE ---
awaiting lab and ct results. pt resting per cot. eyes closed, calmly. call jose in reach. female in room with pt.
[2023-07-21 10:14] LABS: Appearance Urine Clear (Clear); Bilirubin Urine Negative (Negative); Blood Urine Negative (Negative); Color Urine Yellow (Yellow); Glucose Urine UA Negative (Negative); Ketones Urine Negative (Negative); Leukocyte Esterase Ur Negative LEU/UL (Negative); Nitrate Urine Negative (Negative); Protein Urine Trace (Negative); pH Urine 7.5 (5.0-8.0)
[2023-07-21 10:20] LABS: Add Urine Microscopic? YES; Amorphous Sediment Urine Few; Mucus Urine Heavy /lpf; RBC Urine 0-2 /hpf (0-2)
[2023-07-21 10:42] VITALS: BP 140/107; PULSE 87; RESP 20; TEMP 36.8; O2SAT 98
[2023-07-21 10:50] VITALS: BP 137/93
--- NOTE | 2023-07-21 10:51 | PC.NURSE ---
informed pt about elevated blood pressure. pt not concerned. informed to strain urine. pt refused strainer
== END 2023-07-21 10:46 | disposition home or self-care (01) ==
PROVIDERS: Emergency Provider Emergency Medicine; PCP Internal Medicine
DX: R10.30 Lower abdominal pain, unspecified (principal); F17.210 Nicotine dependence, cigarettes, uncomplicated; Z79.899 Other long term (current) drug therapy
CPT/HCPCS: 36415; 74176; 80053; 81001; 85025; 96361; 96374; 96375; 99284; J1885; J2405; J7030

== ENCOUNTER 2023-12-02 08:46 | Outpatient (CLI) | payer BC, SELFPAY ==
[2023-12-02 10:13] LABS: Influenza A QL RT-PCR Negative (Negative); Influenza B QL RT-PCR Negative (Negative); SARS-CoV-2 RNA PCR Negative (Negative)
[2023-12-02 10:23] LABS: Strep Group A RT-PCR NOT DETECTED (Negative)
== END 2023-12-02 08:47 | disposition home or self-care (01) ==
LOC: CHSLAB 08:47
PROVIDERS: PCP Nurse Practitioner Family; Visit Provider Nurse Practitioner Family
DX: R05.9 Cough, unspecified (principal); Z20.822 Contact with and (suspected) exposure to COVID-19
CPT/HCPCS: 87636; 87651

== ENCOUNTER 2024-03-20 11:24 | Emergency (ER) | payer SELFPAY ==
--- NOTE | ~2024-03-20 | XR_ITS ---
EXAMINATION: XR lumbar spine 2-3V DATE: 03/20/2024 11:59 INDICATION: Low back pain post fall TECHNIQUE: Anteroposterior and lateral views of the lumbar spine, and cone-down lateral view of the l umbosacral junction were obtained. COMPARISON: 08/08/2016 FINDINGS: Alignment is normal. Vertebral body heights are normal. Mild to moderate disc height loss at L5-S1. B one island at the right iliac wing. A few phleboliths in the pelvis. Bowel gas pattern is unremarkabl e. The visualized posterior lung bases are clear with no pleural effusion. IMPRESSION: 1. Mild to moderate disc height loss at L5-S1. Otherwise unremarkable lumbar spine. Reviewed, dictated and finalized at location A. IMPRESSION: 1. Mild to moderate disc height loss at L5-S1. Otherwise unremarkable lumbar sp ine.
[2024-03-20 11:24] VITALS: BP 164/143; PULSE 84; RESP 30; TEMP 36.6; O2SAT 96
--- NOTE | 2024-03-20 11:36 | ED.BACK ---
HPI - Back Pain/Injury General Chief Complaint: Back Pain/Injury Stated Complaint: back pain Source: patient Mode of arrival: EMS Limitations: no limitations History of Present Illness HPI Narrative: patient is a 33-year-old male with lower back pain causing severe distress. He fell yesterday while walking and landed on his back. He has been in severe pain since yesterday. He has a seizure disorder that he has not had a seizure in 2 years. This is from a posttraumatic brain injury during war and . He proceeded to have a seizure for a few seconds at home and then was unresponsive during the event. He is back to baseline in the emergency room with having back pain. Patient chooses not to be on seizure medications regularly. MD elicited complaint: back pain Pertinent past history: recent trauma Onset (ago): day(s) (2) Timing: constant Severity: severe Pain scale (0-10): 9 Similar Symptoms Previously: No Quality: sharp, spasming and throbbing Location: lumbar spine Radiation: none Exacerbating factors: movement and sitting upright Relieving factors: immobilization Context: fall and trauma Associated symptoms: denies other symptoms Work related injury: No Related Data Home Medications Medication Instructions Recorded Confirmed cyclobenzaprine 5 mg tablet 5 mg PO TID PRN Spasms 04/19/23 03/20/24 meloxicam 15 mg tablet 15 mg PO DAILY 03/20/24 03/20/24 Allergies Allergy/AdvReac Type Severity Reaction Status Date / Time aspirin Allergy Unknown Other Verified 03/20/24 11:28 celecoxib Allergy Unknown Other Verified 03/20/24 11:28 citalopram Allergy Unknown Other Verified 03/20/24 11:28 codeine Allergy Unknown Unknown Verified 03/20/24 11:28 NSAIDS (Non-Steroidal Allergy Unknown Other Verified 03/20/24 11:28 Anti-Inflamma tramadol Allergy Unknown Other Verified 03/20/24 11:28 haloperidol [From Haldol] AdvReac Other Verified 03/20/24 11:28 Review of Systems Review of Systems: All systems reviewed & are unremarkable except as noted in HPI and below Constitutional: Constitutional: Reports no additional constitutional complaints Eyes: Eyes: Reports no additional eye complaints ENT: Reports system reviewed and no additional complaints, except as documented Cardiovascular: Cardiovascular: Reports no additional cardiovascular complaints Respiratory: Respiratory: Reports no additional respiratory complaints Gastrointestinal: Gastrointestinal: Reports no additional gastrointestinal complaints Genitourinary: Genitourinary: Reports no additional male genitourinary complaints Musculoskeletal: Musculoskeletal: Reports no additional musculoskeletal complaints Integumentary/Breasts: Skin/Breast: Reports system reviewed and no additional complaints, except as docu Neurologic: Reports system reviewed and no additional complaints, except as documented Psychiatric: Psychiatric: Reports no additional psychiatric complaints Endocrine: Endocrine: Reports no additional endocrine complaints Hematologic/Lymphatic: Hematologic/Lymphatic: Reports no additional hematologic/lymphatic complaints Allergic/Immunologic: Allergic/Immunologic: Reports no additional allergic/immunologic complaints PMFSH Past Medical History Medical History Ankle injury History of kidney stones Hx pulmonary embolism Tobacco abuse Surgical History Surgical History History of ankle surgery Family History Family History Father Accident Social History Social History Social History: The patient lives with his and she is the durable power sports attorney for healthcare. He has 3 biological children and 2 step children. The patient continues to smoke at least 10 cigarettes a day. He denies any alcohol marijuana or illicit drug
--- NOTE | 2024-03-20 11:42 | PC.NURSE ---
covid test sent to lab
[2024-03-20] MEDS: methylPREDNISolone SOD SUCC 125 MG VIAL IV PUSH (12:09)
[2024-03-20] MEDS: MORPHINE SULFATE (*CRX) 2 MG/ML INJ 4 MG IV PUSH (12:09)
[2024-03-20 12:12] LABS: SARS-CoV-2 RNA PCR Positive (Negative)
[2024-03-20 12:15] LABS: Influenza A QL RT-PCR Negative (Negative); Influenza B QL RT-PCR Negative (Negative); RSV RNA, RT-PCR Negative (Negative)
[2024-03-20 12:22] LABS: Basophils Absolute Auto 0.02 K/mm3 (0.00-0.10); Basophils Percent Auto 0.3 % (0.0-1.0); Eosinophils Absolute Auto 0.17 K/mm3 (0.02-0.50); Eosinophils Percent Auto 2.4 % (1.0-6.0); Hematocrit 44.6 % (40.0-54.0); Hemoglobin 16.1 g/dL (14.0-18.0); Immature Granulocyte Absolute 0.01 K/mm3 (0.00-0.00); Immature Granulocyte Percent A 0.1 % (0.0-0.0); Lymphocytes Absolute Auto 0.85 K/mm3 (1.10-4.50); Lymphocytes Percent Auto 11.9 % (18.0-42.0); Mean Corpuscular HGB Conc 36.1 g/dL (32-36); Mean Corpuscular Hemoglobin 31.8 pg (27.0-31.0); Mean Platelet Volume 9.4 fl (8.7-11.0); Monocytes Absolute Auto 0.98 K/mm3 (0.10-0.90); Monocytes Percent Auto 13.7 % (2.0-11.0); Neutrophils Absolute Auto 5.12 K/mm3 (1.70-7.20); Neutrophils Percent Auto 71.6 % (50.0-70.0); Platelet Count Result 190 K/mm3 (150-420); Red Blood Count 5.07 M/mm3 (4.70-6.10); Red Cell Distribution Width 11.7 % (11.6-14.4); White Blood Count 7.2 K/mm3 (4.8-10.8)
--- NOTE | 2024-03-20 12:30 | PC.NURSE ---
Pt resting comfortably. at bedside.
[2024-03-20 12:38] LABS: Alanine Aminotransferase 25 U/L (16-63); Albumin Level 3.9 g/dL (3.4-5.0); Alkaline Phosphatase 98 U/L (46-116); Anion Gap 7 mmol/L (4-12); Aspartate Amino Transferase 16 U/L (15-37); Bilirubin,Total 0.4 mg/dL (0.00-1.00); Blood Urea Nitrogen 9 mg/dL (7-18); Calcium 9.2 mg/dL (8.5-10.1); Carbon Dioxide 31 mmol/L (21-32); Chloride 98 mmol/L (98-108); Estimated CRCL calculation 103 ml/min; Estimated Glomerular Filt Rate > 60; Ethanol < 3 mg/dL (0-6); Glucose 98 mg/dL (70-99); Osmolality Calculated 280 mOsm/kg (285-295); Potassium 3.7 mmol/L (3.5-5.1); Sodium 136 mmol/L (136-145); Total Protein 6.9 g/dL (6.4-8.2)
[2024-03-20] MEDS: ORPHENADRINE CITRATE 30 MG/ML 2 ML VIAL 60 MG IM (13:25)
[2024-03-20 13:28] LABS: Amphetamine Screen Urine Positive (Negative); Barbiturate Screen Urine Negative (Negative); Benzodiazepines Screen Urine Negative (Negative); Cannabinoid Screen Urine Positive (Negative); Cocaine Screen Urine Negative (Negative); Methadone Screen Urine Negative (Negative); Opiate Screen Urine Positive (Negative); Phencyclidine Screen Urine Negative (Negative)
--- NOTE | 2024-03-20 13:40 | PC.NURSE ---
Pt has no complaints at this time. Resting in stretcher. at bedside.
[2024-03-20 13:52] VITALS: BP 136/86; PULSE 70; RESP 18; TEMP 36.7; O2SAT 98
== END 2024-03-20 13:56 | disposition home or self-care (01) ==
PROVIDERS: Emergency Provider Emergency Medicine; PCP Internal Medicine
DX: U07.1 COVID-19 (principal); M54.16 Radiculopathy, lumbar region; F15.10 Other stimulant abuse, uncomplicated; F17.210 Nicotine dependence, cigarettes, uncomplicated; Z79.1 Long term (current) use of non-steroidal anti-inflammatories (NSAID); W19.XXXA Unspecified fall, initial encounter
CPT/HCPCS: 36415; 72100; 80053; 80307; 85025; 87637; 96372; 96374; 96375; 99284; J2270; J2360; J2919

== ENCOUNTER 2024-04-02 10:04 | Emergency (ER) | payer SELFPAY ==
[2024-04-02 10:05] VITALS: BP 203/145; PULSE 102; RESP 20; TEMP 36.3; O2SAT 98
--- NOTE | 2024-04-02 10:17 | ED.WOUNDLAC ---
HPI - Wound/Laceration General Chief Complaint: Wound/Laceration Stated Complaint: finger injury Time Seen by Provider: 04/02/24 10:17 Source: patient and family Mode of arrival: ambulatory Limitations: no limitations History of Present Illness HPI narrative: this is a 33-year-old male presents with well-approximated cut to the left index finger that occurred earlier this morning while using a razor blade there is currently no bleeding no numbness or tingling has good range of motion in his finger. Onset (ago): hour(s) Extremity Location: Left: hand ( Laceration left index finger) Place: home Patient tetanus UTD: Yes Context: accidental Related Data Home Medications Medication Instructions Recorded Confirmed cyclobenzaprine 5 mg tablet 5 mg PO TID PRN Spasms 04/19/23 03/20/24 meloxicam 15 mg tablet 15 mg PO DAILY 03/20/24 03/20/24 Allergies Allergy/AdvReac Type Severity Reaction Status Date / Time aspirin Allergy Unknown Other Verified 03/20/24 11:28 celecoxib Allergy Unknown Other Verified 03/20/24 11:28 citalopram Allergy Unknown Other Verified 03/20/24 11:28 codeine Allergy Unknown Unknown Verified 03/20/24 11:28 NSAIDS (Non-Steroidal Allergy Unknown Other Verified 03/20/24 11:28 Anti-Inflamma tramadol Allergy Unknown Other Verified 03/20/24 11:28 haloperidol [From Haldol] AdvReac Other Verified 03/20/24 11:28 Review of Systems Review of Systems: All systems reviewed & are unremarkable except as noted in HPI and below PMFSH Past Medical History Medical History Ankle injury History of kidney stones Hx pulmonary embolism Tobacco abuse Surgical History Surgical History History of ankle surgery Family History Family History Father Accident Social History Social History Social History: The patient lives with his and she is the durable power patent attorney for healthcare. He has 3 biological children and 2 step children. The patient continues to smoke at least 10 cigarettes a day. He denies any alcohol marijuana or illicit drugs. Smoking packs per day: 0.5 Smoking cigarettes per day: 10.0 Years smoked: 20 Smoking pack-years: 10.00 Smoking status: Current every day smoker Tobacco type: cigarettes Additional smoking assessment comments: down from 2 and half packs per day Alcohol intake: current Drinks per week: 0 Alcohol use details: rare Substance use: current Substance use type: marijuana Other substance usage details: not much Last use: 06/22/2022 Lack of Transportation: No Lack of Food: Never True Current Housing: I Have Housing Concerned About Future Housing: No Difficulty Paying Gas/Electric Bills: No Difficulty Paying for Meds: No Currently Unemployed: No Education: Decline to Answer Difficulty w/ Childcare or Family Care: No Spiritual care concerns: No Exam Const: General: healthy appearing Nutritional Appearance: well nourished Orientation/consciousness: patient oriented x3 Limitations: no limitations Chest: Chest palpation & inspection: normal inspection of the chest Resp: Effort & Inspection: normal respiratory effort Auscultation: clear to auscultation bilaterally Cardio: Rate: regular rate Rhythm: regular rhythm GI: GI Palp: Yes Soft to palpation Auscultation: normal bowel sounds Skin: Wounds: wounds noted Other: 2cm in length laceration palmar surface of his left index finger non gaping Extrem: General: normal to inspection Course Course Emergency Course: Dermabond applied the area was irrigated and explored for any debris. Vital Signs Vital signs: Vital Signs Temperature 36.3 C L 04/02/24 10:05 Pulse Rate 102 H 04/02/24 10:05 Respiratory Rate 20 04/02/24 10:05 Blood Pr
[2024-04-02] MEDS: cloNIDine HCL 0.1 MG TABLET 0.2 MG PO (10:38)
[2024-04-02 10:43] VITALS: BP 201/98; PULSE 88; RESP 20; TEMP 36.7; O2SAT 97
== END 2024-04-02 10:43 | disposition home or self-care (01) ==
PROVIDERS: Emergency Provider Emergency Medicine; PCP Internal Medicine
DX: S61.211A Laceration without foreign body of left index finger without damage to nail, initial encounter (principal); F17.210 Nicotine dependence, cigarettes, uncomplicated; W27.8XXA Contact with other nonpowered hand tool, initial encounter
CPT/HCPCS: 12001; 99283; A9270

== ENCOUNTER 2024-09-01 14:53 | Emergency (ER) | payer SELFPAY ==
--- NOTE | ~2024-09-01 | CT_ITS ---
EXAMINATION: CT abdomen pelvis wo con DATE: 09/01/2024 15:13 INDICATION: Left flank pain. TECHNIQUE: Computed tomography (CT) of the abdomen and pelvis was performed without intravenous contr ast. Automated exposure control and iterative reconstruction technique were employed. The dose-length product was 202.70 mGy-cm. COMPARISON: 07/21/2023 FINDINGS: Lung bases are clear. Heart size normal. No pericardial or pleural effusion. Liver, gallbladder, sple en, pancreas and bilateral adrenal glands are normal. There are a few tiny hypodense foci in both kid neys the largest measuring 2 mm in the left kidney consistent with nonobstructing nephrolithiasis.. N o ureteral stones or hydronephrosis. Bladder is normal. Bowels including the appendix are normal. No free intraperitoneal gas or fluid. No pathologically enlarged abdominal or pelvic lymphadenopathy. St raightening of the normal lumbar lordosis. Moderate spondylosis at L5-S1. IMPRESSION: 1. . A few tiny bilateral nonobstructing renal stones, the largest at the lower pole of the left kidn ey measuring 2 mm. No ureteral stones or hydronephrosis. Reviewed, dictated and finalized at location A. HER IMPRESSION: 1. . A few tiny bilateral nonobstructing renal stones, the largest at the lower pole of the left kidney measuring 2 mm. No ureteral stones or hydronephrosis.
[2024-09-01 14:57] VITALS: BP 178/137; PULSE 107; RESP 18; TEMP 37.5; O2SAT 98
--- NOTE | 2024-09-01 15:05 | ED_ITS ---
HPI - General Adult General Chief complaint: Back Pain/Injury Stated complaint: FLANK PAIN Time Seen by Provider: 09/01/24 14:59 History of Present Illness HPI narrative: 34 YEARS OLD WHITE MALE CAME TO THE ED BY PRIVATE CAR COMPLAINING OF STOPPED URINATING SUDDENLY SUBSEQUENTLY LEFT-SIDED FLANK PAIN ASSOCIATED WITH NAUSEA. HISTORY OF KIDNEY STONE. HE DENIES ANY FEVER O Related Data Home Medications ?Medication ?Instructions ?Recorded ?Confirmed ?Last Taken ?Type cyclobenzaprine 5 mg tablet 5 mg PO TID PRN Spasms 04/19/23 04/02/24 Unknown History Allergies Allergy/AdvReac Type Severity Reaction Status Date / Time aspirin Allergy Unknown Other Verified 09/01/24 15:07 celecoxib Allergy Unknown Other Verified 09/01/24 15:07 citalopram Allergy Unknown Other Verified 09/01/24 15:07 codeine Allergy Unknown Unknown Verified 09/01/24 15:07 NSAIDS (Non-Steroidal Allergy Unknown Other Verified 09/01/24 15:07 Anti-Inflamma tramadol Allergy Unknown Other Verified 09/01/24 15:07 haloperidol (From Haldol) AdvReac Other Verified 09/01/24 15:07 Review of Systems 2 Review of Systems: All systems reviewed & are unremarkable except as noted in HPI and below PMFSH Past Medical History Medical History Hx pulmonary embolism Tobacco abuse History of kidney stones Ankle injury Surgical History Surgical History History of ankle surgery Family History Family History Father Accident Social History Social History Social History: The patient lives with his and she is the durable power finance attorney for healthcare. He has 3 biological children and 2 step children. The patient continues to smoke at least 10 cigarettes a day. He denies any alcohol marijuana or illicit drugs. Smoking packs per day: 0.5 Smoking cigarettes per day: 10.0 Years smoked: 20 Smoking pack-years: 10.00 Smoking status: Current every day smoker Tobacco type: cigarettes Additional smoking assessment comments: down from 2 and half packs per day Alcohol intake: current Drinks per week: 0 Alcohol use details: rare Substance use: current Substance use type: marijuana Other substance usage details: not much Last use: 06/22/2022 Lack of Transportation: No Lack of Food: Never True Current Housing: I Have Housing Concerned About Future Housing: No Difficulty Paying Gas/Electric Bills: No Difficulty Paying for Meds: No Currently Unemployed: No Education: Decline to Answer Difficulty w/ Childcare or Family Care: No Spiritual care concerns: No Exam 2 Narrative: GENERAL APPEARANCE: WELL-DEVELOPED, WELL-NOURISHED SKIN: NORMAL COLOR HEAD: NORMOCEPHALIC, NONTRAUMATIC EYES: CLEAR CONJUNCTIVA ENT: OROPHARYNX NORMAL, EARS NORMAL, NOSE NORMAL NECK: SUPPLE, NONTENDER CHEST AND RESPIRATORY: AIRWAY PATENT, NO RESPIRATORY DISTRESS, NO ACCESSORY MUSCLE USE HEART: REGULAR RATE/RHYTHM ABDOMEN: SOFT, NONTENDER, NO ORGANOMEGALY, QUIET BOWEL SOUNDS, SEVERE TENDERNESS LEFT FLANK AREA, NO BRUISES OR SWELLING OR RASH MUSCULOSKELETAL: NORMAL RANGE OF MOTION, NONTENDER BACK NEUROLOGIC: ALERT AND ORIENTED ?3, EXPERIENTIAL THERAPIST IS NORMAL TESTED, NO GROSS MOTOR DEFICIT Course Vital Signs Vital signs: Vital Signs Temperature 37.5 C 09/01/24 14:57 Pulse Rate 107 H 09/01/24 14:57 Respiratory Rate 18 09/01/24 14:57 Blood Pressure 178/137 H 09/01/24 14:57 Pulse Oximetry 98 09/01/24 14:57 Oxygen Delivery Room Air 09/01/24 14:57 Temperature 37.5 C 09/01/24 14:57 Pulse Rate 95 09/01/24 16:30 Respiratory Rate 16 09/01/24 16:30 Blood Pressure 136/93 H 09/01/24 16:30 Pulse Oximetry 98 09/01/24 16:30 Oxygen Delivery Room Air 09/01/24 16:30 Medical Decision Making [facility] Narrative Medical decision making narrative: PATIENT PRESENTS WITH LEFT FLANK PAIN AND DIFFICULTY URINATING PRIOR TO ARRIVAL VITAL SIGNS SHOWING BLOOD PRESSURE 178/137, HEART RATE 107 PHYSICAL EXAMINATION SHOWING RESTLESS PATIENT WITH TENDERNESS LEFT FLANK AREA DIFFERENTIAL DIAGNOSIS INCLUDE KIDNEY STONE, URINARY TRACT INFECTION A URINE RETENTION, drug withdrawal. Patient had history of drug abuse. BLOOD WORKUP TODAY INCLUDES CBC, CMP, SHOWED URINALYSIS SHOWEDNo acute abnormalities CT ABDOMEN AND PELVIS WITHOUT CONTRAST SHOWED NO ACUTE ABNORMALITIES Patient's symptom resolved after IV fluid, Zofran, Toradol, Benadryl and Reglan. At the time of discharge patient is asymptomatic. The pt was discharged to home.the pt,s condition upon discharge was fair,education was provided to the pt in reference to the final impression,discharge study results,treatment,prognosis and need for follow up . Vital Signs Vital Signs: Vital Signs Temperature 37.5 C 09/01/24 14:57 Pulse Rate 107 H 09/01/24 14:57 Respiratory Rate 18 09/01/24 14:57 Blood Pressure 178/137 H 09/01/24 14:57 Pulse Oximetry 98 09/01/24 14:57 Oxygen Delivery Room Air 09/01/24 14:57 Temperature 37.5 C 09/01/24 14:57 Pulse Rate 95 09/01/24 16:30 Respiratory Rate 16 09/01/24 16:30 Blood Pressure 136/93 H 09/01/24 16:30 Pulse Oximetry 98 09/01/24 16:30 Oxygen Delivery Room Air 09/01/24 16:30 Lab Data 09/01/24 15:16 09/01/24 15:16 Labs: Lab Results 09/01/24 09/01/24 Range/Units 15:06 15:16 WBC 6.0 (4.8-10.8) K/mm3 RBC 4.64 L (4.70-6.10) M/mm3 Hgb 14.1 (14.0-18.0) g/dL Hct 41.3 (40.0-54.0) % MCV 89.0 (78.0-102.0) fL MCH 30.4 (27.0-31.0) pg MCHC 34.1 (32-36) g/dL RDW 12.3 (11.6-14.4) % Plt Count 208 (150-420) K/mm3 MPV 9.6 (8.7-11.0) fl Immature Gran % (Auto) 0.3 H (0.0-0.0) % Neut % (Auto) 82.6 H (50.0-70.0) % Lymph % (Auto) 4.3 L (18.0-42.0) % [place] % (Auto) 10.1 (2.0-11.0) % Eos % (Auto) 2.2 (1.0-6.0) % Baso % (Auto) 0.5 (0.0-1.0) % Lymph # (Auto) 0.26 L (1.10-4.50) K/mm3 [place] # (Auto) 0.61 (0.10-0.90) K/mm3 Eos # (Auto) 0.13 (0.02-0.50) K/mm3 Baso # (Auto) 0.03 (0.00-0.10) K/mm3 Abs Immat Gran (auto) 0.02 H (0.00-0.00) K/mm3 Absolute Neuts (auto) 4.97 (1.70-7.20) K/mm3 Absolute Nucleated RBC 0.00 (0.00-0.00) K/mm3 Nucleated RBC % 0.0 (0-0.0) % Sodium 141 (136-145) mmol/L Potassium 4.1 (3.5-5.1) mmol/L Chloride 103 (98-108) mmol/L Carbon Dioxide 30 (21-32) mmol/L Anion Gap 8 (4-12) mmol/L BUN 12 (7-18) mg/dL Creatinine 1.11 (0.70-1.30) mg/dL Estim Creat Clear Calc 87 ml/min Estimated GFR > 60 (59 - ) Glucose 83 (70-99) mg/dL Calculated Osmolality 290 (285-295) mOsm/kg Calcium 9.2 (8.5-10.1) mg/dL Total Bilirubin 0.2 (0.00-1.00) mg/dL AST 21 (15-37) U/L ALT 36 (16-63) U/L Alkaline Phosphatase 114 (46-116) U/L Total Protein 7.1 (6.4-8.2) g/dL Albumin 3.6 (3.4-5.0) g/dL Urine Color Light yellow (Yellow) Urine Appearance Clear (Clear) Urine pH 6.0 (5.0-8.0) Ur Specific [place] 1.015 (1.010-1.020) Urine Protein Negative (Negative) Urine Glucose (UA) Negative (Negative) Urine Ketones Negative (Negative) Ur Blood (Man) Negative (Negative) Urine Nitrate Negative (Negative) Urine Bilirubin Negative (Negative) Urine Urobilinogen 0.2 (0.2-1.0) mg/dL Leukocyte Esterase Rfl Negative (Negative) RYAN/UL Critical Care Time Critical Care Time Critical Care Time: No Discharge Plan Discharge Clinical Impression: Acute left flank pain Patient Disposition: Home, Self-Care Condition: Improved Instructions: Acute Low Back Pain (ED) Additional Instructions: Return if symptoms are worsening , call your family physician for appointment, take Tylenol as as needed for aches and pain, continue home medications. Patient Language: Khmer Prescriptions: New ketorolac 10 mg tablet 10 mg PO Q6H 5 Days Qty: 20 0RF cyclobenzaprine 7.5 mg tablet 7.5 mg PO TID Qty: 20 0RF No Action losartan-hydrochlorothiazide 50-12.5 mg tablet 1 tablet PO DAILY Qty: 20 0RF cyclobenzaprine 5 mg tablet 5 mg PO TID PRN (Reason: Spasms) Follow-up/Referrals: Benny Connell MD [Primary Care Provider] -
[2024-09-01 15:21] LABS: Basophils Absolute Auto 0.03 K/mm3 (0.00-0.10); Basophils Percent Auto 0.5 % (0.0-1.0); Eosinophils Absolute Auto 0.13 K/mm3 (0.02-0.50); Eosinophils Percent Auto 2.2 % (1.0-6.0); Hematocrit 41.3 % (40.0-54.0); Hemoglobin 14.1 g/dL (14.0-18.0); Immature Granulocyte Absolute 0.02 K/mm3 (0.00-0.00); Immature Granulocyte Percent A 0.3 % (0.0-0.0); Lymphocytes Absolute Auto 0.26 K/mm3 (1.10-4.50); Lymphocytes Percent Auto 4.3 % (18.0-42.0); Mean Corpuscular HGB Conc 34.1 g/dL (32-36); Mean Corpuscular Hemoglobin 30.4 pg (27.0-31.0); Mean Platelet Volume 9.6 fl (8.7-11.0); Monocytes Absolute Auto 0.61 K/mm3 (0.10-0.90); Monocytes Percent Auto 10.1 % (2.0-11.0); Neutrophils Absolute Auto 4.97 K/mm3 (1.70-7.20); Neutrophils Percent Auto 82.6 % (50.0-70.0); Platelet Count Result 208 K/mm3 (150-420); Red Blood Count 4.64 M/mm3 (4.70-6.10); Red Cell Distribution Width 12.3 % (11.6-14.4)
[2024-09-01] MEDS: ONDANSETRON INJ 4 MG/2 ML VIAL IV PUSH (15:22)
[2024-09-01] MEDS: SODIUM CHLORIDE 0.9% IV 1,000 ML 999 ML IV CONT (15:22)
[2024-09-01] MEDS: TAMSULOSIN HCL 0.4 MG CAPSULE PO (15:23)
[2024-09-01 15:40] LABS: Alanine Aminotransferase 36 U/L (16-63); Albumin Level 3.6 g/dL (3.4-5.0); Alkaline Phosphatase 114 U/L (46-116); Anion Gap 8 mmol/L (4-12); Aspartate Amino Transferase 21 U/L (15-37); Bilirubin,Total 0.2 mg/dL (0.00-1.00); Blood Urea Nitrogen 12 mg/dL (7-18); Calcium 9.2 mg/dL (8.5-10.1); Carbon Dioxide 30 mmol/L (21-32); Chloride 103 mmol/L (98-108); Estimated CRCL calculation 87 ml/min; Estimated Glomerular Filt Rate > 60; Glucose 83 mg/dL (70-99); Osmolality Calculated 290 mOsm/kg (285-295); Potassium 4.1 mmol/L (3.5-5.1); Sodium 141 mmol/L (136-145); Total Protein 7.1 g/dL (6.4-8.2)
[2024-09-01] MEDS: diphenhydrAMINE HCl INJ 50 MG/ML VIAL IV PUSH (15:43)
[2024-09-01] MEDS: METOCLOPRAMIDE HCL INJ 10 MG/2 ML VIAL IV PUSH (15:44)
[2024-09-01] MEDS: KETOROLAC 30 MG/ML VIAL (*BKC) IV PUSH (15:46)
--- OUTSIDE RECORDS SUMMARY | 2024-09-01 15:58 | XMS_ITS ---
Care Plan - [facility] Created on: September 01, 2024 MISBAH KOROMA : 1990 Sex: Male Author Organization [facility] Address [address] [place] [id number] Phone Care Team Providers Care Pre Press Operator Name Role Phone KALYN GILLESPIE, MARCELL Primary Care Provider [phone] [facility] Unavailable [phone]
--- OUTSIDE RECORDS SUMMARY | 2024-09-01 15:58 | XMS_ITS | Clinical Summary ---
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 than noted. Cardiovascular: No cardiovascular symptoms other than noted. Pulmonary: No pulmonary symptoms other than noted. Gastrointestinal: Normal appetite No GI symptoms other than noted. Nausea. Genitourinary: No genitourinary symptoms other than noted. Endocrine: No endocrine symptoms other than noted. Weakness. Hematologic: No easy bleeding and no tendency for easy bruising. Musculoskeletal: Musculoskeletal symptoms back pain. Neurological: Neurological symptoms numbness L thigh, burning on fire pain all over. No fainting passing out with needles or medical procedures. Psychological: No sleep disturbances other than noted. Skin: No skin symptoms other than noted. Physical Findings - Vitals taken 12/13/2023 01:35 pm BP-Sitting R 126/74 mmHg BP Cuff Size Regular Pulse Rate-Sitting 124 bpm Temp-Temporal 96.9 F Height 69 in Weight 175 lbs Body Mass Index 25.8 kg/m2 Pain Level 9 Pain Level Note Lumbar Oxygen Saturation 98 % Musculoskeletal System: General/bilateral: Musculoskeletal Scales: Value Lumbar oswestry score 32 Psychiatric: Psychiatric: Value PHQ9 score: 4 Constitutional: Well developed. Well nourished. No acute distress. HEENT: NC/AT. Anicteric. Clear Conjunctiva. PERRLA. MM's pink/moist. No discharge via nares. No discharge via EAC. Neck supple. No thyromegally. No palpable masses. No lymphadenopathy in cervical chain bilaterally. CVS: RRR. No murmurs. No peripheral edema. Peripheral pulses palpable in all extremities. Pulmonary: CTA bilaterally. No wheezes. No rales. No crackles. No rubs. Normal chest expansion. Spine/MSK: Limited exam. Significant allodynia. Reduced ROM lumbar spine. Tender to entire lumbar spine. Gait: Not antalgic. No steppage gait. No Trendelenburg gait. No circumspected gait pattern. Heel walk normal. Toe walk normal. Tandem gait normal. Neuro: Awake. Alert. Oriented x3. DTR's intact in all extremities. DTR's equal in all extremities. No sensory deficit. No motor deficit. Psych: No apparent distress. Mood normal. Affect normal. Delusional type of behaviors. Skin: Normal. [place], warm, dry. Tests Educational Testing: Questionnaires PHQ-9: Value SOAPP-R: total score 12 Assessment - [M47.896 - Other spondylosis, lumbar region] Lumbar spondylosis - [M54.50 - Low back pain, unspecified] Low back pain - [F22 - Delusional disorders] Delusional disorder of unknown (axis III) etiology - [G89.4 - Chronic pain syndrome] Chronic pain syndrome Therapy - Reviewed & agreed to staff entries. - Intervention and counseling on cessation of tobacco use: Patient recieved smoking cessation handout. - Clinical summary provided to patient. Discussed Schedule for confirmatory MBB. Continue current medications [increase muscle relaxer dose] and home exercises. FU after procedure. Failed Gabapentin Intolerance to Duloxetine Risks, benefits and alternatives (including doing nothing) were discussed with the patient who agreed to proceed with interventional treatment despite risk and agreement that potential benefits outweighs the chance of significant harm. Plan StartCited - Other spondylosis, lumbar region Pain Management CPT/Facet Joint Procedur: Intraarticular joint/Medial Branch Block L/S 1st, Intraarticular joint/Medial Branch Block L/S 2nd Instructions: bilateral L3, L4, L5 medial branch blocks under fluoro Cyclobenzaprine HCl 10 MG tablet One tablet three times a day as needed, 30 days, 1 refills EndCited Practice Management Use of tobacco assessment performed Review of medications documented; Standardized depression screening: positive for symptoms and for adult impression and score eleven; [35312] Established outpatient, medically appropriate H&P, moderate level decision making, 30+ minutes. A total of [15] minutes were spent caring for this patient. Please see details of care in the notes above. Results of this interaction were communicated directly to the patient's referring and/or primary care provider. All imaging studies and test results discussed in the above document were personally reviewed and evaluated by the performing provider. For all patients on acute or chronic opioids, ongoing need for opioid analgesia is assessed at each visit with consideration of discontinuation or wean to lowest effective dose when possible and appropriate. Contents of this document have been edited for correctness, but may be subject to typographical or pickling drum operator errors. Verify all diagnoses, medications, dosages, and patient instructions with patient and/or the originator of this document. Care Team - MARCELL MCCAIN MD - [facility] - Psychiatric/Mental Health Health Reminders - Assess BMI satisfied 12/13/2023. - Assess Tobacco Use satisfied 12/13/2023. - Depression Screening satisfied 12/13/2023. - Smoking & Tobacco Cessation Intervention and Counseling satisfied 12/13/2023.
--- OUTSIDE RECORDS SUMMARY | 2024-09-01 15:58 | XMS_ITS | Clinical Summary ---
Author Organization [facility] Address [address] [place] [phone] Phone Care Team Providers Care Inventory Control Planner Name Role Phone KALYN GILLESPIE, MARCELL Primary Care Provider [phone] ALONDRA PMHNP-BC, SIVAN Unavailable [phone] Reason for Visit and Chief Complaint The Chief Complaint is: Follow up on L5-S1 TFESI 07/04/2023 ~ ~0 and 0 ongoing Problems Includes: Problems addressed during this encounter and other active Problems Current Visit Onset Date Resolved Date Provider Conditio n Status Delusional Disorder Unknown SILVIA Vera TAMAR PLASTERER TENDER-FPA, PRODUCT DIRECTOR-BC Active Last Documented On 4 1:59PM ; [facility] Plan of Treatment Pending Tests Order Diagnosis Results Due Ordering Provider Pain Management CPT - Facet Joint Procedur Intraarticular joint/Medial Branch Block L/S 1st Other spondylosis, lumbar region 01/12/24 SILVIA Gamez TAMAR PLASTERER TENDER-FPA, PRODUCT DIRECTOR-BC Last Documented On 4 11:28AM ; [facility] Pain Management CPT - Facet Joint Procedur Intraarticular joint/Medial Branch Block L/S 2nd Other spondylosis, lumbar region 01/12/24 SILVIA Vera TAMAR PLASTERER TENDER-FPA, PRODUCT DIRECTOR-BC Last Documented On 4 11:28AM ; [facility] Assessments Includes: Assessments from this encounter Findings - [M54.50 - Low back pain, unspecified] Low back pain - Last Documented On 08/01/2023 2:00PM ; [facility] - [M54.16 - Radiculopathy, lumbar region] Lumbar radiculopathy - Last Documented On 08/01/2023 2:00PM ; [facility] - [F22 - Delusional disorders] Delusional disorder of unknown (axis III) etiology - Last Documented On 08/01/2023 2:00PM ; [facility] - [G89.4 - Chronic pain syndrome] Chronic pain syndrome - Last Documented On 08/01/2023 2:00PM ; [facility] Medical Equipment - Implanted Devices Includes: Current Devices No Medical Equipment Recorded Medications Includes: Medications discussed during this encounter and other current Medications Discontinued / Stopped on this date INDIO PALUMBO on 06/06/2023 DULoxetine HCl 60 MG Oral Capsule Delayed Release Particles Provider: INDIO PALUMBO Diagnosis: Low back pain, u nspecified Last Documented On 4 1:33PM By Juana TINEO ; [facility] Diclofenac Sodium 75 MG Oral Tablet Delayed Release Provider: MARCELL MCCAIN MD Diagnosis: Last Documented On 4 1:49PM By ISLVIA BORJAS ; [facility] Gabapentin 300 MG Oral Capsule Provider: MARCELL MCCAIN MD Diagnosis: Last Documented On 4 1:49PM By SILVIA BORJAS ; [facility] Ziprasidone HCl 20 MG Oral Capsule Provid er: Diagnosis: Last Documented On 4 1:43PM By SILVIA BORJAS ; [facility] Cyclobenzaprine HCl 5 MG Oral Tablet Prov ider: MARCELL MCCAIN MD Diagnosis: Last Documented On 4 1:52PM By SILVIA BORJAS ; [facility] New / Renewed during this visit INDIO PALUMBO on 08/01/2023 Cyclobenzaprine HCl 5 MG Oral Tablet Provider: INDIO PALUMBO 90 day supply: 270 tablet, 0 refills Diagnosis: Low back pain, unspecified One tablet three times a day as needed for low back pain Pharmacy: [address], [phone] - Last Documented On 4 4:06PM By KIMBERLY BYERS ; [facility] Meloxicam 15 MG Oral Tablet Provider: INDIO EASTON 90 day supply: 90 tablet, 1 refills Diagnosis: Low back pain, unspecified One tablet daily with a meal Pharmacy: [address], [phone] - Last Documented On 4 4:23PM By SILVIA BORJAS ; [facility] Current Medications (continue as prescribed) Cyclobenzaprine HCl 10 MG Oral Tablet 12/13/2023 Provider: INDIO PALUMBO Diagnosis: Other spondylosi s, lumbar region One tablet three times a day as needed Last Documented On 4 2:08PM By SILVIA BORJAS ; [facility] Cyclobenzaprine HCl 5 MG Ora l Tablet 10/30/2023 Provider: KIMBERLY BYERS Diagnosis: Low back pain, unspecified One tablet three times a day as needed for low back pain Last Documented On 4 4:23PM By SILVIA BORJAS ; [facility] Famotidine 40 MG Oral Tablet 05/09/2023 Provider: MARCELL MCCAIN MD Diagnosis: Last Documented On 3 12:43PM By SILVIA BOJRAS ; [facility] Medications Administered Includes: Administered Medications from this encounter No Administered Medications Recorded Vital Signs Includes: Vital Signs from this encounter Vital Name 08/01/2023 01:33P Blood Pressure Sitting L 148/84 BP Cuff Size Regular Pulse Rate-Sitting (bpm) 116 Temp-Temporal 98.2 Height (in) 69 Weight (lb) 137 Body Mass Index 20.2 Body Surface Area 1.8 Pain Level 9 Oxygen Saturation (%) 98 Last Documented: On 08/01/2023 1:36PM ; [facility] Results Includes: Results discussed during this encounter No Results Recorded For Specified Dates History of Present Illness Includes: History of Present Illness from this encounter HPI PHQ-9 Score: Date:06/06/2023 BPI Score: Date:Oswestry Score: 38% Date:06/06/2023SOAPP-R Score: 12 Moderate Date:06/06/2023ain Location: LumbarQuality: burning, stings, sharp, tearing. Radiation: Severity: Timing: constant. Associated Sx: Aggravating Factors: lifting, bending. Alleviating Factors:Past Tx: Physical therapy 6 weeks for low back Sep-Apr 2023 MISBAH KOROMA is a 33 year old [...] - Last drug screen appropriate N/A Discussion: Here for FU after L5-S1 TFESI. He [...] in his necklace. 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 He is very cooperative and pleasant. He reports the Diclofenac being somewhat helpful. He does not feel like the Gabapentin has been helpful at all. He needs a refill on the Cyclobenzaprine, this is also helpful for him. He is aware we will not be coming back to [place] but he is ok with seeing us in [place]. He continues his therapy exercises daily and this helps. He utilizes heat. We discussed changing NSAID to a 1x daily medication for ease of use and compliance. He would like to do this. He understands he should stop Diclofenac and not use any over the counter Ibuprofen/Advil, Aleve/Naprosyn. He can take Tylenol as needed. Continue muscle relaxer. FIRST VISIT: Patient referred by his primary care Dr. [...] . He also reports of being a [employer] for six years. He states he was discharged five years ago. During his time as a [employer] he reports being captured for two [...] it is at a kidney Center in [place]. I have made several phone calls to [...] stenosis. Mild bilateral L5-S1 neural foraminal stenosis. Social History Description Last Updated Not using drugs Using medical marijuana 06/06/2023 Last Documented On 4 1:21PM ; [facility] Current smoker 06/06/2023 Last Documented On 4 1:21PM ; [facility] Difficulty walking 06/06/2023 Last Documented On 4 1:21PM ; [facility] No consumption of alcohol 06/06/2023 Last Documented On 4 1:21PM ; [facility] Smoking packs of cigarettes per day 0 Last Documented On 4 1:21PM ; [facility] Smoking Status Unknown Procedures and Surgical History Includes: Procedures from this encounter Procedures Code Diagnosis Performing Provider Service L ocation Service Date use of tobacco assessment performed 1000F Last Documented On 4 1:28PM ; [facility] review of medications documented 1160F Last Documented On 4 1:28PM ; [facility] screening for adult depression: impressi on and score four Last Documented On 4 1:28PM ; [facility] standardized depression screening: posit yulissa for symptoms Last Documented On 4 1:28PM ; [facility] Reviewed & agreed to staff entries. Last Documented On 4 1:28PM ; [facility] Clinical summary provided to patient Last Documented On 4 1:28PM ; [facility] SOAPP-R: total score 12 Last Documented On 4 1:28PM ; [facility] Medical History Includes: Medical History addressed during this encounter Description Last Updated Has had no fall in the last 12 months. 0 11/05/2023 Last Documented On 4 1:21PM ; [facility] Please list all illnesses/co nditions you have been diagnosed with: Degenerative Disc Disease ~Kidney Cancer [per patient] ultrasound showed benign cyst? 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 06/06/2023 Last Documented On 4 1:21PM ; [facility] Family History Includes: Family History addressed during [...] Active Last Documented On 4 1:34PM ; [facility] DULoxetine HCl Allergy Seizure 08/01/2023 Acti ve Last Documented On 4 1:34PM ; [facility] Encounters Encounter Provider Location Date Check-In Time Check-Out Time Diagnosis PAIN MANAGEMENT FOLLOW UP SILVIA Gamez TAMAR PLASTERER TENDER-FPA, PRODUCT DIRECTOR-BC [facility] ON 08/01/19 24 1:27PM 1:56PM Chronic Pain Syndrome,Delu sional Disorder of Unknown ([place] III) Etiology,Lumb ar Radiculopathy ,Dorsopathy Low Back Pain Insurance Includes: Active Insurance Policies Plan Name Member ID Group # Subscriber Relationship Effect yulissa Dates 1 - [facility] [id number] MISBAH KOROMA Self Clinical Notes Includes: Clinical Notes from this encounter * Progress note Date Encounter Last Documented by 08/01/2023 PAIN MANAGEMENT FOLLOW UP Last d ocumented on 08/01/2023; 2:00 PM, SILVIA Gamez TAMAR PLASTERER TENDER-FPA, PRODUCT DIRECTOR-BC; [facility] Active Problems & Conditions - Delusional Disorder Chief Complaint The Chief Complaint is: Follow up on L5-S1 TFESI 07/04/2023 0 and 0 ongoing. History of Present Illness PHQ-9 Score: Date:06/06/2023 BPI Score: Date: Oswestry Score: 38% Date:06/06/2023 SOAPP-R Score: 12 Moderate Date:06/06/2023 Pain Location: Lumbar Quality: burning, stings, sharp, tearing. Radiation: Severity: Timing: constant. Associated Sx: Aggravating Factors: lifting, bending. Alleviating Factors: Past Tx: Physical therapy 6 weeks for low back Mar-Apr 2023 MISBAH KOROMA is a 33 year old [...] - Last drug screen appropriate N/A Discussion: Here for FU after L5-S1 TFESI. He [...] in his necklace. 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 He is very cooperative and pleasant. He reports the Diclofenac being somewhat helpful. He does not feel like the Gabapentin has been helpful at all. He needs a refill on the Cyclobenzaprine, this is also helpful for him. He is aware we will not be coming back to [place] but he is ok with seeing us in [place]. He continues his therapy exercises daily and this helps. He utilizes heat. We discussed changing NSAID to a 1x daily medication for ease of use and compliance. He would like to do this. He understands he should stop Diclofenac and not use any over the counter Ibuprofen/Advil, Aleve/Naprosyn. He can take Tylenol as needed. Continue muscle relaxer. FIRST VISIT: Patient referred by his primary care Dr. [...] . He also reports of being a [employer] for six years. He states he was discharged five years ago. During his time as a [employer] he reports being captured for two [...] it is at a kidney Center in [place]. I have made several phone calls to [...] stenosis. Mild bilateral L5-S1 neural foraminal stenosis. Current Medication - Benztropine Mesylate 0.5 MG Oral Tablet 60 days, 0 refills - Divalproex Sodium 250 MG Oral Tablet Delayed Release 30 days, 0 refills - Famotidine 40 MG Oral Tablet 30 days, 0 refills Past Medical/Surgical History Reported: Physical therapy and Please list all illnesses/conditions you have been diagnosed with: Degenerative Disc Disease Kidney Cancer [per patient] ultrasound showed benign cyst? 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 Medical: Moderate to severe pain. Physical Trauma: Has had no fall in the last 12 months. and Denies a fear of falling. Social History Difficulty walking. Tobacco use: Cigarette smoking smoking packs of cigarettes per day 0. Alcohol: No consumption of alcohol. Drug Use: Not using drugs Using medical marijuana. Allergies - DULoxetine HCl Reaction: Seizure - [...] than noted. Physical Findings - Vitals taken 08/01/2023 01:33 pm BP-Sitting L 148/84 mmHg BP Cuff Size Regular Pulse Rate-Sitting 116 bpm Temp-Temporal 98.2 F Height 69 in Weight 137 lbs Body Mass Index 20.2 kg/m2 Body Surface Area 1.8 m2 Pain Level 9 Pain Level Note Lumbar Lumbar Oxygen Saturation 98 % Musculoskeletal System: General/bilateral: Musculoskeletal Scales: Value Lumbar oswestry score 38 Psychiatric: Psychiatric: Value PHQ9 score: 4 Constitutional: [...] normal. Delusional type of behaviors. Skin: Normal. [place], warm, dry. Tests Educational Testing: Questionnaires PHQ-9: Value SOAPP-R: total score 12 Assessment - [M54.50 - Low back pain, unspecified] Low back pain - [M54.16 - Radiculopathy, lumbar region] Lumbar radiculopathy - [F22 - Delusional disorders] Delusional disorder of unknown (axis III) etiology - [G89.4 - Chronic pain syndrome] Chronic pain syndrome Therapy - Reviewed & agreed to staff entries. - Clinical summary provided to patient. Discussed Stop Diclofenac and start Meloxciam. No over the counter NSAIDs. It is ok to take Tylenol. Continue muscle relaxer. Stop Gabapentin since it is not helping at all. Continue PT exercises. FU 3 months. Plan StartCited - Low back pain, unspecified Meloxicam 15 MG tablet One tablet daily with a meal, 90 days, 1 refills Cyclobenzaprine HCl 5 MG tablet One tablet three times a day as needed for low back pain, 90 days, 0 refills EndCited Practice Management Use of tobacco assessment performed Review of medications documented; Standardized depression screening: positive for symptoms and for adult impression and score four; [51092] Established outpatient, medically appropriate H&P, moderate level decision making, 30-39 minutes. A total of [15] minutes were [...] but may be subject to typographical or environmental health technician errors. Verify all diagnoses, medications, dosages, and patient instructions with patient and/or the originator of this document. Care Team - MARCELL MCCAIN MD - Primary Care - TRINY BRITO- - Psychiatric/Mental Health Health Reminders - Assess BMI satisfied 08/01/2023. - Assess Tobacco Use satisfied 08/01/2023. - Depression Screening satisfied 08/01/2023.
--- OUTSIDE RECORDS SUMMARY | 2024-09-01 15:58 | XMS_ITS | Clinical Summary ---
Author Organization [facility] Address [address] [place] [id number] Phone Care Team Providers Care Assembly Line Worker Name Role Phone MARCELL MCCAIN MD Primary Care Provider [phone] ALONDRA PMHNP-BC, SIVAN Unavailable [phone] Reason for Visit and Chief Complaint POST PROCEDURE PHONE CALL Problems Includes: Problems addressed during this encounter and other active Problems All Visits Onset Date Resolved Date Provider Condition S tatus Delusional Disorder Unknown SILVIA BOYLE BLENDING KETTLE TENDER-FPA, BALLAST CLEANING MACHINE OPERATOR-BC Active Last Documented On 4 1:59PM ; [facility] Plan of Treatment Pending Tests Order Diagnosis Results Due Ordering Provider Pain Management CPT - Facet Joint Procedur Intraarticular joint/Medial Branch Block L/S 1st Other spondylosis, lumbar region 01/12/24 SILVIA BOYLE BLENDING KETTLE TENDER-FPA, BALLAST CLEANING MACHINE OPERATOR-BC Last Documented On 4 11:28AM ; [facility] Pain Management CPT - Facet Joint Procedur Intraarticular joint/Medial Branch Block L/S 2nd Other spondylosis, lumbar region 01/12/24 SILVIA BOYLE BLENDING KETTLE TENDER-FPA, BALLAST CLEANING MACHINE OPERATOR-BC Last Documented On 4 11:28AM ; [facility] Assessments Includes: Assessments from this encounter No Assessments Recorded Medical Equipment - Implanted Devices Includes: Current Devices No Medical Equipment Recorded Medications Includes: Medications discussed during this encounter and other current Medications Current Medications (continue as prescribed) Cyclobenzaprine HCl 10 MG Oral Tablet 12/13/2023 Provider: SILVIA BOYLE BLENDING KETTLE TENDER-FPA BALLAST CLEANING MACHINE OPERATOR-BC Diagnosis: Other spondylosi s, lumbar region One tablet three times a day as needed Last Documented On 4 2:08PM By SILVIA BOYLE [facility] ; [facility] Cyclobenzaprine HCl 5 MG Ora l Tablet 10/30/2023 Provider: KIMBERLY [facility] Diagnosis: Low back pain, unspecified One tablet three times a day as needed for low back pain Last Documented On 4 4:23PM By SILVIA BOYLE [facility]- ; [facility] Meloxicam 15 MG Oral Tablet 08/01/2023 Provider: SILVIA VAN, BALLAST CLEANING MACHINE OPERATOR-BC Diagnosis: Low back pain, u nspecified One tablet daily with a meal Last Documented On 4 4:23PM By SILVIA BOYLE [facility] ; [facility] Famotidine 40 MG Oral Tablet 05/09/2023 Provider: MARCELL MCCAIN MD Diagnosis: Last Documented On 3 12:43PM By SILVIA BOYLE [facility] ; [facility] Medications Administered Includes: Administered Medications from this encounter No Administered Medications Recorded Results Includes: Results discussed during this encounter No Results Recorded For Specified Dates History of Present Illness Includes: History of Present Illness from this encounter No History of Present Illness Recorded Social History Description Last Updated Not using drugs Using medical marijuana 06/06/2023 Last Documented On 4 1:28PM ; [facility] Current smoker 06/06/2023 Last Documented On 4 1:28PM ; [facility] Difficulty walking 06/06/2023 Last Documented On 4 1:28PM ; [facility] No consumption of alcohol 06/06/2023 Last Documented On 4 1:28PM ; [facility] Smoking packs of cigarettes per day 0 Last Documented On 4 1:28PM ; [facility] Smoking Status Unknown Medical History Includes: Medical History addressed during this encounter Description Last Updated Has had a fall in the last 12 months. Last Documented On 4 1:28PM ; [facility] Please list all illnesses/co nditions [...] tetanus claims 06/07/2023 Last Documented On 4 1:28PM ; [facility] Moderate to severe pain 06/06/2023 Last Documented On 4 1:28PM ; [facility] Physical therapy 06/06/2023 Last Documented On 4 1:28PM ; [facility] Denies a fear of falling. 06/06/2023 Last Documented On 4 1:28PM ; [facility] Family History Includes: Family History addressed during this encounter No Family History Recorded Review of Systems Includes: Review of Systems from this encounter No Review of Systems Recorded Mental Status Includes: Mental Status from this encounter No Mental Status Recorded Functional Status Includes: Functional Status from this encounter No Functional Status Recorded Physical Exam Includes: Physical Exam from this encounter No Physical Exam Recorded Allergies Includes: Active Allergies Substance Type Reaction Onset Date Resolved Date Statu s Haldol Allergy Dystonia 06/07/2023 Active Last Documented On 4 1:34PM ; [facility] DULoxetine HCl Allergy Seizure 08/01/2023 Acti ve Last Documented On 4 1:34PM ; [facility] Encounters Encounter Provider Location Date Check-In Time Check-Out Time Diagnosis POST PROCEDURE PHONE CALL SILVIA BOYLE BLENDING KETTLE TENDER-FPA, BALLAST CLEANING MACHINE OPERATOR-BC 12/06/2023 1:28PM 11:59PM Insurance Includes: Active Insurance Policies Plan Name Member ID Group # Subscriber Relationship Effect yulissa Dates 1 - [facility] [employer] [id number] MISBAH Marroquin Clinical Notes Includes: Clinical Notes from this encounter * Progress note Date Encounter Last Documented by 12/06/2023 POST PROCEDURE PHONE CALL Last d ocumented on 12/06/2023; 1:30 PM, Rosanna Her RN; [facility] Top of Document Post-Procedural Patient Screening Questionnaire Date of Procedure: 12/04/23 Procedure: bilateral L3, L4, L5 MBB (#1) 1. How have you felt since your last procedure? Pain level went down to a 4/10 for several hours after procedure. Improved Same Worse 2. Pain level prior to procedure? 02/28 3. Pain level currently? 02/28 4. How long after procedure did symptoms begin? Same pain but worse New Symptoms ? If new, describe: Improving Staying the same Getting worse 5. Any post procedure issues with injection? denies Heat Swelling Soreness Redness Streaking Injection site pain Bleeding Discharge/Drainage 6. Are you experiencing new numbness in the groin or saddle area? Yes No 7.New loss of bowel or bladder control? Yes No 8. Are you having any of the following symptoms? denies Fever Chills Night Sweats Rigors/Shaking Chills Headaches Neck Stiffness Sensitivity to sound New muscle pain/Stiffness Weakness Nausea Vomiting Diarrhea Dizziness Rash Flushing Mood Irritability Blood Pressure changes Blood sugar changes call completed by Harish Her RN Active Problems & Conditions - Delusional Disorder Current Medication - Cyclobenzaprine HCl 5 MG [...] HCl Reaction: Seizure - Haldol Reaction: Dystonia Care Team - MARCELL MCCAIN MD - Primary Care - TRINY BRITO- - Psychiatric/Mental Health Health Reminders - Assess Tobacco Use satisfied 12/06/2023.
--- OUTSIDE RECORDS SUMMARY | 2024-09-01 15:58 | XMS_ITS ---
Author Organization [facility] Address [address] [place] [phone] Phone Care Team Providers Care Char Conveyor Tender Cellar Name Role Phone KALYN GILLESPIE, MARCELL Primary Care Provider [phone] CANTU PMHNP-BC, MICHELLE Unavailable [phone] Problems Includes: Active, inactive, and resolved Problems All Visits Onset Date Resolved Date Provider Condition S tatus Delusional Disorder Unknown SILVIA BOYLE PAPER PATTERN FOLDER-FPA, BANQUET COORDINATOR-BC Active Last Documented On 4 1:59PM ; [facility] Plan of Treatment Pending Tests Order Diagnosis Results Due Ordering Provider Pain Management CPT - Facet Joint Procedur Intraarticular joint/Medial Branch Block L/S 1st Other spondylosis, lumbar region 01/12/24 SILVIA BOYLE PAPER PATTERN FOLDER-FPA, BANQUET COORDINATOR-BC Last Documented On 4 11:28AM ; [facility] Pain Management CPT - Facet Joint Procedur Intraarticular joint/Medial Branch Block L/S 2nd Other spondylosis, lumbar region 01/12/24 SILVIA BOYLE PAPER PATTERN FOLDER-FPA, BANQUET COORDINATOR-BC Last Documented On 4 11:28AM ; [facility] Instructions to patient Intervention and counseling on cessation of tobacco use : Patient recieved smoking cessation handout Last Documented On 4 1:32PM ; [facility] Assessments Includes: Assessments for all patient encounters Findings Encounter Date Chronic pain syndrome PAIN MANAGEMENT FO LLOW UP with SILVIA BOYLE PAPER PATTERN FOLDER-FPA, BANQUET COORDINATOR-BC 12/13/2023 Last Documented On 4 2:51PM ; [facility] Delusional disorder of unkno wn (axis III) etiology PAIN MANAGEMENT FOLLOW UP with SILVIA Vera TAMAR PAPER PATTERN FOLDER-FPA, BANQUET COORDINATOR-BC 12/13/2023 Last Documented On 4 2:51PM ; [facility] Low back pain PAIN MANAGEMENT FOLL OW UP with SILVIA Vera TAMAR PAPER PATTERN FOLDER-FPA, BANQUET COORDINATOR-BC 12/13/2023 Last Documented On 4 2:51PM ; [facility] Lumbar spondylosis PAIN MANAGEMENT FOLL OW UP with SILVIA Vera TAMAR PAPER PATTERN FOLDER-FPA, BANQUET COORDINATOR-BC 12/13/2023 Last Documented On 4 2:51PM ; [facility] Chronic pain syndrome PAIN MANAGEMENT FO LLOW UP with SILVIA Vera TAMAR PAPER PATTERN FOLDER-FPA, BANQUET COORDINATOR-BC 11/05/2023 Last Documented On 4 4:25PM ; [facility] Delusional disorder of unkno wn (axis III) etiology PAIN MANAGEMENT FOLLOW UP with SILVIA Gamez TAMAR PAPER PATTERN FOLDER-FPA, BANQUET COORDINATOR-BC 11/05/2023 Last Documented On 4 4:25PM ; [facility] Low back pain PAIN MANAGEMENT FOLL OW UP with SILVIA Vera TAMAR PAPER PATTERN FOLDER-FPA, BANQUET COORDINATOR-BC 11/05/2023 Last Documented On 4 4:25PM ; [facility] Lumbar spondylosis PAIN MANAGEMENT FOLL OW UP with SILVIA Vera TAMAR PAPER PATTERN FOLDER-FPA, BANQUET COORDINATOR-BC 11/05/2023 Last Documented On 4 4:25PM ; [facility] Chronic pain syndrome PAIN MANAGEMENT FO LLOW UP with SILVIA Vera TAMAR PAPER PATTERN FOLDER-FPA, BANQUET COORDINATOR-BC 08/01/2023 Last Documented On 4 2:00PM ; [facility] Delusional disorder of unkno wn (axis III) etiology PAIN MANAGEMENT FOLLOW UP with SILVIA G TAMAR PAPER PATTERN FOLDER-FPA, BANQUET COORDINATOR-BC 08/01/2023 Last Documented On 4 2:00PM ; [facility] Low back pain PAIN MANAGEMENT FOLL OW UP with SILVIA G TAMAR PAPER PATTERN FOLDER-FPA, BANQUET COORDINATOR-BC 08/01/2023 Last Documented On 4 2:00PM ; [facility] Lumbar radiculopathy PAIN MANAGEMENT FOL LOW UP with SILVIA BOYLE APRN-FPA, BANQUET COORDINATOR-BC 08/01/2023 Last Documented On 4 2:00PM ; [facility] Chronic pain syndrome PAIN MANAGEMENT NE W CONSULT with SILVIA BOYLE PAPER PATTERN FOLDER-FPA, BANQUET COORDINATOR-BC 06/06/2023 Last Documented On 3 12:44PM ; [facility] Delusional disorder of unkno wn (axis III) etiology PAIN MANAGEMENT NEW CONSULT with SILVIA BOYLE PAPER PATTERN FOLDER-FPA, BANQUET COORDINATOR-BC 06/06/2023 Last Documented On 3 12:44PM ; [facility] Low back pain PAIN MANAGEMENT NEW CONSULT with SILVIA BOYLE PAPER PATTERN FOLDER-FPA, BANQUET COORDINATOR-BC 06/06/2023 Last Documented On 3 12:44PM ; [facility] Lumbar radiculopathy PAIN MANAGEMENT NEW CONSULT with SILVIA BOYLE PAPER PATTERN FOLDER-FPA, BANQUET COORDINATOR-BC 06/06/2023 Last Documented On 3 12:44PM ; [facility] Instructions Includes: Instructions for all patient encounters Instructions to patient Intervention and counseling on cessation of tobacco use : Patient recieved smoking cessation handout Last Documented On 4 1:32PM ; [facility] Medical Equipment - Implanted Devices Includes: Current and historical Devices No Medical Equipment Recorded Medications Includes: Current and historical Medications Current Medications (continue as prescribed) Cyclobenzaprine HCl 10 MG Oral Tablet 12/13/2023 Provider: INDIO PALUMBO Diagnosis: Other spondylosi s, lumbar region One tablet three times a day as needed Last Documented On 4 2:08PM By SILVIA BORJAS ; [facility] Cyclobenzaprine HCl 5 MG Ora l Tablet 10/30/2023 Provider: KIMBERLY BYERS Diagnosis: Low back pain, unspecified One tablet three times a day as needed for low back pain Last Documented On 4 4:23PM By SILVIA BORJAS ; [facility] Meloxicam 15 MG Oral Tablet 08/01/2023 Provider: SILVIA BOYLE APRN- CODY VAN-BC Diagnosis: Low back pain, u nspecified One tablet daily with a meal Last Documented On 4 4:23PM By SILVIA ROSS- ; [facility] Famotidine 40 MG Oral Tablet 05/09/2023 Provider: MARCELL MCCAIN MD Diagnosis: Last Documented On 3 12:43PM [facility] ; [facility] Past Medications on file Cyclobenzaprine HCl 5 MG Oral Tablet 08/01/2023 - 10/30/2023 Provider: SILVIA BOLAND BANQUET COORDINATOR-BC Diagnosis: Low back pain, unspecified One tablet three times a day as needed for low back pain Last Documented On 4 4:06PM By KIMBERLY [facility] ; [facility] Divalproex Sodium 250 MG Ora l Tablet Delayed Release 07/08/2023 - 11/05/2023 Provider: MICHELLE FLORES HNP-BC Diagnosis: Last Documented On 4 4:03PM By Juana TINEO ; [facility] DULoxetine HCl 30 MG Oral Capsule Delayed Release Particles 06/06/2023 - 07/09/2023 Provider: SILVIA BOLAND BANQUET COORDINATOR-BC Diagnosis: Low back pain, unspecified take 1 capsule at bedtime fo r 1 week then increase to 60mg dose Last Documented On 3 11:49AM By [facility] ; [facility] DULoxetine HCl 60 MG Oral Capsule Delayed Release Particles 06/06/2023 - 08/01/2023 Provider: SILVIA BOLAND BANQUET COORDINATOR-BC Diagnosis: Low back pain, unspecified 1 capsule daily at bedtime Last Documented On 4 1:33PM By Juana TINEO ; [facility] Diclofenac Sodium 75 MG Oral Tablet Delayed Release 05/30/2023 - 08/01/2023 Provider: MARCELL MCCAIN MD Diagnosis: Last Documented On 4 1:49PM [facility] ; [facility] Gabapentin 300 MG Oral Capsule 05/30/2023 - 08/01/2023 Provider: MARCELL MCCAIN MD Diagnosis: Last Documented On 4 1:49PM By SILVIA BORJAS ; [facility] Ziprasidone HCl 20 MG Oral Capsule 05/22/2023 - 2023 Provider: Diagnosis: Last Documented On 4 1:43PM By SILVIA BORJAS ; [facility] Benztropine Mesylate 0.5 MG Oral Tablet 05/21/2023 - 0 11/05/2023 Provider: Diagnosis: Last Documented On 4 4:03PM By Juana TINEO ; [facility] Cyclobenzaprine HCl 5 MG Ora l Tablet 05/02/2023 - 08/01/2023 Provider: MARCELL MCCAIN MD Diagnosis: Last Documented On 4 1:52PM By SILVIA BORJAS ; [facility] Medications Administered Includes: Administered Medications in patient's chart No Administered Medications Recorded Vital Signs Includes: Vital Signs from 09/01/2023 through 09/01/2024 Vital Name 12/13/2023 01:35P 11/05/2023 04: 04P Blood Pressure Sitting R 126/74 118/64 BP Cuff Size Regular Regular Pulse Rate-Sitting (bpm) 124 124 Temp-Temporal 96.9 Height (in) 69 69 Weight (lb) 175 97.8 Body Mass Index 25.8 14.4 Body Surface Area (m2) 2.0 1.5 Pain Level 9 6 Oxygen Saturation (%) 98 97 Last Documented: On 12/13/2023 1:37PM ; [facility] On 11/05/2023 4:25PM ; [facility] Results Includes: Results from 09/01/2023 through 09/01/2024 No Results Recorded For Specified Dates History of Present Illness History of Present Illness not supported for this document type No History of Present Illness Recorded Social History Description Last Updated Currently 6 children 12/13/2023 Last Documented On 4 2:51PM ; [facility] Not using drugs Using medical marijuana 06/06/2023 Last Documented On 3 12:44PM ; [facility] Current smoker 06/06/2023 Last Documented On 3 12:44PM ; [facility] Difficulty walking 06/06/2023 Last Documented On 3 12:44PM ; [facility] No consumption of alcohol 06/06/2023 Last Documented On 3 12:44PM ; [facility] Smoking packs of cigarettes per day 0 Last Documented On 3 12:44PM ; [facility] Smoking Status Unknown Procedures and Surgical History Includes: Procedures from 09/01/2023 through 09/01/2024 Procedures Code Diagnosis Performing Provider Service Location Service Date CLINIC VISIT T1015 Other spondylosi s, lumbar region, Chronic pain syndrome, Delusional disorders, Low back pain, unspecified ROB PALUMBOPDANNY [facility] 12/13/2023 Last Documented On 4 9:35AM ; [facility] CLINIC VISIT T1015 Other spondylosi s, lumbar region, Low back pain, unspecified, Chronic pain syndrome, Delusional disorders [facility] 11/05/2023 Last Documented On 4 10:50AM ; [facility] Medical History Includes: Medical History in patient's chart Description Last Updated Has had a fall in the last 12 months. Last Documented On 4 4:25PM ; [facility] Please list all illnesses/co nditions you have been diagnosed with: Degenerative Disc Disease ~Kidney Cancer [per patient] ultrasound showed benign cyst? 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 06/06/2023 Last Documented On 3 12:44PM ; [facility] Family History Includes: Family History in patient's chart No Family History Recorded Review of Systems Review of Systems not supported for this document type No Review of Systems Recorded Mental Status No Mental Status Recorded Functional Status No Functional Status Recorded Physical Exam Physical Exam not supported for this document type No Physical Exam Recorded Allergies Includes: Active, inactive, and resolved Allergies Substance Type Reaction Onset Date Resolved Date Statu s Haldol Allergy Dystonia 06/07/2023 Active Last Documented On 4 1:34PM ; [facility] DULoxetine HCl Allergy Seizure 08/01/2023 Acti ve Last Documented On 4 1:34PM ; [facility] Encounters Includes: Encounters from 09/01/2023 through 09/01/2024 Encounter Provider Location Date Check-In Time Check-Out Time Diagnosis PAIN MANAGEMENT FOLLOW UP INDIO PALUMBO [facility] 12/13/19 1:31PM 2:02PM Lumbar Spondylosis,Ch ronic Pain Syndrome,Delus ional Disorder of Unknown (Ollie III) Etiology,Dorso alison Low Back Pain POST PROCEDURE PHONE CALL INDIO PALUMBO 12/06/19 24 11/05/2023 1:28PM 11/05/2023 11:59PM PAIN MANAGEMENT FOLLOW UP INDIO PALUMBO [facility] 11/05/19 3:34PM 4:17PM Chronic Pain Syndrome,Delus ional Disorder of Unknown (Ollie III) Etiology,Dorso alison Low Back Pain,Lumbar Spondylosis Insurance Includes: Active Insurance Policies Plan Name Member ID Group # Subscriber Relationship Effect yulissa Dates 1 - [facility] [id number] MISBAH Marroquin Clinical Notes Includes: Signed Clinical Notes starting from 08/10/2022 * Progress note Date Encounter Last Documented by 12/13/2023 PAIN MANAGEMENT FOLLOW UP Last d ocumented on 12/13/2023; 2:51 PM, SILVIA BOYLE PAPER PATTERN FOLDER-FPA, BANQUET COORDINATOR-BC; [facility] Active Problems & Conditions - [...] in his necklace. 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 He is very cooperative and pleasant. He reports the Diclofenac being somewhat helpful. He does not feel like the Gabapentin has been helpful at all. He needs a refill on the Cyclobenzaprine, this is also helpful for him. He is aware we will not be coming back to [place] but he is ok with seeing us in [place]. He continues his therapy exercises daily and [...] . He also reports of being a [employer] for six years. He states he was discharged five years ago. During his time as a [employer] he reports being captured for two [...] it is at a kidney Center in [place]. I have made several phone calls to [...] that was cancer [per patient] Per Michelle Cantu patient has been diagnosed with delusional disorder, [...] normal. Delusional type of behaviors. Skin: Normal. Summer Set, warm, dry. Tests Educational Testing: Questionnaires PHQ-9: [...] and for adult impression and score eleven; [99249] Established outpatient, medically appropriate H&P, moderate level [...] but may be subject to typographical or peoplesoft business analyst errors. Verify all diagnoses, medications, dosages, and patient instructions with patient and/or the originator of this document. Care Team - MARCELL MCCAIN MD - [facility] - Psychiatric/Mental Health Health Reminders - Assess BMI satisfied 12/13/2023. - Assess Tobacco Use satisfied 12/13/2023. - Depression Screening satisfied 12/13/2023. - Smoking & Tobacco Cessation Intervention and Counseling satisfied 12/13/2023. * Progress note Date Encounter Last Documented by 12/06/2023 POST PROCEDURE PHONE CALL Last d ocumented on 12/06/2023; 1:30 PM, Rosanna Her RN; [facility] Top of Document Post-Procedural Patient Screening Questionnaire Date of Procedure: 12/04/23 Procedure: bilateral L3, L4, L5 MBB (#1) 1. How have you felt since your last procedure? Pain level went down to a 4/10 for several hours after procedure. Improved Same Worse 2. Pain level prior to procedure? /10 3. Pain level currently? 02/28 4. How [...] that was cancer [per patient] Per Michelle Cantu patient has been diagnosed with delusional disorder, [...] MARCELL MCCAIN MD - Primary Care - MICHELLE CANTU, TRINY- - Psychiatric/Mental Health Health Reminders - Assess Tobacco Use satisfied 12/06/2023. * Progress note Date Encounter Last Documented by 11/05/2023 PAIN MANAGEMENT FOLLOW UP Last d ocumented on 11/05/2023; 4:25 PM, SILVIA BOYLE PAPER PATTERN FOLDER-FPA, BANQUET COORDINATOR-BC; [facility] Active Problems & Conditions - Delusional Disorder Chief Complaint The Chief Complaint is: 3 month follow up. patient worried about increase in pain. History of Present Illness PHQ-9 Score: 11 [...] - Last drug screen appropriate N/A Discussion: Patient is here today because he has [...] in his necklace. 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 He is very cooperative and pleasant. He reports the Diclofenac being somewhat helpful. He does not feel like the Gabapentin has been helpful at all. He needs a refill on the Cyclobenzaprine, this is also helpful for him. He is aware we will not be coming back to [place] but he is ok with seeing us in [place]. He continues his therapy exercises daily and [...] . He also reports of being a [employer] for six years. He states he was discharged five years ago. During his time as a [employer] he reports being captured for two [...] it is at a kidney Center in [place]. I have made several phone calls to [...] that was cancer [per patient] Per Michelle Cantu patient has been diagnosed with delusional disorder, [...] than noted. Physical Findings - Vitals taken 11/05/2023 04:04 pm BP-Sitting R 118/64 mmHg BP Cuff Size Regular Pulse Rate-Sitting 124 bpm Height 69 in Weight 97 lbs 12.8 oz Body Mass Index 14.4 kg/m2 Pain Level 6 Pain Level Note low back Oxygen Saturation 97 % Musculoskeletal System: General/bilateral: Musculoskeletal Scales: Value [...] normal. Delusional type of behaviors. Skin: Normal. Summer Set, warm, dry. Tests Educational Testing: Questionnaires PHQ-9: [...] summary provided to patient. Discussed Schedule for MBB. Continue current medications and home exercises. FU after procedure. Failed [...] L4, L5 medial branch blocks under fluoro EndCited Practice Management Use of tobacco assessment performed Review of medications documented; Standardized depression screening: positive for symptoms and for adult impression and score eleven; [02121] Established outpatient, medically appropriate H&P, moderate level [...] but may be subject to typographical or peoplesoft business analyst errors. Verify all diagnoses, medications, dosages, and patient instructions with patient and/or the originator of this document. Care Team - MARCELL MCCAIN MD - [facility] - Psychiatric/Mental Health Health Reminders - Assess BMI satisfied 11/05/2023. - Assess Tobacco Use satisfied 11/05/2023. - Depression Screening satisfied 11/05/2023.
--- OUTSIDE RECORDS SUMMARY | 2024-09-01 15:58 | XMS_ITS | Clinical Summary ---
Author Organization [facility] Address [address] [place] [phone] Phone Care Team Providers Care Lithographic Camera Operator Name Role Phone KALYN GILLESPIE, MARCELL Primary Care Provider [phone] CANTU PMHNP-BC, MICHELLE Unavailable [phone] Reason for Visit and Chief Complaint The Chief Complaint is: 3 month follow up. patient worried about increase in pain Problems Includes: Problems addressed during this encounter and other active Problems All Visits Onset Date Resolved Date Provider Condition S tatus Delusional Disorder Unknown SILVIA Gamez TAMAR SUPERVISOR DITCHING-FPA, OUTBOUND SALES REPRESENTATIVE-BC Active Last Documented On 4 1:59PM ; [facility] Plan of Treatment Pending Tests Order Diagnosis Results Due Ordering Provider Pain Management CPT - Facet Joint Procedur Intraarticular joint/Medial Branch Block L/S 1st Other spondylosis, lumbar region 01/12/24 SILVIA Vera TAMAR SUPERVISOR DITCHING-FPA, OUTBOUND SALES REPRESENTATIVE-BC Last Documented On 4 11:28AM ; [facility] Pain Management CPT - Facet Joint Procedur Intraarticular joint/Medial Branch Block L/S 2nd Other spondylosis, lumbar region 01/12/24 SILVIA Vera TAMAR SUPERVISOR DITCHING-FPA, OUTBOUND SALES REPRESENTATIVE-BC Last Documented On 4 11:28AM ; [facility] Assessments Includes: Assessments from this encounter Findings - [M47.896 - Other spondylosis, lumbar region] Lumbar spondylosis - Last Documented On 11/05/2023 4:25PM ; [facility] - [M54.50 - Low back pain, unspecified] Low back pain - Last Documented On 11/05/2023 4:25PM ; [facility] - [F22 - Delusional disorders] Delusional disorder of unknown (axis III) etiology - Last Documented On 11/05/2023 4:25PM ; [facility] - [G89.4 - Chronic pain syndrome] Chronic pain syndrome - Last Documented On 11/05/2023 4:25PM ; [facility] Medical Equipment - Implanted Devices Includes: Current Devices No Medical Equipment Recorded Medications Includes: Medications discussed during this encounter and other current Medications Discontinued / Stopped on this date MICHELLE PITTS on 07/08/2023 Divalproex Sodium 250 MG Ora l Tablet Delayed Release Provider: MICHELLE PITTS Diagnosis: Last Documented On 4 4:03PM By Juana TINEO ; [facility] Benztropine Mesylate 0.5 MG Oral Tablet P rovider: Diagnosis: Last Documented On 4 4:03PM By Juana TINEO ; [facility] Current Medications (continue as prescribed) Cyclobenzaprine HCl 10 MG Oral Tablet 12/13/2023 Provider: INDIO PALUMBO Diagnosis: Other spondylosi s, lumbar region One tablet three times a day as needed Last Documented On 4 2:08PM By SILVIA BORJAS ; [facility] Cyclobenzaprine HCl 5 MG Ora l Tablet 10/30/2023 Provider: KIMBERLY STEPHENS [facility]Kush Diagnosis: Low back pain, unspecified One tablet three times a day as needed for low back pain Last Documented On 4 4:23PM By SILVIA BORJAS ; [facility] Meloxicam 15 MG Oral Tablet 08/01/2023 Provider: INDIO EASTON Diagnosis: Low back pain, u nspecified One tablet daily with a meal Last Documented On 4 4:23PM By SILVIA BORJAS ; [facility] Famotidine 40 MG Oral Tablet 05/09/2023 Provider: MARCELL MCCAIN MD Diagnosis: Last Documented On 3 12:43PM By SILVIA BORJAS ; [facility] Medications Administered Includes: Administered Medications from this encounter No Administered Medications Recorded Vital Signs Includes: Vital Signs from this encounter Vital Name 11/05/2023 04:04P Blood Pressure Sitting R 118/64 BP Cuff Size Regular Pulse Rate-Sitting (bpm) 124 Height (in) 69 Weight (lb) 97.8 Body Mass Index 14.4 Body Surface Area (m2) 1.5 Pain Level 6 Oxygen Saturation (%) 97 Last Documented: On 11/05/2023 4:25PM ; [facility] Results Includes: Results discussed during [...] in his necklace. 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 He is very cooperative and pleasant. He reports the Diclofenac being somewhat helpful. He does not feel like the Gabapentin has been helpful at all. He needs a refill on the Cyclobenzaprine, this is also helpful for him. He is aware we will not be coming back to [place] but he is ok with seeing us in [place]. He continues his therapy exercises daily and [...] . He also reports of being a [employer] for six years. He states he was discharged five years ago. During his time as a [employer] he reports being captured for two [...] it is at a kidney Center in [place]. I have made several phone calls to [...] and L5-S1 Social History Description Last Updated Not using drugs Using medical marijuana 06/06/2023 Last Documented On 4 3:50PM ; [facility] Current smoker 06/06/2023 Last Documented On 4 3:50PM ; [facility] Difficulty walking 06/06/2023 Last Documented On 4 3:50PM ; [facility] No consumption of alcohol 06/06/2023 Last Documented On 4 3:50PM ; [facility] Smoking packs of cigarettes per day 0 Last Documented On 4 3:50PM ; [facility] Smoking Status Unknown Procedures and Surgical History Includes: Procedures from this encounter Procedures Code Diagnosis Performing Provider Service Location Service Date CLINIC VISIT T1015 Other spondylosi s, lumbar region, Low back pain, unspecified, Chronic pain syndrome, Delusional disorders SILVIA BOYLE SUPERVISOR DITCHING-FPA, OUTBOUND SALES REPRESENTATIVE-BC [facility] 11/05/2023 Last Documented On 4 10:50AM ; [facility] use of tobacco assessment performed 1000F Last Documented On 4 3:50PM ; [facility] review of medications documented 1160F Last Documented On 4 3:50PM ; [facility] screening for adult depression: impressi on and score eleven Last Documented On 4 4:03PM ; [facility] standardized depression screening: posit yulissa for symptoms Last Documented On 4 3:50PM ; [facility] Reviewed & agreed to staff entries. Last Documented On 4 3:50PM ; [facility] Clinical summary provided to patient Last Documented On 4 3:50PM ; [facility] SOAPP-R: total score 12 Last Documented On 4 3:50PM ; [facility] Medical History Includes: Medical History addressed during this encounter Description Last Updated Has had a fall in the last 12 months. Last Documented On 4 4:25PM ; [facility] Please list all illnesses/co nditions [...] tetanus claims 06/07/2023 Last Documented On 4 3:50PM ; [facility] Moderate to severe pain 06/06/2023 Last Documented On 4 3:50PM ; [facility] Physical therapy 06/06/2023 Last Documented On 4 3:50PM ; [facility] Denies a fear of falling. 06/06/2023 Last Documented On 4 3:50PM ; [facility] Family History Includes: Family History addressed during [...] Active Last Documented On 4 1:34PM ; [facility] DULoxetine HCl Allergy Seizure 08/01/2023 Acti ve Last Documented On 4 1:34PM ; [facility] Encounters Encounter Provider Location Date Check-In Time Check-Out Time Diagnosis PAIN MANAGEMENT FOLLOW UP SILVIA CEDILLOLP SUPERVISOR DITCHING-FPA, OUTBOUND SALES REPRESENTATIVE-BC [facility] 11/05/19 24 3:34PM 4:17PM Chronic Pain Syndrome,Delus ional Disorder of Unknown ([place] III) Etiology,Dorso alison Low Back Pain,Lumbar Spondylosis Insurance Includes: Active Insurance Policies Plan Name Member ID Group # Subscriber Relationship Effect yulissa Dates 1 - [facility] PLANS [id number] MISBAH KOROMA Self Clinical Notes Includes: Clinical Notes from this encounter * Progress note Date Encounter Last Documented by 11/05/2023 PAIN MANAGEMENT FOLLOW UP Last d ocumented on 11/05/2023; 4:25 PM, SILVIA CEDILLOLP SUPERVISOR DITCHING-FPA, OUTBOUND SALES REPRESENTATIVE-BC; [facility] Active Problems & Conditions [...] in his necklace. 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 He is very cooperative and pleasant. He reports the Diclofenac being somewhat helpful. He does not feel like the Gabapentin has been helpful at all. He needs a refill on the Cyclobenzaprine, this is also helpful for him. He is aware we will not be coming back to [facility] [place] but he is ok with seeing us in [place]. He continues his therapy exercises daily and [...] . He also reports of being a [employer] for six years. He states he was discharged five years ago. During his time as a [employer] he reports being captured for two [...] it is at a kidney Center in [place]. I have made several phone calls to [...] normal. Delusional type of behaviors. Skin: Normal. [place], warm, dry. Tests Educational Testing: Questionnaires PHQ-9: [...] and for adult impression and score eleven; [05039] Established outpatient, medically appropriate H&P, moderate level [...] but may be subject to typographical or clerical grader errors. Verify all diagnoses, medications, dosages, and patient instructions with patient and/or the originator of this document. Care Team - MARCELL MCCAIN MD - [facility] Psych[facility]/Mental Health Health Reminders - Assess BMI satisfied 11/05/2023. - Assess Tobacco Use satisfied 11/05/2023. - Depression Screening satisfied 11/05/2023.
--- OUTSIDE RECORDS SUMMARY | 2024-09-01 15:58 | XMS_ITS | CONTINUITY OF CARE DOCUMENT ---
Author Name amarjit ocasio Address Unknown Organization [facility] Address [address] [place] [address] Phone [phone] Care Team Providers Care Molten Iron Pourer Name Role Phone Clark Larios MD Unavailable CATHERINE PEREZ MD Unavailable [phone] RAYNA GILLESPIE, DEREK Unavailable INSURANCE PROVIDERS Payer name Policy type / Coverage type [place] [employer] party ID [id number] PAY [id number]
--- OUTSIDE RECORDS SUMMARY | 2024-09-01 15:58 | XMS_ITS | Clinical Summary ---
Author Organization [facility] Address [address] [place] [phone] Phone Care Team Providers Care Strategic Partnership Representative Name Role Phone MARCELL MCCAIN MD Primary Care Provider [phone] ALONDRA PMHNP-BC, SIVAN Unavailable [phone] Reason for Visit and Chief Complaint * PHONE CALL Problems Includes: Problems addressed during this encounter and other active Problems All Visits Onset Date Resolved Date Provider Condition S tatus Delusional Disorder Unknown SILVIA BOYLE NETWORK/TELECOM ENGINEER-FPA, HEAVY LINE TECHNICIAN-BC Active Last Documented On 4 1:59PM ; [facility] Plan of Treatment Pending Tests Order Diagnosis Results Due Ordering Provider Pain Management CPT - Facet Joint Procedur Intraarticular joint/Medial Branch Block L/S 1st Other spondylosis, lumbar region 01/12/24 SILVIA BOYLE NETWORK/TELECOM ENGINEER-FPA, HEAVY LINE TECHNICIAN-BC Last Documented On 4 11:28AM ; [facility] Pain Management CPT - Facet Joint Procedur Intraarticular joint/Medial Branch Block L/S 2nd Other spondylosis, lumbar region 01/12/24 SILVIA BOYLE NETWORK/TELECOM ENGINEER-FPA, HEAVY LINE TECHNICIAN-BC Last Documented On 4 11:28AM ; [facility] Assessments Includes: Assessments from this encounter No Assessments Recorded Medical Equipment - Implanted Devices Includes: Current Devices No Medical Equipment Recorded Medications Includes: Medications discussed during this encounter and other current Medications Discontinued / Stopped on this date SILVIA BOYLE NETWORK/TELECOM ENGINEER-FPA, HEAVY LINE TECHNICIAN-BC on 06/06/2023 DULoxetine HCl 30 MG Oral Capsule Delayed Release Particles Provider: SILVIA BOLAND HEAVY LINE TECHNICIAN-BC Diagnosis: Low back pain, u nspecified Last Documented On 3 11:49AM By SILVIA BOYLE [facility] ; [facility] Current Medications (continue as prescribed) Cyclobenzaprine HCl 10 MG Oral Tablet 12/13/2023 [facility] Diagnosis: Other spondylosi s, lumbar region One tablet three times a day as needed Last Documented On 4 2:08PM By SILVIA BOYLE [facility] ; [facility] Cyclobenzaprine HCl 5 MG Ora l Tablet 10/30/2023 Provider: KIMBERLY STEPHENS [facility] Diagnosis: Low back pain, unspecified One tablet three times a day as needed for low back pain Last Documented On 4 4:23PM By [facility] ; [facility] Meloxicam 15 MG Oral Tablet 08/01/2023 Provider: SILVIA VAN [facility] Diagnosis: Low back pain, u nspecified One tablet daily with a meal Last Documented On 4 4:23PM By SILVIA BOYLE [facility] ; [facility] Famotidine 40 MG Oral Tablet 05/09/2023 Provider: MARCELL MCCAIN MD Diagnosis: Last Documented On 3 12:43PM By SILVIA BOYLE [facility] ; [facility] Medications Administered Includes: Administered Medications from this encounter No Administered Medications Recorded Results Includes: Results discussed during this encounter No Results Recorded For Specified Dates History of Present Illness Includes: History of Present Illness from this encounter No History of Present Illness Recorded Social History Description Last Updated Not using drugs Using medical marijuana 06/06/2023 Last Documented On 3 12:02PM ; [facility] Current smoker 06/06/2023 Last Documented On 3 12:02PM ; [facility] Difficulty walking 06/06/2023 Last Documented On 3 12:02PM ; [facility] No consumption of alcohol 06/06/2023 Last Documented On 3 12:02PM ; [facility] Smoking packs of cigarettes per day 0 Last Documented On 3 12:02PM ; [facility] Smoking Status Unknown Medical History Includes: Medical History addressed during this encounter Description Last Updated Has had no fall in the last 12 months. 0 11/05/2023 Last Documented On 3 12:02PM ; [facility] Please list all illnesses/co nditions you have [...] tetanus claims 06/07/2023 Last Documented On 3 12:02PM ; [facility] Moderate to severe pain 06/06/2023 Last Documented On 3 12:02PM ; [facility] Physical therapy 06/06/2023 Last Documented On 3 12:02PM ; [facility] Denies a fear of falling. 06/06/2023 Last Documented On 3 12:02PM ; [facility] Family History Includes: Family History addressed [...] Active Last Documented On 4 1:34PM ; [facility] DULoxetine HCl Allergy Seizure 08/01/2023 Acti ve Last Documented On 4 1:34PM ; [facility] Encounters Encounter Provider Location Date Check-In Time Check-Out Time Diagnosis * PHONE CALL SILVIAROD BOYLE NETWORK/TELECOM ENGINEER-FPA, HEAVY LINE TECHNICIAN-BC 07/09/2023 12:02PM 11:59PM Insurance Includes: Active Insurance Policies Plan Name Member ID Group # Subscriber Relationship Effect yulissa Dates 1 - [facility] PLANS [id number] MISBAH KOROMA Self Clinical Notes Includes: Clinical Notes from this encounter * Progress note Date Encounter Last Documented by 07/09/2023 * PHONE CALL Last documented on 07/09/2023; 12:52 PM, SILVIA BOYLE NETWORK/TELECOM ENGINEER-FPA, HEAVY LINE TECHNICIAN-BC; [facility] Chief Complaint Phone Call - Chief Concern: reason for call: Pt called and left a vm on my phone line. States that ever since he got the back injections, his back and hurt even worse. States that the pain wont stop and that he cannot bend over. Pt was crying on the phone in pain. pt phone # for return call: Date/Initials: GEOFFREY TINEO. Current Medication - Benztropine Mesylate 0.5 MG Oral Tablet 60 days, 0 refills - Cyclobenzaprine HCl 5 MG Oral Tablet 30 days, 0 refills - Diclofenac Sodium 75 MG Oral Tablet Delayed Release 30 days, 0 refills - DULoxetine HCl 60 MG Oral Capsule Delayed Release Particles 1 capsule daily at bedtime, 30 days, 2 refills - Famotidine 40 MG Oral Tablet 30 days, 0 refills - Gabapentin 300 MG Oral Capsule 30 days, 0 refills - Ziprasidone HCl 20 MG Oral Capsule 60 days, 0 refills Past Medical/Surgical History Reported: [...] using drugs Using medical marijuana. Allergies - Haldol Reaction: Dystonia Plan StartCited - Other PHY ORDER/COMMENT Double check he is taking his Diclofenac, Duloxetine, Cyclobenzaprine, and Gabapentin. He can also utilize Tylenol. If he feels like pain is severe enough that he needs to go to the ER that is an option also. FOllow up as scheduled. EndCited Care Team - MARCELL MCCAIN MD - Primary Care - TRINY BRITO- - Psychiatric/Mental Health Health Reminders - Assess Tobacco Use satisfied 07/09/2023.
[2024-09-01 16:00] VITALS: BP 137/94; PULSE 98; RESP 16; O2SAT 98
[2024-09-01 16:30] VITALS: BP 136/93; PULSE 95; RESP 16; O2SAT 98
[2024-09-01 16:59] LABS: Add Urine Microscopic? NO; Appearance Urine Clear (Clear); Bilirubin Urine Negative (Negative); Blood Urine Negative (Negative); Color Urine Light Yellow (Yellow); Glucose Urine UA Negative (Negative); Ketones Urine Negative (Negative); Leukocyte Esterase Ur Negative LEU/UL (Negative); Nitrate Urine Negative (Negative); Protein Urine Negative (Negative); Specific Grav Ur 1.015 (1.010-1.020); Urobilinogen Urine 0.2 mg/dL (0.2-1.0)
[2024-09-01 17:00] VITALS: BP 136/85; PULSE 97; RESP 17; O2SAT 98
[2024-09-01 17:20] VITALS: BP 132/86; PULSE 92; RESP 16; TEMP 36.8; O2SAT 98
== END 2024-09-01 17:20 | disposition home or self-care (01) ==
PROVIDERS: Emergency Provider Emergency Medicine; PCP Family Medicine
DX: R10.9 Unspecified abdominal pain (principal); F17.210 Nicotine dependence, cigarettes, uncomplicated
CPT/HCPCS: 36415; 74176; 80053; 81003; 85025; 96361; 96374; 96375; 99284; A9270; J1200; J1885; J2405; J2765; J7030

== ENCOUNTER 2024-09-03 06:17 | Emergency (ER) | payer SELFPAY ==
--- NOTE | ~2024-09-03 | XR_ITS ---
Portable chest x-ray Comparison: 11/26/2022 Clinical History: Chest pain Findings: Lungs are clear, without focal consolidation or pleural effusion. Cardiomediastinal silho uette is stable. Bones and soft tissues are unremarkable. Impression: Normal chest. Reviewed, dictated and finalized at [facility]. RD LIBRARIAN Impression: Normal chest.
--- NOTE | ~2024-09-03 | CT_ITS ---
Clinical Indication: Shortness of breath CT Scan of the Chest with Contrast: Technique: Contiguous sections were acquired throughout the chest after intravenous administration of 100 cc of Omnipaque 350. Dose reduction technique was used on this scan by utilizing automated expos ure control and iterative reconstruction technique. The dose-length product (DLP) was 217.96 mGy-cm. COMPARISON: 11/10/2022 Findings: Mildly enlarged bilateral hilar lymph nodes are present, nonspecific. No other mediastinal lymphadeno alison. No axillary lymphadenopathy. There is no filling defect in the pulmonary arterial tree to sugg est pulmonary embolus. There is no evidence of aortic dissection or aneurysm. There is no evidence of pleural or pericardial effusion. The lungs are clear. No pulmonary nodules or infiltrates are noted. Images through the upper abdomen reveal no abnormalities. Impression: No evidence of pulmonary embolus, aortic dissection, or aortic aneurysm. Clear lungs. Mildly enlarged bilateral hilar lymph nodes, nonspecific. Reviewed, dictated and finalized at [facility]. RESEARCH Impression: No evidence of pulmonary embolus, aortic dissection, or aortic aneurysm. Clear lungs. Mildly enlarged bilateral hilar lymph nodes, nonspecific.
[2024-09-03 06:18] VITALS: PULSE 108; RESP 18; TEMP 36.4; O2SAT 99
--- OUTSIDE RECORDS SUMMARY | 2024-09-03 06:19 | XMS_ITS | Clinical Summary ---
Author Organization [facility] Address [address] [place] [phone] Phone Care Team Providers Care Utility Engineer Name Role Phone MARCELL MCCAIN MD Primary Care Provider [phone] ALONDRA PMHNP-BC, SIVAN Unavailable [phone] Reason for Visit and Chief Complaint POST PROCEDURE PHONE CALL Problems Includes: Problems addressed during this encounter and other active Problems All Visits Onset Date Resolved Date Provider Condition S tatus Delusional Disorder Unknown SILVIA BOYLE STOCK CHASER-FPA, CLOTH CUTTING MACHINE OPERATOR-BC Active Last Documented On 4 1:59PM ; [facility] Plan of Treatment Pending Tests Order Diagnosis Results Due Ordering Provider Pain Management CPT - Facet Joint Procedur Intraarticular joint/Medial Branch Block L/S 1st Other spondylosis, lumbar region 01/12/24 SILVIA BOYLE STOCK CHASER-FPA, CLOTH CUTTING MACHINE OPERATOR-BC Last Documented On 4 11:28AM ; [facility] Pain Management CPT - Facet Joint Procedur Intraarticular joint/Medial Branch Block L/S 2nd Other spondylosis, lumbar region 01/12/24 SILVIA BOYLE STOCK CHASER-FPA, CLOTH CUTTING MACHINE OPERATOR-BC Last Documented On 4 11:28AM ; [facility] Assessments Includes: Assessments from this encounter No Assessments Recorded Medical Equipment - Implanted Devices Includes: Current Devices No Medical Equipment Recorded Medications Includes: Medications discussed during this encounter and other current Medications Current Medications (continue as prescribed) Cyclobenzaprine HCl 10 MG Oral Tablet 12/13/2023 Provider: SILVIA BOYLE STOCK CHASER-FPA CLOTH CUTTING MACHINE OPERATOR-BC Diagnosis: Other spondylosi s, lumbar region One tablet three times a day as needed Last Documented On 4 2:08PM By SILVIA BOYLE [facility] ; [facility] Cyclobenzaprine HCl 5 MG Ora l Tablet 10/30/2023 Provider: KIMBERLY STEPHENS [facility]-BC Diagnosis: Low back pain, unspecified One tablet three times a day as needed for low back pain Last Documented On 4 4:23PM By SILVIA BOYLE [facility]- ; [facility] Meloxicam 15 MG Oral Tablet 08/01/2023 Provider: SILVIA VAN, CLOTH CUTTING MACHINE OPERATOR-BC Diagnosis: Low back pain, u nspecified One tablet daily with a meal Last Documented On 4 4:23PM By SILVIA BOYLE [facility] ; [facility] Famotidine 40 MG Oral Tablet 05/09/2023 Provider: MARCELL MCCAIN MD Diagnosis: Last Documented On 3 12:43PM By SILVIA BOYLE [facility] ; [facility] Medications Administered Includes: Administered [...] 06/06/2023 Last Documented On 4 1:28PM ; [facility] Current smoker 06/06/2023 Last Documented On 4 1:28PM ; [facility] Difficulty walking 06/06/2023 Last Documented On 4 1:28PM ; [facility] No consumption of alcohol 06/06/2023 Last Documented On 4 1:28PM ; [facility] Smoking packs of cigarettes per day 0 Last Documented On 4 1:28PM ; [facility] Smoking Status Unknown Medical History Includes: Medical History addressed during this encounter Description Last Updated Has had a fall in the last 12 months. Last Documented On 4 1:28PM ; [facility] Please list all illnesses/co [...] 06/07/2023 Last Documented On 4 1:28PM ; [facility] Moderate to severe pain 06/06/2023 Last Documented On 4 1:28PM ; [facility] Physical therapy 06/06/2023 Last Documented On 4 1:28PM ; [facility] Denies a fear of falling. 06/06/2023 Last Documented On 4 1:28PM ; [facility] Family History Includes: Family [...] Active Last Documented On 4 1:34PM ; [facility] DULoxetine HCl Allergy Seizure 08/01/2023 Acti ve Last Documented On 4 1:34PM ; [facility] Encounters Encounter Provider Location Date Check-In Time Check-Out Time Diagnosis POST PROCEDURE PHONE CALL SILVIA BOYLE STOCK CHASER-FPA, CLOTH CUTTING MACHINE OPERATOR-BC 12/06/2023 1:28PM 11:59PM Insurance Includes: Active Insurance Policies Plan Name Member ID Group # Subscriber Relationship Effect yulissa Dates 1 - [facility] PLANS [id number] MISBAH Marroquin Clinical Notes Includes: Clinical Notes from this encounter * Progress note Date Encounter Last Documented by 12/06/2023 POST PROCEDURE PHONE CALL Last d ocumented on 12/06/2023; 1:30 PM, Rosanna Her RN; [facility] Top of Document Post-Procedural Patient Screening Questionnaire [...]
--- OUTSIDE RECORDS SUMMARY | 2024-09-03 06:19 | XMS_ITS ---
Care Plan - [facility] Created on: September 03, 2024 MISBAH KOROMA : 1990 Sex: Male Author Organization [facility] Address [address] [place] [phone] Phone Care Team Providers Care Collection Supervisor Name Role Phone KALYN GILLESPIE, MARCELL Primary Care Provider [phone] ALONDRA [facility]-, SIVAN Unavailable [phone]
--- OUTSIDE RECORDS SUMMARY | 2024-09-03 06:19 | XMS_ITS | Clinical Summary ---
Author Organization [facility] Address [address] [place] [phone] Phone Care Team Providers Care Lcpc Name Role Phone MARCELL MCCAIN MD Primary Care Provider [phone] ALONDRA PMHNP-BC, SIVAN Unavailable [phone] Reason for Visit and Chief Complaint * PHONE CALL Problems Includes: Problems addressed during this encounter and other active Problems All Visits Onset Date Resolved Date Provider Condition S tatus Delusional Disorder Unknown SILVIA BOYLE MARKETING INTELLIGENCE MANAGER-FPA, BLANKBOOK STITCHING MACHINE OPERATOR-BC Active Last Documented On 4 1:59PM ; [facility] Plan of Treatment Pending Tests Order Diagnosis Results Due Ordering Provider Pain Management CPT - Facet Joint Procedur Intraarticular joint/Medial Branch Block L/S 1st Other spondylosis, lumbar region 01/12/24 SILVIA BOYLE MARKETING INTELLIGENCE MANAGER-FPA, BLANKBOOK STITCHING MACHINE OPERATOR-BC Last Documented On 4 11:28AM ; [facility] Pain Management CPT - Facet Joint Procedur Intraarticular joint/Medial Branch Block L/S 2nd Other spondylosis, lumbar region 01/12/24 SILVIA BOYLE MARKETING INTELLIGENCE MANAGER-FPA, BLANKBOOK STITCHING MACHINE OPERATOR-BC Last Documented On 4 11:28AM ; [facility] Assessments Includes: Assessments from this encounter No Assessments Recorded Medical Equipment - Implanted Devices Includes: Current Devices No Medical Equipment Recorded Medications Includes: Medications discussed during this encounter and other current Medications Discontinued / Stopped on this date SILVIA BOYLE MARKETING INTELLIGENCE MANAGER-FPA, BLANKBOOK STITCHING MACHINE OPERATOR-BC on 06/06/2023 DULoxetine HCl 30 MG Oral Capsule Delayed Release Particles Provider: SILVIA BOLAND BLANKBOOK STITCHING MACHINE OPERATOR-BC Diagnosis: Low back pain, u nspecified Last Documented On 3 11:49AM By SILVIA BOYLE [facility] ; [facility] Current Medications (continue as prescribed) Cyclobenzaprine HCl 10 MG Oral Tablet 12/13/2023 [facility] Diagnosis: Other spondylosi s, lumbar region One tablet three times a day as needed Last Documented On 4 2:08PM By SILVIA BOYLE [facility] ; [facility] Cyclobenzaprine HCl 5 MG Ora l Tablet 10/30/2023 Provider: KIMBERLY STEPHENS [facility] Diagnosis: Low back pain, unspecified One tablet three times a day as needed for low back pain Last Documented On 4 4:23PM By [facility] ; [facility] Meloxicam 15 MG Oral Tablet 08/01/2023 Provider: SILVIA VAN [facility] Diagnosis: Low back pain, u nspecified One tablet daily with a meal Last Documented On 4 4:23PM By SILVIA BOYLE [facility] ; [facility] Famotidine 40 MG Oral Tablet 05/09/2023 Provider: MARCELL MCCAIN MD Diagnosis: Last Documented On 3 12:43PM By SILVIA BOYLE [facility] ; [facility] Medications Administered Includes: Administered Medications from this encounter No Administered Medications Recorded Results Includes: Results discussed during this encounter No Results Recorded For Specified Dates History of Present Illness Includes: History of Present Illness from this encounter No History of Present Illness Recorded Social History Description Last Updated Not using drugs Using medical marijuana 06/06/2023 Last Documented On 3 12:02PM ; [facility] Current smoker 06/06/2023 Last Documented On 3 12:02PM ; [facility] Difficulty walking 06/06/2023 Last Documented On 3 12:02PM ; [facility] No consumption of alcohol 06/06/2023 Last Documented On 3 12:02PM ; [facility] Smoking packs of cigarettes per day 0 Last Documented On 3 12:02PM ; [facility] Smoking Status Unknown Medical History Includes: Medical History addressed during this encounter Description Last Updated Has had no fall in the last 12 months. 0 11/05/2023 Last Documented On 3 12:02PM ; [facility] Please list all illnesses/co nditions you [...] 06/07/2023 Last Documented On 3 12:02PM ; [facility] Moderate to severe pain 06/06/2023 Last Documented On 3 12:02PM ; [facility] Physical therapy 06/06/2023 Last Documented On 3 12:02PM ; [facility] Denies a fear of falling. 06/06/2023 Last Documented On 3 12:02PM ; [facility] Family History Includes: Family History addressed [...] Active Last Documented On 4 1:34PM ; [facility] DULoxetine HCl Allergy Seizure 08/01/2023 Acti ve Last Documented On 4 1:34PM ; [facility] Encounters Encounter Provider Location Date Check-In Time Check-Out Time Diagnosis * PHONE CALL SILVIAROD BOYLE MARKETING INTELLIGENCE MANAGER-FPA, BLANKBOOK STITCHING MACHINE OPERATOR-BC 07/09/2023 12:02PM 11:59PM Insurance Includes: Active Insurance Policies Plan Name Member ID Group # Subscriber Relationship Effect yulissa Dates 1 - [facility] PL[facility] [id number] MISBAH KOROMA Self Clinical Notes Includes: Clinical Notes from this encounter * Progress note Date Encounter Last Documented by 07/09/2023 * PHONE CALL Last documented on 07/09/2023; 12:52 PM, SILVIA BOYLE MARKETING INTELLIGENCE MANAGER-FPA, BLANKBOOK STITCHING MACHINE OPERATOR-BC; [facility] Chief Complaint Phone Call [...]
--- OUTSIDE RECORDS SUMMARY | 2024-09-03 06:19 | XMS_ITS | Clinical Summary ---
Author Organization [facility] Address [address] [place] [phone] Phone Care Team Providers Care Teenage Babysitter Name Role Phone KALYN GILLESPIE, MARCELL Primary Care Provider [phone] ALONDRA PMHNP-BC, SIVAN Unavailable [phone] Reason for Visit and Chief Complaint The Chief Complaint is: Follow up on L5-S1 TFESI 07/04/2023 ~ ~0 and 0 ongoing Problems Includes: Problems addressed during this encounter and other active Problems Current Visit Onset Date Resolved Date Provider Conditio n Status Delusional Disorder Unknown SILVIA Vera TAMAR DIKE SUPERVISOR-FPA, ASSEMBLING FABRICATOR-BC Active Last Documented On 4 1:59PM ; [facility] Plan of Treatment Pending Tests Order Diagnosis Results Due Ordering Provider Pain Management CPT - Facet Joint Procedur Intraarticular joint/Medial Branch Block L/S 1st Other spondylosis, lumbar region 01/12/24 SILVIA Gamez TAMAR DIKE SUPERVISOR-FPA, ASSEMBLING FABRICATOR-BC Last Documented On 4 11:28AM ; [facility] Pain Management CPT - Facet Joint Procedur Intraarticular joint/Medial Branch Block L/S 2nd Other spondylosis, lumbar region 01/12/24 SILVIA Vera TAMAR DIKE SUPERVISOR-FPA, ASSEMBLING FABRICATOR-BC Last Documented On 4 11:28AM ; [facility] Assessments Includes: Assessments from this encounter Findings - [M54.50 - Low back pain, unspecified] Low back pain - Last Documented On 08/01/2023 2:00PM ; [facility] - [M54.16 - Radiculopathy, lumbar region] Lumbar radiculopathy - Last Documented On 08/01/2023 2:00PM ; [facility] - [F22 - Delusional disorders] Delusional disorder of unknown (axis III) etiology - Last Documented On 08/01/2023 2:00PM ; [facility] - [G89.4 - Chronic pain syndrome] Chronic pain syndrome - Last Documented On 08/01/2023 2:00PM ; [facility] Medical Equipment - Implanted Devices Includes: Current Devices No Medical Equipment Recorded Medications Includes: Medications discussed during this encounter and other current Medications Discontinued / Stopped on this date INDIO PALUMBO on 06/06/2023 DULoxetine HCl 60 MG Oral Capsule Delayed Release Particles Provider: INDIO PALUMBO Diagnosis: Low back pain, u nspecified Last Documented On 4 1:33PM By Juana TINEO ; [facility] Diclofenac Sodium 75 MG Oral Tablet Delayed Release Provider: MARCELL MCCAIN MD Diagnosis: Last Documented On 4 1:49PM By SILVIA BORJAS ; [facility] Gabapentin 300 MG Oral Capsule Provider: MARCELL MCCAIN MD Diagnosis: Last Documented On 4 1:49PM By SILVIA BORJAS ; [facility] Ziprasidone HCl 20 MG Oral Capsule Provid er: Diagnosis: Last Documented On 4 1:43PM By SILVIA BORJAS ; [facility] Cyclobenzaprine HCl 5 MG Oral Tablet Prov ider: MARCELL MCCAIN MD Diagnosis: Last Documented On 4 1:52PM By SILVIA BORJAS ; [facility] New / Renewed during this visit INDIO PALUMBO on 08/01/2023 Cyclobenzaprine HCl 5 MG Oral Tablet Provider: INDIO PALUMBO 90 day supply: 270 tablet, 0 refills Diagnosis: Low back pain, unspecified One tablet three times a day as needed for low back pain Pharmacy: [address], [id number] - Last Documented On 4 4:06PM By KIMBERLY BYERS ; [facility] Meloxicam 15 MG Oral Tablet Provider: INDIO EASTON 90 day supply: 90 tablet, 1 refills Diagnosis: Low back pain, unspecified One tablet daily with a meal Pharmacy: [address], [id number] - Last Documented On 4 4:23PM By SILVIA BORJAS ; [facility] Current Medications (continue as prescribed) Cyclobenzaprine HCl 10 MG Oral Tablet 12/13/2023 Provider: INDIO PALUMBO Diagnosis: Other spondylosi s, lumbar region One tablet three times a day as needed Last Documented On 4 2:08PM By SILVIA BORJAS ; [facility] Cyclobenzaprine HCl 5 MG Ora l Tablet 10/30/2023 Provider: KIMBERLY BYERS Diagnosis: Low back pain, unspecified One tablet three times a day as needed for low back pain Last Documented On 4 4:23PM By SILVIA BORJAS ; [facility] Famotidine 40 MG Oral Tablet 05/09/2023 Provider: MARCELL MCCAIN MD Diagnosis: Last Documented On 3 12:43PM By SILVIA BORJAS ; [facility] Medications Administered Includes: Administered [...] 98 Last Documented: On 08/01/2023 1:36PM ; [facility] Results Includes: Results discussed [...] his necklace. 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 He is very cooperative and pleasant. He reports the Diclofenac being somewhat helpful. He does not feel like the Gabapentin has been helpful at all. He needs a refill on the Cyclobenzaprine, this is also helpful for him. He is aware we will not be coming back to [place] but he is ok with seeing us in [place]. He continues his therapy exercises daily and [...] . He also reports of being a [employer] for six years. He states he was discharged five years ago. During his time as a [employer] he reports being captured for two [...] it is at a kidney Center in [place]. I have made several phone calls to [...] 06/06/2023 Last Documented On 4 1:21PM ; [facility] Current smoker 06/06/2023 Last Documented On 4 1:21PM ; [facility] Difficulty walking 06/06/2023 Last Documented On 4 1:21PM ; [facility] No consumption of alcohol 06/06/2023 Last Documented On 4 1:21PM ; [facility] Smoking packs of cigarettes per day 0 Last Documented On 4 1:21PM ; [facility] Smoking Status Unknown Procedures and Surgical History Includes: Procedures from this encounter Procedures Code Diagnosis Performing Provider Service L ocation Service Date use of tobacco assessment performed 1000F Last Documented On 4 1:28PM ; [facility] review of medications documented 1160F Last Documented On 4 1:28PM ; [facility] screening for adult depression: impressi on and score four Last Documented On 4 1:28PM ; [facility] standardized depression screening: posit yulissa for symptoms Last Documented On 4 1:28PM ; [facility] Reviewed & agreed to staff entries. Last Documented On 4 1:28PM ; [facility] Clinical summary provided to patient Last Documented On 4 1:28PM ; [facility] SOAPP-R: total score 12 Last Documented On 4 1:28PM ; [facility] Medical History Includes: Medical History addressed during this encounter Description Last Updated Has had no fall in the last 12 months. 0 11/05/2023 Last Documented On 4 1:21PM ; [facility] Please list all illnesses/co nditions you have been diagnosed with: Degenerative Disc Disease ~Kidney Cancer [per patient] ultrasound showed benign cyst? 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 06/06/2023 Last Documented On 4 1:21PM ; [facility] Family History Includes: Family History addressed during [...] Active Last Documented On 4 1:34PM ; [facility] DULoxetine HCl Allergy Seizure 08/01/2023 Acti ve Last Documented On 4 1:34PM ; [facility] Encounters Encounter Provider Location Date Check-In Time Check-Out Time Diagnosis PAIN MANAGEMENT FOLLOW UP SILVIA Gamez TAMAR DIKE SUPERVISOR-FPA, ASSEMBLING FABRICATOR-BC [facility] ON 08/01/19 24 1:27PM 1:56PM Chronic Pain Syndrome,Delu sional Disorder of Unknown (Kenly III) Etiology,Lumb ar Radiculopathy ,Dorsopathy Low Back Pain Insurance Includes: Active Insurance Policies Plan Name Member ID Group # Subscriber Relationship Effect yulissa Dates 1 - [facility] PLANS [id number] MISBAH KOROMA Self Clinical Notes Includes: Clinical Notes from this encounter * Progress note Date Encounter Last Documented by 08/01/2023 PAIN MANAGEMENT FOLLOW UP Last d ocumented on 08/01/2023; 2:00 PM, SILVIA Gamez TAMAR DIKE SUPERVISOR-FPA, ASSEMBLING FABRICATOR-BC; [facility] Active Problems & Conditions - Delusional Disorder [...] his necklace. 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 He is very cooperative and pleasant. He reports the Diclofenac being somewhat helpful. He does not feel like the Gabapentin has been helpful at all. He needs a refill on the Cyclobenzaprine, this is also helpful for him. He is aware we will not be coming back to [place] but he is ok with seeing us in [place]. He continues his therapy exercises daily and [...] . He also reports of being a [employer] for six years. He states he was discharged five years ago. During his time as a [employer] he reports being captured for two [...] it is at a kidney Center in [place]. I have made several phone calls to [...] normal. Delusional type of behaviors. Skin: Normal. [place], warm, dry. Tests Educational Testing: Questionnaires PHQ-9: [...] and for adult impression and score four; [61676] Established outpatient, medically appropriate H&P, moderate level [...] but may be subject to typographical or coil repair technician errors. Verify all diagnoses, medications, dosages, and patient instructions with patient and/or the originator of this document. Care Team - MARCELL MCCAIN MD - Primary Care - TRINY BRITO- - Psychiatric/Mental Health Health Reminders - Assess BMI satisfied 08/01/2023. - Assess Tobacco Use satisfied 08/01/2023. - Depression Screening satisfied 08/01/2023.
--- NOTE | 2024-09-03 06:20 | ECG_ITS ---
Test Date: 2024-09-03 06:26:43 Measurements Intervals [place] Rate: 104 P: 26 CO: 138 QRS: -58 QRSD: 89 T: 20 QT: 298 QTc: 394 Interpretive Statements SINUS TACHYCARDIA LEFT ANTERIOR FASCICULAR BLOCK ANTEROSEPTAL MYOCARDIAL INFARCTION , OF INDETERMINATE AGE BASELINE ARTIFACT- I, II, III, AVR, AVL, AVF ABNORMAL ECG No previous ECG available for comparison Electronically Signed On 09-03-2024 07:39:31 FASHION EDITOR by Wilfrid Potts D.O.
--- OUTSIDE RECORDS SUMMARY | 2024-09-03 06:20 | XMS_ITS | Clinical Summary ---
Author Organization [facility] Address [address] [place] [phone] Phone Care Team Providers Care Word Processor Name Role Phone KALYN GILLESPIE, MARCELL Primary Care Provider [phone] CANTU PMHNP-BC, MICHELLE Unavailable [phone] Reason for Visit and Chief Complaint The Chief Complaint is: 3 month follow up. patient worried about increase in pain Problems Includes: Problems addressed during this encounter and other active Problems All Visits Onset Date Resolved Date Provider Condition S tatus Delusional Disorder Unknown SILVIA Gamez TAMAR REPAIR DEPARTMENT SUPERVISOR-FPA, AUTOMATIC SILK SCREEN PRINTER-BC Active Last Documented On 4 1:59PM ; [facility] Plan of Treatment Pending Tests Order Diagnosis Results Due Ordering Provider Pain Management CPT - Facet Joint Procedur Intraarticular joint/Medial Branch Block L/S 1st Other spondylosis, lumbar region 01/12/24 SILVIA Vera TAMAR REPAIR DEPARTMENT SUPERVISOR-FPA, AUTOMATIC SILK SCREEN PRINTER-BC Last Documented On 4 11:28AM ; [facility] Pain Management CPT - Facet Joint Procedur Intraarticular joint/Medial Branch Block L/S 2nd Other spondylosis, lumbar region 01/12/24 SILVIA Vera TAMAR REPAIR DEPARTMENT SUPERVISOR-FPA, AUTOMATIC SILK SCREEN PRINTER-BC Last Documented On 4 11:28AM ; [facility] Assessments Includes: Assessments from this encounter Findings - [M47.896 - Other spondylosis, lumbar region] Lumbar spondylosis - Last Documented On 11/05/2023 4:25PM ; [facility] - [M54.50 - Low back pain, unspecified] Low back pain - Last Documented On 11/05/2023 4:25PM ; [facility] - [F22 - Delusional disorders] Delusional disorder of unknown (axis III) etiology - Last Documented On 11/05/2023 4:25PM ; [facility] - [G89.4 - Chronic pain syndrome] Chronic pain syndrome - Last Documented On 11/05/2023 4:25PM ; [facility] Medical Equipment - Implanted Devices Includes: Current Devices No Medical Equipment Recorded Medications Includes: Medications discussed during this encounter and other current Medications Discontinued / Stopped on this date MICHELLE PITTS on 07/08/2023 Divalproex Sodium 250 MG Ora l Tablet Delayed Release Provider: MICHELLE PITTS Diagnosis: Last Documented On 4 4:03PM By Juana TINEO ; [facility] Benztropine Mesylate 0.5 MG Oral Tablet P rovider: Diagnosis: Last Documented On 4 4:03PM By Juana TINEO ; [facility] Current Medications (continue as prescribed) Cyclobenzaprine HCl 10 MG Oral Tablet 12/13/2023 Provider: INDIO PALUMBO Diagnosis: Other spondylosi s, lumbar region One tablet three times a day as needed Last Documented On 4 2:08PM By SILVIA BORJAS ; [facility] Cyclobenzaprine HCl 5 MG Ora l Tablet 10/30/2023 Provider: [facility]LY [facility] Diagnosis: Low back pain, unspecified One tablet three times a day as needed for low back pain Last Documented On 4 4:23PM By SILVIA BORJAS ; [facility] Meloxicam 15 MG Oral Tablet 08/01/2023 Provider: INDIO EASTON Diagnosis: Low back pain, u nspecified One tablet daily with a meal Last Documented On 4 4:23PM By SILVIA BORJAS ; [facility] Famotidine 40 MG Oral Tablet 05/09/2023 Provider: MARCELL MCCAIN MD Diagnosis: Last Documented On 3 12:43PM By SILVIA BORAJS ; [facility] Medications Administered Includes: [...] 97 Last Documented: On 11/05/2023 4:25PM ; [facility] Results Includes: Results [...] in his necklace. 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 He is very cooperative and pleasant. He reports the Diclofenac being somewhat helpful. He does not feel like the Gabapentin has been helpful at all. He needs a refill on the Cyclobenzaprine, this is also helpful for him. He is aware we will not be coming back to [place] but he is ok with seeing us in [place]. He continues his therapy exercises daily and [...] . He also reports of being a [employer] for six years. He states he was discharged five years ago. During his time as a [employer] he reports being captured for two [...] it is at a kidney Center in [place]. I have made several phone calls to [...] 06/06/2023 Last Documented On 4 3:50PM ; [facility] Current smoker 06/06/2023 Last Documented On 4 3:50PM ; [facility] Difficulty walking 06/06/2023 Last Documented On 4 3:50PM ; [facility] No consumption of alcohol 06/06/2023 Last Documented On 4 3:50PM ; [facility] Smoking packs of cigarettes per day 0 Last Documented On 4 3:50PM ; [facility] Smoking Status Unknown Procedures and Surgical History Includes: Procedures from this encounter Procedures Code Diagnosis Performing Provider Service Location Service Date CLINIC VISIT T1015 Other spondylosi s, lumbar region, Low back pain, unspecified, Chronic pain syndrome, Delusional disorders SILVIA BOYLE REPAIR DEPARTMENT SUPERVISOR-FPA, AUTOMATIC SILK SCREEN PRINTER-BC [facility] 11/05/2023 Last Documented On 4 10:50AM ; [facility] use of tobacco assessment performed 1000F Last Documented On 4 3:50PM ; [facility] review of medications documented 1160F Last Documented On 4 3:50PM ; [facility] screening for adult depression: impressi on and score eleven Last Documented On 4 4:03PM ; [facility] standardized depression screening: posit yulissa for symptoms Last Documented On 4 3:50PM ; [facility] Reviewed & agreed to staff entries. Last Documented On 4 3:50PM ; [facility] Clinical summary provided to patient Last Documented On 4 3:50PM ; [facility] SOAPP-R: total score 12 Last Documented On 4 3:50PM ; [facility] Medical History Includes: Medical History addressed during this encounter Description Last Updated Has had a fall in the last 12 months. Last Documented On 4 4:25PM ; [facility] Please list all [...] 06/07/2023 Last Documented On 4 3:50PM ; [facility] Moderate to severe pain 06/06/2023 Last Documented On 4 3:50PM ; [facility] Physical therapy 06/06/2023 Last Documented On 4 3:50PM ; [facility] Denies a fear of falling. 06/06/2023 Last Documented On 4 3:50PM ; [facility] Family History Includes: Family [...] Active Last Documented On 4 1:34PM ; [facility] DULoxetine HCl Allergy Seizure 08/01/2023 Acti ve Last Documented On 4 1:34PM ; [facility] Encounters Encounter Provider Location Date Check-In Time Check-Out Time Diagnosis PAIN MANAGEMENT FOLLOW UP SILVIA CEDILLOLP REPAIR DEPARTMENT SUPERVISOR-FPA, AUTOMATIC SILK SCREEN PRINTER-BC [facility] 11/05/19 24 3:34PM 4:17PM Chronic Pain Syndrome,Delus ional Disorder of Unknown ([place] III) Etiology,Dorso alison Low Back Pain,Lumbar Spondylosis Insurance Includes: Active Insurance Policies Plan Name Member ID Group # Subscriber Relationship Effect yulissa Dates 1 - [facility] PLANS [id number] MISBAH KOROMA Self Clinical Notes Includes: Clinical Notes from this encounter * Progress note Date Encounter Last Documented by 11/05/2023 PAIN MANAGEMENT FOLLOW UP Last d ocumented on 11/05/2023; 4:25 PM, SILVIA CEDILLOLP REPAIR DEPARTMENT SUPERVISOR-FPA, AUTOMATIC SILK SCREEN PRINTER-BC; [facility] Active Problems & [...] in his necklace. 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 He is very cooperative and pleasant. He reports the Diclofenac being somewhat helpful. He does not feel like the Gabapentin has been helpful at all. He needs a refill on the Cyclobenzaprine, this is also helpful for him. He is aware we will not be coming back to [place] but he is ok with seeing us in [place]. He continues his therapy exercises daily and [...] . He also reports of being a [employer] for six years. He states he was discharged five years ago. During his time as a [employer] he reports being captured for two [...] it is at a kidney Center in [place]. I have made several phone calls to [...] normal. Delusional type of behaviors. Skin: Normal. [place], warm, dry. Tests Educational Testing: Questionnaires PHQ-9: [...] and for adult impression and score eleven; [40005] Established outpatient, medically appropriate H&P, moderate level [...] but may be subject to typographical or grade recorder errors. Verify all diagnoses, medications, dosages, and patient instructions with patient and/or the originator of this document. Care Team - MARCELL MCCAIN MD - [facility] - Psychiatric/Mental Health Health Reminders - Assess BMI satisfied 11/05/2023. - Assess Tobacco Use satisfied 11/05/2023. - Depression Screening satisfied 11/05/2023.
--- OUTSIDE RECORDS SUMMARY | 2024-09-03 06:20 | XMS_ITS | Clinical Summary ---
Author Organization [facility] Address [address] [place] [phone] Phone Care Team Providers Care Mediator Name Role Phone KALYN GILLESPIE, MARCELL Primary Care Provider [phone] ALONDRA PMHNP-BC, MICHELLE Unavailable [phone] Reason for Visit and Chief Complaint The Chief Complaint is: Follow up BLT L3-5 MBB #1 ~80% - 0 ongoing Problems Includes: Problems addressed during this encounter and other active Problems All Visits Onset Date Resolved Date Provider Condition S tatus Delusional Disorder Unknown SILVIA Gamez TAMAR B2B SALES PROFESSIONAL-FPA, LOAN SPECIALIST-BC Active Last Documented On 4 1:59PM ; [facility] Plan of Treatment Pending Tests Order Diagnosis Results Due Ordering Provider Pain Management CPT - Facet Joint Procedur Intraarticular joint/Medial Branch Block L/S 1st Other spondylosis, lumbar region 01/12/24 SILVIA Gamez TAMAR B2B SALES PROFESSIONAL-FPA, LOAN SPECIALIST-BC Last Documented On 4 11:28AM ; [facility] Pain Management CPT - Facet Joint Procedur Intraarticular joint/Medial Branch Block L/S 2nd Other spondylosis, lumbar region 01/12/24 SILVIA Vera TAMAR B2B SALES PROFESSIONAL-FPA, LOAN SPECIALIST-BC Last Documented On 4 11:28AM ; [facility] Instructions to patient Intervention and counseling on cessation of tobacco use : Patient recieved smoking cessation handout Last Documented On 4 1:32PM ; [facility] Assessments Includes: Assessments from this encounter Findings - [M47.896 - Other spondylosis, lumbar region] Lumbar spondylosis - Last Documented On 12/13/2023 2:51PM ; [facility] - [M54.50 - Low back pain, unspecified] Low back pain - Last Documented On 12/13/2023 2:51PM ; [facility] - [F22 - Delusional disorders] Delusional disorder of unknown (axis III) etiology - Last Documented On 12/13/2023 2:51PM ; [facility] - [G89.4 - Chronic pain syndrome] Chronic pain syndrome - Last Documented On 12/13/2023 2:51PM ; [facility] Instructions Includes: Instructions from this encounter Instructions to patient Intervention and counseling on cessation of tobacco use : Patient recieved smoking cessation handout Last Documented On 1:32PM ; [facility] Medical Equipment - Implanted Devices [...] times a day as needed Pharmacy : [address], [phone] - Last Documented On 4 2:08PM By SILVIA BORJAS ; [facility] Current Medications (continue as prescribed) Cyclobenzaprine HCl 5 MG Ora l Tablet 10/30/2023 Provider: KIMBERLY BYERS Diagnosis: Low back pain, unspecified One tablet three times a day as needed for low back pain Last Documented On 4 4:23PM By SILVIA BORJAS ; [facility] Meloxicam 15 MG Oral Tablet 08/01/2023 Provider: INDIO EASTON Diagnosis: Low back pain, u nspecified One tablet daily with a meal Last Documented On 4 4:23PM By SILVIA BORJAS ; [facility] Famotidine 40 MG Oral Tablet 05/09/2023 Provider: MARCELL MCCAIN MD Diagnosis: Last Documented On 12:43PM By SILVIA BOYLE LOAN SPECIALIST- ; [facility] Medications Administered Includes: Administered Medications [...] 98 Last Documented: On 12/13/2023 1:37PM ; [facility] Results Includes: Results discussed during [...] in his necklace. 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 He is very cooperative and pleasant. He reports the Diclofenac being somewhat helpful. He does not feel like the Gabapentin has been helpful at all. He needs a refill on the Cyclobenzaprine, this is also helpful for him. He is aware we will not be coming back to [place] but he is ok with seeing us in [place]. He continues his therapy exercises daily and [...] . He also reports of being a [employer] for six years. He states he was discharged five years ago. During his time as a [employer] he reports being captured for two [...] is at a kidney Center in [place]. I have made several phone calls to [...] 12/13/2023 Last Documented On 4 2:51PM ; [facility] Not using drugs Using medical marijuana 06/06/2023 Last Documented On 4 1:32PM ; [facility] Current smoker 06/06/2023 Last Documented On 4 1:32PM ; [facility] Difficulty walking 06/06/2023 Last Documented On 4 1:32PM ; [facility] No consumption of alcohol 06/06/2023 Last Documented On 4 1:32PM ; [facility] Smoking packs of cigarettes per day 0 Last Documented On 4 1:32PM ; [facility] Smoking Status Unknown Procedures and Surgical History Includes: Procedures from this encounter Procedures Code Diagnosis Performing Provider Service Location Service Date CLINIC VISIT T1015 Other spondylosi s, lumbar region, Chronic pain syndrome, Delusional disorders, Low back pain, unspecified SILVIA BOYLE B2B SALES PROFESSIONAL-FPA, LOAN SPECIALIST-BC [facility] 12/13/2023 Last Documented On 4 9:35AM ; [facility] intervention and counseling on cessation of tobacco use : Patient recieved smoking cessation handout 4000F Last Documented On 4 1:32PM ; [facility] use of tobacco assessment performed 1000F Last Documented On 4 1:32PM ; [facility] review of medications documented 1160F Last Documented On 4 1:32PM ; [facility] screening for adult depression: impressi on and score eleven Last Documented On 4 1:32PM ; [facility] standardized depression screening: posit yulissa for symptoms Last Documented On 4 1:32PM ; [facility] Reviewed & agreed to staff entries. Last Documented On 4 1:32PM ; [facility] Clinical summary provided to patient Last Documented On 4 1:32PM ; [facility] SOAPP-R: total score 12 Last Documented On 4 1:32PM ; [facility] Medical History Includes: Medical History addressed during this encounter Description Last Updated Has had a fall in the last 12 months. Last Documented On 4 1:32PM ; [facility] Please list all illnesses/co nditions [...] 06/07/2023 Last Documented On 4 1:32PM ; [facility] Moderate to severe pain 06/06/2023 Last Documented On 4 1:32PM ; [facility] Physical therapy 06/06/2023 Last Documented On 4 1:32PM ; [facility] Denies a fear of falling. 06/06/2023 Last Documented On 4 1:32PM ; [facility] Family History Includes: Family History [...] Active Last Documented On 4 1:34PM ; [facility] DULoxetine HCl Allergy Seizure 08/01/2023 Acti ve Last Documented On 4 1:34PM ; [facility] Encounters Encounter Provider Location Date Check-In Time Check-Out Time Diagnosis PAIN MANAGEMENT FOLLOW UP SILVIA BOYLE APRN-[place], LOAN SPECIALIST-BC [facility] 12/13/19 24 1:31PM 2:02PM Lumbar Spondylosis,C hronic Pain Syndrome,Delu sional Disorder of Unknown ([place] III) Etiology,Dors opathy Low Back Pain Insurance Includes: Active Insurance Policies Plan Name Member ID Group # Subscriber Relationship Effect yulissa Dates 1 - [facility] PL[employer] [id number] MISBAH CHANDIUS Self Clinical Notes Includes: Clinical Notes from this encounter * Progress note Date Encounter Last Documented by 12/13/2023 PAIN MANAGEMENT FOLLOW UP Last d ocumented on 12/13/2023; 2:51 PM, SILVIA BOYLE APRN-[place], LOAN SPECIALIST-BC; [facility] Active Problems & Conditions - [...] in his necklace. 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 He is very cooperative and pleasant. He reports the Diclofenac being somewhat helpful. He does not feel like the Gabapentin has been helpful at all. He needs a refill on the Cyclobenzaprine, this is also helpful for him. He is aware we will not be coming back to [place] but he is ok with seeing us in [place]. He continues his therapy exercises daily and [...] . He also reports of being a [employer] for six years. He states he was discharged five years ago. During his time as a [employer] he reports being captured for two [...] is at a kidney Center in [place]. I have made several phone calls to [...] normal. Delusional type of behaviors. Skin: Normal. [place], warm, dry. Tests Educational Testing: Questionnaires PHQ-9: [...] and for adult impression and score eleven; [91544] Established outpatient, medically appropriate H&P, moderate level [...] but may be subject to typographical or cmm operator errors. Verify all diagnoses, medications, dosages, and patient instructions with patient and/or the originator of this document. Care Team - MARCELL MCCAIN MD - [facility] - Psychiatric/Mental Health Health Reminders - Assess BMI satisfied 12/13/2023. - Assess Tobacco Use satisfied 12/13/2023. - Depression Screening satisfied 12/13/2023. - Smoking & Tobacco Cessation Intervention and Counseling satisfied 12/13/2023.
--- OUTSIDE RECORDS SUMMARY | 2024-09-03 06:20 | XMS_ITS ---
Author Organization [facility] Address [address] [place] [phone] Phone Care Team Providers Care Logging Crew Supervisor Name Role Phone KALYN GILLESPIE, MARCELL Primary Care Provider [phone] CANTU PMHNP-BC, MICHELLE Unavailable [phone] Problems Includes: Active, inactive, and resolved Problems All Visits Onset Date Resolved Date Provider Condition S tatus Delusional Disorder Unknown SILVIA BOYLE ASSISTANT QUALITY MANAGER-FPA, DIPLOMA PHARMACY TECHNICIAN-BC Active Last Documented On 4 1:59PM ; [facility] Plan of Treatment Pending Tests Order Diagnosis Results Due Ordering Provider Pain Management CPT - Facet Joint Procedur Intraarticular joint/Medial Branch Block L/S 1st Other spondylosis, lumbar region 01/12/24 SILVIA BOYLE ASSISTANT QUALITY MANAGER-FPA, DIPLOMA PHARMACY TECHNICIAN-BC Last Documented On 4 11:28AM ; [facility] Pain Management CPT - Facet Joint Procedur Intraarticular joint/Medial Branch Block L/S 2nd Other spondylosis, lumbar region 01/12/24 SILVIA BOYLE ASSISTANT QUALITY MANAGER-FPA, DIPLOMA PHARMACY TECHNICIAN-BC Last Documented On 4 11:28AM ; [facility] Instructions to patient Intervention and counseling on cessation of tobacco use : Patient recieved smoking cessation handout Last Documented On 4 1:32PM ; [facility] Assessments Includes: Assessments for all patient encounters Findings Encounter Date Chronic pain syndrome PAIN MANAGEMENT FO LLOW UP with SILVIA BOYLE ASSISTANT QUALITY MANAGER-FPA, DIPLOMA PHARMACY TECHNICIAN-BC 12/13/2023 Last Documented On 4 2:51PM ; [facility] Delusional disorder of unkno wn (axis III) etiology PAIN MANAGEMENT FOLLOW UP with SILVIA Vera TAMAR ASSISTANT QUALITY MANAGER-FPA, DIPLOMA PHARMACY TECHNICIAN-BC 12/13/2023 Last Documented On 4 2:51PM ; [facility] Low back pain PAIN MANAGEMENT FOLL OW UP with SILVIA Vera TAMAR ASSISTANT QUALITY MANAGER-FPA, DIPLOMA PHARMACY TECHNICIAN-BC 12/13/2023 Last Documented On 4 2:51PM ; [facility] Lumbar spondylosis PAIN MANAGEMENT FOLL OW UP with SILVIA Vera ATMAR ASSISTANT QUALITY MANAGER-FPA, DIPLOMA PHARMACY TECHNICIAN-BC 12/13/2023 Last Documented On 4 2:51PM ; [facility] Chronic pain syndrome PAIN MANAGEMENT FO LLOW UP with SILVIA Vera TAMAR ASSISTANT QUALITY MANAGER-FPA, DIPLOMA PHARMACY TECHNICIAN-BC 11/05/2023 Last Documented On 4 4:25PM ; [facility] Delusional disorder of unkno wn (axis III) etiology PAIN MANAGEMENT FOLLOW UP with SILVIA Gamez TAMAR ASSISTANT QUALITY MANAGER-FPA, DIPLOMA PHARMACY TECHNICIAN-BC 11/05/2023 Last Documented On 4 4:25PM ; [facility] Low back pain PAIN MANAGEMENT FOLL OW UP with SILVIA Vera TAMAR ASSISTANT QUALITY MANAGER-FPA, DIPLOMA PHARMACY TECHNICIAN-BC 11/05/2023 Last Documented On 4 4:25PM ; [facility] Lumbar spondylosis PAIN MANAGEMENT FOLL OW UP with SILVIA Vera TAMAR ASSISTANT QUALITY MANAGER-FPA, DIPLOMA PHARMACY TECHNICIAN-BC 11/05/2023 Last Documented On 4 4:25PM ; [facility] Chronic pain syndrome PAIN MANAGEMENT FO LLOW UP with SILVIA Vera TAMAR ASSISTANT QUALITY MANAGER-FPA, DIPLOMA PHARMACY TECHNICIAN-BC 08/01/2023 Last Documented On 4 2:00PM ; [facility] Delusional disorder of unkno wn (axis III) etiology PAIN MANAGEMENT FOLLOW UP with SILVIA G TAMAR ASSISTANT QUALITY MANAGER-FPA, DIPLOMA PHARMACY TECHNICIAN-BC 08/01/2023 Last Documented On 4 2:00PM ; [facility] Low back pain PAIN MANAGEMENT FOLL OW UP with SILVIA G TAMAR ASSISTANT QUALITY MANAGER-FPA, DIPLOMA PHARMACY TECHNICIAN-BC 08/01/2023 Last Documented On 4 2:00PM ; [facility] Lumbar radiculopathy PAIN MANAGEMENT FOL LOW UP with SILVIA BOYLE APRN-FPA, DIPLOMA PHARMACY TECHNICIAN-BC 08/01/2023 Last Documented On 4 2:00PM ; [facility] Chronic pain syndrome PAIN MANAGEMENT NE W CONSULT with SILVIA BOYLE ASSISTANT QUALITY MANAGER-FPA, DIPLOMA PHARMACY TECHNICIAN-BC 06/06/2023 Last Documented On 3 12:44PM ; [facility] Delusional disorder of unkno wn (axis III) etiology PAIN MANAGEMENT NEW CONSULT with SILVIA BOYLE ASSISTANT QUALITY MANAGER-FPA, DIPLOMA PHARMACY TECHNICIAN-BC 06/06/2023 Last Documented On 3 12:44PM ; [facility] Low back pain PAIN MANAGEMENT NEW CONSULT with SILVIA BOYLE ASSISTANT QUALITY MANAGER-FPA, DIPLOMA PHARMACY TECHNICIAN-BC 06/06/2023 Last Documented On 3 12:44PM ; [facility] Lumbar radiculopathy PAIN MANAGEMENT NEW CONSULT with SILVIA BOYLE ASSISTANT QUALITY MANAGER-FPA, DIPLOMA PHARMACY TECHNICIAN-BC 06/06/2023 Last Documented On 3 12:44PM ; [facility] Instructions Includes: Instructions for all patient encounters Instructions to patient Intervention and counseling on cessation of tobacco use : Patient recieved smoking cessation handout Last Documented On 4 1:32PM ; [facility] Medical Equipment - Implanted Devices Includes: Current and historical Devices No Medical Equipment Recorded Medications Includes: Current and historical Medications Current Medications (continue as prescribed) Cyclobenzaprine HCl 10 MG Oral Tablet 12/13/2023 Provider: INDIO PALUMBO Diagnosis: Other spondylosi s, lumbar region One tablet three times a day as needed Last Documented On 4 2:08PM By SILVIA BORJAS ; [facility] Cyclobenzaprine HCl 5 MG Ora l Tablet 10/30/2023 Provider: KIMBERLY BYERS Diagnosis: Low back pain, unspecified One tablet three times a day as needed for low back pain Last Documented On 4 4:23PM By SILVIA BORJAS ; [facility] Meloxicam 15 MG Oral Tablet 08/01/2023 Provider: SILVIA BOYLE APRN- CODY VAN-BC Diagnosis: Low back pain, u nspecified One tablet daily with a meal Last Documented On 4 4:23PM By SILVIA ROSS- ; [facility] Famotidine 40 MG Oral Tablet 05/09/2023 Provider: MARCELL MCCAIN MD Diagnosis: Last Documented On 3 12:43PM [facility] ; [facility] Past Medications on file Cyclobenzaprine HCl 5 MG Oral Tablet 08/01/2023 - 10/30/2023 Provider: SILVIA BOLAND DIPLOMA PHARMACY TECHNICIAN-BC Diagnosis: Low back pain, unspecified One tablet three times a day as needed for low back pain Last Documented On 4 4:06PM By KIMBERLY [facility] ; [facility] Divalproex Sodium 250 MG Ora l Tablet Delayed Release 07/08/2023 - 11/05/2023 Provider: MICHELLE FLORES HNP-BC Diagnosis: Last Documented On 4 4:03PM By Juana TINEO ; [facility] DULoxetine HCl 30 MG Oral Capsule Delayed Release Particles 06/06/2023 - 07/09/2023 Provider: SILVIA BOLAND DIPLOMA PHARMACY TECHNICIAN-BC Diagnosis: Low back pain, unspecified take 1 capsule at bedtime fo r 1 week then increase to 60mg dose Last Documented On 3 11:49AM [facility] ; [facility] DULoxetine HCl 60 MG Oral Capsule Delayed Release Particles 06/06/2023 - 08/01/2023 Provider: SILVIA BOLAND DIPLOMA PHARMACY TECHNICIAN-BC Diagnosis: Low back pain, unspecified 1 capsule daily at bedtime Last Documented On 4 1:33PM By Juana TINEO ; [facility] Diclofenac Sodium 75 MG Oral Tablet Delayed Release 05/30/2023 - 08/01/2023 Provider: MARCELL MCCAIN MD Diagnosis: Last Documented On 4 1:49PM [facility] ; [facility] Gabapentin 300 MG Oral Capsule 05/30/2023 - 08/01/2023 Provider: MARCELL MCCAIN MD Diagnosis: Last Documented On 4 1:49PM By SILVIA BORJAS ; [facility] Ziprasidone HCl 20 MG Oral Capsule 05/22/2023 - 2023 Provider: Diagnosis: Last Documented On 4 1:43PM By SILVIA BORJAS ; [facility] Benztropine Mesylate 0.5 MG Oral Tablet 05/21/2023 - 0 11/05/2023 Provider: Diagnosis: Last Documented On 4 4:03PM By Juana TINEO ; [facility] Cyclobenzaprine HCl 5 MG Ora l Tablet 05/02/2023 - 08/01/2023 Provider: MARCELL MCCAIN MD Diagnosis: Last Documented On 4 1:52PM By SILVIA BORJAS ; [facility] Medications Administered Includes: Administered Medications in patient's chart No Administered Medications Recorded Vital Signs Includes: Vital Signs from 09/03/2023 through 09/03/2024 Vital Name 12/13/2023 01:35P 11/05/2023 04: 04P Blood Pressure Sitting R 126/74 118/64 BP Cuff Size Regular Regular Pulse Rate-Sitting (bpm) 124 124 Temp-Temporal 96.9 Height (in) 69 69 Weight (lb) 175 97.8 Body Mass Index 25.8 14.4 Body Surface Area (m2) 2.0 1.5 Pain Level 9 6 Oxygen Saturation (%) 98 97 Last Documented: On 12/13/2023 1:37PM ; [facility] On 11/05/2023 4:25PM ; [facility] Results Includes: Results from 09/03/2023 through 09/03/2024 No Results Recorded For Specified Dates History of Present Illness History of Present Illness not supported for this document type No History of Present Illness Recorded Social History Description Last Updated Currently 6 children 12/13/2023 Last Documented On 4 2:51PM ; [facility] Not using drugs Using medical marijuana 06/06/2023 Last Documented On 3 12:44PM ; [facility] Current smoker 06/06/2023 Last Documented On 3 12:44PM ; [facility] Difficulty walking 06/06/2023 Last Documented On 3 12:44PM ; [facility] No consumption of alcohol 06/06/2023 Last Documented On 3 12:44PM ; [facility] Smoking packs of cigarettes per day 0 Last Documented On 3 12:44PM ; [facility] Smoking Status Unknown Procedures and Surgical History Includes: Procedures from 09/03/2023 through 09/03/2024 Procedures Code Diagnosis Performing Provider Service Location Service Date CLINIC VISIT T1015 Other spondylosi s, lumbar region, Chronic pain syndrome, Delusional disorders, Low back pain, unspecified ROB [facility]UMBOPDANNY [facility] 12/13/2023 Last Documented On 4 9:35AM ; [facility] CLINIC VISIT T1015 Other spondylosi s, lumbar region, Low back pain, unspecified, Chronic pain syndrome, Delusional disorders [facility] 11/05/2023 Last Documented On 4 10:50AM ; [facility] Medical History Includes: Medical History in patient's chart Description Last Updated Has had a fall in the last 12 months. Last Documented On 4 4:25PM ; [facility] Please list all illnesses/co nditions you [...] 06/07/2023 Last Documented On 3 12:44PM ; [facility] Moderate to severe pain 06/06/2023 Last Documented On 3 12:44PM ; [facility] Physical therapy 06/06/2023 Last Documented On 3 12:44PM ; [facility] Denies a fear of falling. 06/06/2023 Last Documented On 3 12:44PM ; [facility] Family History Includes: Family History in [...] Last Documented On 4 1:34PM ; [facility] DULoxetine HCl Allergy Seizure 08/01/2023 Acti ve Last Documented On 4 1:34PM ; [facility] Encounters Includes: Encounters from 09/03/2023 through 09/03/2024 Encounter Provider Location Date Check-In Time Check-Out Time Diagnosis PAIN MANAGEMENT FOLLOW UP INDIO PALUMBO [facility] 12/13/19 1:31PM 2:02PM Lumbar Spondylosis,Ch ronic Pain Syndrome,Delus ional Disorder of Unknown (Bearden III) Etiology,Dorso alison Low Back Pain POST PROCEDURE PHONE CALL INDIO PALUMBO 12/06/19 24 11/05/2023 1:28PM 11/05/2023 11:59PM PAIN MANAGEMENT FOLLOW UP INDIO PALUMBO [facility] 11/05/19 3:34PM 4:17PM Chronic Pain Syndrome,Delus ional Disorder of Unknown (Bearden III) Etiology,Dorso alison Low Back Pain,Lumbar Spondylosis Insurance Includes: Active Insurance Policies Plan Name Member ID Group # Subscriber Relationship Effect yulissa Dates 1 - [facility] [id number] MISBAH Marroquin Clinical Notes Includes: Signed Clinical Notes starting from 08/10/2022 * Progress note Date Encounter Last Documented by 12/13/2023 PAIN MANAGEMENT FOLLOW UP Last d ocumented on 12/13/2023; 2:51 PM, SILVIA BOYLE ASSISTANT QUALITY MANAGER-FPA, DIPLOMA PHARMACY TECHNICIAN-BC; [facility] Active Problems & [...] in his necklace. 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 He is very cooperative and pleasant. He reports the Diclofenac being somewhat helpful. He does not feel like the Gabapentin has been helpful at all. He needs a refill on the Cyclobenzaprine, this is also helpful for him. He is aware we will not be coming back to [place] but he is ok with seeing us in [place]. He continues his therapy exercises daily and [...] . He also reports of being a [employer] for six years. He states he was discharged five years ago. During his time as a [employer] he reports being captured for two [...] it is at a kidney Center in [place]. I have made several phone calls to [...] normal. Delusional type of behaviors. Skin: Normal. [place], warm, dry. Tests Educational Testing: Questionnaires PHQ-9: [...] and for adult impression and score eleven; [74175] Established outpatient, medically appropriate H&P, moderate level [...] but may be subject to typographical or software development engineer errors. Verify all diagnoses, medications, dosages, and patient instructions with patient and/or the originator of this document. Care Team - MARCELL MCCAIN MD - [facility] Psychiatric/Mental Health Health Reminders - Assess BMI satisfied 12/13/2023. - Assess Tobacco Use satisfied 12/13/2023. - Depression Screening satisfied 12/13/2023. - Smoking & Tobacco Cessation Intervention and Counseling satisfied 12/13/2023. * Progress note Date Encounter Last Documented by 12/06/2023 POST PROCEDURE PHONE CALL Last d ocumented on 12/06/2023; 1:30 PM, Rosanna Her RN; [facility] Top of Document Post-Procedural [...] ocumented on 11/05/2023; 4:25 PM, SILVIA BOYLE ASSISTANT QUALITY MANAGER-FPA, DIPLOMA PHARMACY TECHNICIAN-BC; [facility] Active Problems & [...] in his necklace. 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 He is very cooperative and pleasant. He reports the Diclofenac being somewhat helpful. He does not feel like the Gabapentin has been helpful at all. He needs a refill on the Cyclobenzaprine, this is also helpful for him. He is aware we will not be coming back to [place] but he is ok with seeing us in [place]. He continues his therapy exercises daily and [...] . He also reports of being a [employer] for six years. He states he was discharged five years ago. During his time as a [employer] he reports being captured for two [...] it is at a kidney Center in [place]. I have made several phone calls to [...] normal. Delusional type of behaviors. Skin: Normal. [place], warm, dry. Tests Educational Testing: Questionnaires PHQ-9: [...] and for adult impression and score eleven; [[id number]] Established outpatient, medically appropriate H&P, moderate level [...] but may be subject to typographical or software development engineer errors. Verify all diagnoses, medications, dosages, and patient instructions with patient and/or the originator of this document. Care Team - MARCELL MCCAIN MD - [facility] Psychiatric/Mental Health Health Reminders - Assess BMI satisfied 11/05/2023. - Assess Tobacco Use satisfied 11/05/2023. - Depression Screening satisfied 11/05/2023.
--- NOTE | 2024-09-03 06:24 | ED.CHESTPAIN ---
HPI - Chest Pain General Chief Complaint: Chest Pain Stated Complaint: chest pain coughing Time Seen by Provider: 09/03/24 06:24 Source: patient Mode of arrival: ambulatory History of Present Illness HPI narrative: 34-year-old male with a history of smoking, PE, kidney stones, Amphetamine abuse presents to the ED with -- left chest pain. no radiation of the pain it -- cough with bloody sputum -- shortness of breath the patient was in the ED 2 days ago for left flank pain. MD complaint: chest pain Onset (ago): hour(s) ( 2 hours) Timing of current episode: episodic Prior episodes: No Onset: during rest Pain location: left chest Pain radiation: none Quality: aching Relieving factors: nothing Exacerbating factors: nothing Treatment prior to arrival: none Risk Factors Coronary artery disease risk factors: smoking history Thoracic aortic dissection risk factors: none Related Data Home Medications ?Medication ?Instructions ?Recorded ?Confirmed ?Last Taken ?Type cyclobenzaprine 5 mg tablet 5 mg PO TID PRN Spasms 04/19/23 04/02/24 Unknown History Allergies Allergy/AdvReac Type Severity Reaction Status Date / Time aspirin Allergy Unknown Other Verified 09/01/24 15:07 celecoxib Allergy Unknown Other Verified 09/01/24 15:07 citalopram Allergy Unknown Other Verified 09/01/24 15:07 codeine Allergy Unknown Unknown Verified 09/01/24 15:07 NSAIDS (Non-Steroidal Allergy Unknown Other Verified 09/01/24 15:07 Anti-Inflamma tramadol Allergy Unknown Other Verified 09/01/24 15:07 haloperidol (From Haldol) AdvReac Other Verified 09/01/24 15:07 Review of Systems Review of Systems: All systems reviewed & are unremarkable except as noted in HPI and below Constitutional: Constitutional: Reports as per HPI and Reports no additional constitutional complaints Eyes: Eyes: Reports as per HPI and Reports no additional eye complaints ENT: Reports system reviewed and no additional complaints, except as documented and Reports as per HPI Cardiovascular: Cardiovascular: Reports as per HPI, Reports no additional cardiovascular complaints and Reports chest pain Respiratory: Respiratory: Reports as per HPI, Reports no additional respiratory complaints, Reports cough and Reports dyspnea Comments: cough with hemoptysis Gastrointestinal: Gastrointestinal: Reports as per HPI and Reports no additional gastrointestinal complaints Genitourinary: Genitourinary: Reports no additional male genitourinary complaints and Reports as per HPI Musculoskeletal: Musculoskeletal: Reports no additional musculoskeletal complaints and Reports back pain Integumentary/Breasts: Skin/Breast: Reports system reviewed and no additional complaints, except as docu and Reports as per HPI Neurologic: Reports system reviewed and no additional complaints, except as documented and Reports as per HPI Psychiatric: Psychiatric: Reports no additional psychiatric complaints and Reports as per HPI Endocrine: Endocrine: Reports no additional endocrine complaints and Reports as per HPI Hematologic/Lymphatic: Hematologic/Lymphatic: Reports no additional hematologic/lymphatic complaints and Reports as per HPI Allergic/Immunologic: Allergic/Immunologic: Reports no additional allergic/immunologic complaints and Reports as per HPI [facility] Past Medical History Medical History Hx pulmonary embolism Tobacco abuse History of kidney stones Ankle injury Surgical History Surgical History History of ankle surgery Family History Family History Father Accident Social History Social History Social History: The patient lives with his and she is the durable power claim attorney for healthcare. He has 3 biological children and 2 step children. The patient continues to smoke at least 10 cigarettes a day. He denies any alcohol marijuana or illicit drugs. Smoking packs per day: 0.5 Smoking cigarettes per day: 10.0 Years smoked: 20 Smoking pack-years: 10.00 Smoking status: Current every day smoker Tobacco type: cigarettes Additional smoking assessment comments: down from 2 and half packs per day Alcohol intake: current Drinks per week: 0 Alcohol use details: rare Substance use: current Substance use type: marijuana Other substance usage details: not much Last use: 06/22/2022 Lack of Transportation: No Lack of Food: Never True Current Housing: I Have Housing Concerned About Future Housing: No Difficulty Paying Gas/Electric Bills: No Difficulty Paying for Meds: No Currently Unemployed: No Education: Decline to Answer Difficulty w/ Childcare or Family Care: No Spiritual care concerns: No Exam Narrative: pulse 108. Oxygen saturation of 99% on room air Const: Orientation/consciousness: patient oriented x3 HENMT: Head: normal to inspection Ears: external ears normal Face/Nose/Sinus: Normal external nose present Face and sinus: normal facial exam Mouth: Yes Normal oral and palatal mucosa present Throat: posterior oropharynx normal Eyes: Conjunctivae: conjunctivae normal Pupils: Equal, round and reactive pupils present EOM: EOMs intact bilaterally Direct Ophthalmoscopy: no photophobia Neck: Neck: normal visual inspection, no lymphadenopathy and no meningeal signs Chest: Chest palpation & inspection: normal inspection of the chest Resp: Effort & Inspection: normal respiratory effort Auscultation: clear to auscultation bilaterally Cardio: Rate: regular rate Rhythm: regular rhythm GI: Auscultation: normal bowel sounds Other: epigastric tenderness no rigidity/rebound : General: Yes no CVA tenderness Back/Spine/Pelvis: Back: no CVA tenderness Skin: General skin exam: normal color Rashes: no rashes Wounds: no wounds Neuro: General: patient oriented x3, moves all extremities, no meningeal signs and no focal motor deficits Cranial nerves: Yes Nystagmus not present Speech: normal speech Gait exam (Neuro): Normal gait present Extrem: General: normal to inspection and no clubbing, cyanosis or edema Psych: Mental Status: mental status grossly normal Affect: normal affect Attitude: cooperative Course Course Emergency Course: chest pain cough with hemoptysis Vital Signs Vital signs: Vital Signs Temperature 36.4 C L 09/03/24 06:18 Pulse Rate 108 H 09/03/24 06:18 Respiratory Rate 18 09/03/24 06:18 Pulse Oximetry 99 09/03/24 06:18 Oxygen Delivery Room Air 09/03/24 06:18 Temperature 37.7 C H 09/03/24 08:20 Pulse Rate 101 H 09/03/24 08:20 Respiratory Rate 18 09/03/24 08:20 Blood Pressure 119/85 09/03/24 08:20 Pulse Oximetry 98 09/03/24 08:20 Oxygen Delivery Room Air 09/03/24 08:20 MDM - Chest Pain MDM Narrative Medical decision making narrative: Chest pain influenza a Differential Diagnosis Differential diagnosis: Likely fracture of rib, pneumothorax and other ( pulmonary embolism) Medical Records Data Attestation: I reviewed the patient's medical records. Lab Data Attestation: I reviewed the patient's lab results. 09/03/24 06:50 09/03/24 06:50 Labs: Lab Results 09/03/24 09/03/24 Range/Units 06:05 06:50 WBC 5.3 (4.8-10.8) K/mm3 RBC 4.98 (4.70-6.10) M/mm3 Hgb 15.0 (14.0-18.0) g/dL Hct 44.1 (40.0-54.0) % MCV 88.6 (78.0-102.0) fL MCH 30.1 (27.0-31.0) pg MCHC 34.0 (32-36) g/dL RDW 12.1 (11.6-14.4) % Plt Count 181 (150-420) K/mm3 MPV 9.8 (8.7-11.0) fl Immature Gran % (Auto) Not Reportable Neut % (Auto) Not Reportable Lymph % (Auto) Not Reportable [place] % (Auto) Not Reportable Eos % (Auto) Not Reportable Baso % (Auto) Not Reportable Lymph # (Auto) Not Reportable [place] # (Auto) Not Reportable Eos # (Auto) Not Reportable Baso # (Auto) Not Reportable Abs Immat Gran (auto) Not Reportable Absolute Neuts (auto) Not Reportable Absolute Nucleated RBC Not Reportable Total Counted 100 Neutrophils % (Manual) 76 H (46-73) % Band Neutrophils % 0 (0-6) % Lymphocytes % (Manual) 17 L (18-44) % Monocytes % (Manual) 7 (3-9) % Nucleated RBC % Not Reportable Abs Neuts (Manual) 4.02 (1.3-6.7) K/mm3 Abs Lymphs (Manual) 0.90 L (1.1-4.5) K/mm3 Abs Monocytes (Manual) 0.37 (0.1-0.90) K/mm3 Platelet Estimate Adequate (Adequate) Schistocytes Not Reportable PT 11.4 (9.50-12.1) Seconds INR 1.0 APTT 32.2 H (23.9-30.70) Sec D-Dimer 0.82 H* (0.19-0.50) mg/L Sodium 138 (136-145) mmol/L Potassium 4.3 (3.5-5.1) mmol/L Chloride 100 (98-108) mmol/L Carbon Dioxide 29 (21-32) mmol/L Anion Gap 9 (4-12) mmol/L BUN 9 (7-18) mg/dL Creatinine 1.11 (0.70-1.30) mg/dL Estim Creat Clear Calc 87 ml/min Estimated GFR > 60 (59 - ) Glucose 99 (70-99) mg/dL Calculated Osmolality 284 L (285-295) mOsm/kg Lactic Acid 1.1 (0.4-2.0) mmol/L Calcium 8.7 (8.5-10.1) mg/dL Total Bilirubin 0.3 (0.00-1.00) mg/dL AST 29 (15-37) U/L ALT 48 (16-63) U/L Alkaline Phosphatase 97 (46-116) U/L Troponin I 14.3 (0.00-60.4) ng/L NT-Pro-B Natriuret Pep 20 (0-125) pg/mL Total Protein 7.1 (6.4-8.2) g/dL Albumin 3.5 (3.4-5.0) g/dL Lipase 37 (16-77) U/L Influenza A (RT-PCR) Positive A (Negative) Influenza B (RT-PCR) Negative (Negative) RSV (RT-PCR) Negative (Negative) SARS-CoV-2 RNA (RT-PCR) Negative (Negative) ECG Data EKG #1: ECG completion date: 09/03/24 ECG completion time: 06:26 Interpretation: sinus tachycardia. Left axis deviation. Poor R-wave progression anterior leads suggestive of an old anteroseptal infarction. No ST elevation. Discharge Plan Discharge Clinical Impression: Influenza A Chest pain Qualifiers: Chest pain type: unspecified Qualified Code(s): R07.9 - Chest pain, unspecified Patient Disposition: Home, Self-Care Condition: Stable Instructions: Antibiotic Form, Influenza (ED) Additional Instructions: advised take medication as prescribed and follow up with primary within 1 to 2 weeks further evaluation treatment. Patient Language: Kiswahili Prescriptions: New oseltamivir [Tamiflu] 75 mg capsule 75 mg PO Q12H 5 Days Qty: 10 0RF No Action losartan-hydrochlorothiazide 50-12.5 mg tablet 1 tablet PO DAILY Qty: 20 0RF cyclobenzaprine 5 mg tablet 5 mg PO TID PRN (Reason: Spasms) ketorolac 10 mg tablet 10 mg PO Q6H 5 Days Qty: 20 0RF cyclobenzaprine 7.5 mg tablet 7.5 mg PO TID Qty: 20 0RF Follow-up/Referrals: UNKNOWN,DOCTOR [Non-Staff] - Time of Disposition: 08:09
--- NOTE | 2024-09-03 06:52 | PC.NURSE ---
XRAY AT THE BEDSIDE.
[2024-09-03 06:56] LABS: Hematocrit 44.1 % (40.0-54.0); Mean Corpuscular Hemoglobin 30.1 pg (27.0-31.0); Mean Corpuscular Volume 88.6 fL (78.0-102.0); Mean Platelet Volume 9.8 fl (8.7-11.0); Platelet Count Result 181 K/mm3 (150-420); Red Blood Count 4.98 M/mm3 (4.70-6.10); Red Cell Distribution Width 12.1 % (11.6-14.4); White Blood Count 5.3 K/mm3 (4.8-10.8)
[2024-09-03 07:10] LABS: Partial Thromboplastin Time 32.2 Sec (23.9-30.70); Prothrombin Time 11.4 Seconds (9.50-12.1)
[2024-09-03 07:13] LABS: D Dimer 0.82 mg/L (0.19-0.50)
[2024-09-03 07:14] LABS: Lactic Acid Reflex 1.1 mmol/L (0.4-2.0)
--- NOTE | 2024-09-03 07:28 | PC.NURSE ---
pt reports iv contrast makes him violently ill reports makes him nauseated and vomiting. erp is notified, awaiting orders.
--- OUTSIDE RECORDS SUMMARY | 2024-09-03 07:28 | XMS_ITS | Clinical Summary ---
Author Organization [facility] Address [address] [place] [id number] Phone Care Team Providers Care Bias Cutter Helper Name Role Phone KALYN GILLESPIE, MARCELL Primary Care Provider [phone] ALONDRA PMHNP-BC, SIVAN Unavailable [phone] Reason for Visit and Chief Complaint The Chief Complaint is: Follow up on L5-S1 TFESI 07/04/2023 ~ ~0 and 0 ongoing Problems Includes: Problems addressed during this encounter and other active Problems Current Visit Onset Date Resolved Date Provider Conditio n Status Delusional Disorder Unknown SILVIA Vera TAMAR REMARKETING MANAGER-FPA, SOCIAL MEDIA DIRECTOR-BC Active Last Documented On 4 1:59PM ; [facility] Plan of Treatment Pending Tests Order Diagnosis Results Due Ordering Provider Pain Management CPT - Facet Joint Procedur Intraarticular joint/Medial Branch Block L/S 1st Other spondylosis, lumbar region 01/12/24 SILVIA Gamez TAMAR REMARKETING MANAGER-FPA, SOCIAL MEDIA DIRECTOR-BC Last Documented On 4 11:28AM ; [facility] Pain Management CPT - Facet Joint Procedur Intraarticular joint/Medial Branch Block L/S 2nd Other spondylosis, lumbar region 01/12/24 SILVIA Vera TAMAR REMARKETING MANAGER-FPA, SOCIAL MEDIA DIRECTOR-BC Last Documented On 4 11:28AM ; [facility] Assessments Includes: Assessments from this encounter Findings - [M54.50 - Low back pain, unspecified] Low back pain - Last Documented On 08/01/2023 2:00PM ; [facility] - [M54.16 - Radiculopathy, lumbar region] Lumbar radiculopathy - Last Documented On 08/01/2023 2:00PM ; [facility] - [F22 - Delusional disorders] Delusional disorder of unknown (axis III) etiology - Last Documented On 08/01/2023 2:00PM ; [facility] - [G89.4 - Chronic pain syndrome] Chronic pain syndrome - Last Documented On 08/01/2023 2:00PM ; [facility] Medical Equipment - Implanted Devices Includes: Current Devices No Medical Equipment Recorded Medications Includes: Medications discussed during this encounter and other current Medications Discontinued / Stopped on this date INDIO PALUMBO on 06/06/2023 DULoxetine HCl 60 MG Oral Capsule Delayed Release Particles Provider: INDIO PALUMBO Diagnosis: Low back pain, u nspecified Last Documented On 4 1:33PM By Juana TINEO ; [facility] Diclofenac Sodium 75 MG Oral Tablet Delayed Release Provider: MARCELL MCCAIN MD Diagnosis: Last Documented On 4 1:49PM By SILVIA BORJAS ; [facility] Gabapentin 300 MG Oral Capsule Provider: MARCELL MCCAIN MD Diagnosis: Last Documented On 4 1:49PM By SILVIA BORJAS ; [facility] Ziprasidone HCl 20 MG Oral Capsule Provid er: Diagnosis: Last Documented On 4 1:43PM By SILVIA BORJAS ; [facility] Cyclobenzaprine HCl 5 MG Oral Tablet Prov ider: MARCELL MCCAIN MD Diagnosis: Last Documented On 4 1:52PM By SILVIA BORJAS ; [facility] New / Renewed during this visit INDIO PALUMBO on 08/01/2023 Cyclobenzaprine HCl 5 MG Oral Tablet Provider: INDIO PALUMBO 90 day supply: 270 tablet, 0 refills Diagnosis: Low back pain, unspecified One tablet three times a day as needed for low back pain Pharmacy: [address], [phone] - Last Documented On 4 4:06PM By KIMBERLY BYERS ; [facility] Meloxicam 15 MG Oral Tablet Provider: INDIO EASTON 90 day supply: 90 tablet, 1 refills Diagnosis: Low back pain, unspecified One tablet daily with a meal Pharmacy: [address], [phone] - Last Documented On 4 4:23PM By SILVIA BORJAS ; [facility] Current Medications (continue as prescribed) Cyclobenzaprine HCl 10 MG Oral Tablet 12/13/2023 Provider: INDIO PALUMBO Diagnosis: Other spondylosi s, lumbar region One tablet three times a day as needed Last Documented On 4 2:08PM By SILVIA BORJAS ; [facility] Cyclobenzaprine HCl 5 MG Ora l Tablet 10/30/2023 Provider: KIMBERLY BYERS Diagnosis: Low back pain, unspecified One tablet three times a day as needed for low back pain Last Documented On 4 4:23PM By SILVIA BORJAS ; [facility] Famotidine 40 MG Oral Tablet 05/09/2023 Provider: MARCELL MCCAIN MD Diagnosis: Last Documented On 3 12:43PM By SILVIA BORJAS ; [facility] Medications Administered Includes: Administered Medications [...] 98 Last Documented: On 08/01/2023 1:36PM ; [facility] Results Includes: Results discussed during [...] his necklace. 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 He is very cooperative and pleasant. He reports the Diclofenac being somewhat helpful. He does not feel like the Gabapentin has been helpful at all. He needs a refill on the Cyclobenzaprine, this is also helpful for him. He is aware we will not be coming back to [place] but he is ok with seeing us in [place]. He continues his therapy exercises daily and [...] . He also reports of being a [employer] for six years. He states he was discharged five years ago. During his time as a [employer] he reports being captured for two [...] it is at a kidney Center in [place]. I have made several phone calls to [...] 06/06/2023 Last Documented On 4 1:21PM ; [facility] Current smoker 06/06/2023 Last Documented On 4 1:21PM ; [facility] Difficulty walking 06/06/2023 Last Documented On 4 1:21PM ; [facility] No consumption of alcohol 06/06/2023 Last Documented On 4 1:21PM ; [facility] Smoking packs of cigarettes per day 0 Last Documented On 4 1:21PM ; [facility] Smoking Status Unknown Procedures and Surgical History Includes: Procedures from this encounter Procedures Code Diagnosis Performing Provider Service L ocation Service Date use of tobacco assessment performed 1000F Last Documented On 4 1:28PM ; [facility] review of medications documented 1160F Last Documented On 4 1:28PM ; [facility] screening for adult depression: impressi on and score four Last Documented On 4 1:28PM ; [facility] standardized depression screening: posit yulissa for symptoms Last Documented On 4 1:28PM ; [facility] Reviewed & agreed to staff entries. Last Documented On 4 1:28PM ; [facility] Clinical summary provided to patient Last Documented On 4 1:28PM ; [facility] SOAPP-R: total score 12 Last Documented On 4 1:28PM ; [facility] Medical History Includes: Medical History addressed during this encounter Description Last Updated Has had no fall in the last 12 months. 0 11/05/2023 Last Documented On 4 1:21PM ; [facility] Please list all illnesses/co nditions [...] 06/07/2023 Last Documented On 4 1:21PM ; [facility] Moderate to severe pain 06/06/2023 Last Documented On 4 1:21PM ; [facility] Physical therapy 06/06/2023 Last Documented On 4 1:21PM ; [facility] Denies a fear of falling. 06/06/2023 Last Documented On 4 1:21PM ; [facility] Family History Includes: Family History [...] Last Documented On 4 1:34PM ; [facility] DULoxetine HCl Allergy Seizure 08/01/2023 Acti ve Last Documented On 4 1:34PM ; [facility] Encounters Encounter Provider Location Date Check-In Time Check-Out Time Diagnosis PAIN MANAGEMENT FOLLOW UP SILVIA Gamez TAMAR REMARKETING MANAGER-FPA, SOCIAL MEDIA DIRECTOR-BC [facility] ON 08/01/19 24 1:27PM 1:56PM Chronic Pain Syndrome,Delu sional Disorder of Unknown ([place] III) Etiology,Lumb ar Radiculopathy ,Dorsopathy Low Back Pain Insurance Includes: Active Insurance Policies Plan Name Member ID Group # Subscriber Relationship Effect yulissa Dates 1 - [facility] PL[facility] [id number] MISBAH KOROMA Self Clinical Notes Includes: Clinical Notes from this encounter * Progress note Date Encounter Last Documented by 08/01/2023 PAIN MANAGEMENT FOLLOW UP Last d ocumented on 08/01/2023; 2:00 PM, SILVIA Gamez TAMAR REMARKETING MANAGER-FPA, SOCIAL MEDIA DIRECTOR-BC; [facility] Active Problems & Conditions - Delusional Disorder [...] his necklace. 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 He is very cooperative and pleasant. He reports the Diclofenac being somewhat helpful. He does not feel like the Gabapentin has been helpful at all. He needs a refill on the Cyclobenzaprine, this is also helpful for him. He is aware we will not be coming back to [place] but he is ok with seeing us in [place]. He continues his therapy exercises daily and [...] . He also reports of being a [employer] for six years. He states he was discharged five years ago. During his time as a [employer] he reports being captured for two [...] it is at a kidney Center in [place]. I have made several phone calls to [...] normal. Delusional type of behaviors. Skin: Normal. [place], warm, dry. Tests Educational Testing: Questionnaires PHQ-9: [...] but may be subject to typographical or assistant farm operations manager errors. Verify all diagnoses, medications, dosages, and patient instructions with patient and/or the originator of this document. Care Team - MARCELL MCCAIN MD - Primary Care - TRINY BRITO- - Psychiatric/Mental Health Health Reminders - Assess BMI satisfied 08/01/2023. - Assess Tobacco Use satisfied 08/01/2023. - Depression Screening satisfied 08/01/2023.
--- OUTSIDE RECORDS SUMMARY | 2024-09-03 07:28 | XMS_ITS | Clinical Summary ---
Author Organization [facility] Address [address] [place] [phone] Phone Care Team Providers Care Hobber Name Role Phone MARCELL MCCAIN MD Primary Care Provider [phone] ALONDRA PMHNP-BC, SIVAN Unavailable [phone] Reason for Visit and Chief Complaint POST PROCEDURE PHONE CALL Problems Includes: Problems addressed during this encounter and other active Problems All Visits Onset Date Resolved Date Provider Condition S tatus Delusional Disorder Unknown SILVIA BOYLE LABEL PINKER-FPA, DATER ASSEMBLER-BC Active Last Documented On 4 1:59PM ; [facility] Plan of Treatment Pending Tests Order Diagnosis Results Due Ordering Provider Pain Management CPT - Facet Joint Procedur Intraarticular joint/Medial Branch Block L/S 1st Other spondylosis, lumbar region 01/12/24 SILVIA BOYLE LABEL PINKER-FPA, DATER ASSEMBLER-BC Last Documented On 4 11:28AM ; [facility] Pain Management CPT - Facet Joint Procedur Intraarticular joint/Medial Branch Block L/S 2nd Other spondylosis, lumbar region 01/12/24 SILVIA BOYLE LABEL PINKER-FPA, DATER ASSEMBLER-BC Last Documented On 4 11:28AM ; [facility] Assessments Includes: Assessments from this encounter No Assessments Recorded Medical Equipment - Implanted Devices Includes: Current Devices No Medical Equipment Recorded Medications Includes: Medications discussed during this encounter and other current Medications Current Medications (continue as prescribed) Cyclobenzaprine HCl 10 MG Oral Tablet 12/13/2023 Provider: SILVIA BOYLE LABEL PINKER-FPA DATER ASSEMBLER-BC Diagnosis: Other spondylosi s, lumbar region One tablet three times a day as needed Last Documented On 4 2:08PM By SILVIA BOYLE [facility] ; [facility] Cyclobenzaprine HCl 5 MG Ora l Tablet 10/30/2023 Provider: KIMBERLY STEPHENS [facility]-BC Diagnosis: Low back pain, unspecified One tablet three times a day as needed for low back pain Last Documented On 4 4:23PM By SILVIA BOYLE [facility]- ; [facility] Meloxicam 15 MG Oral Tablet 08/01/2023 Provider: SILVIA VAN, DATER ASSEMBLER-BC Diagnosis: Low back pain, u nspecified One tablet daily with a meal Last Documented On 4 4:23PM By SILVIA BOYLE [facility] ; [facility] Famotidine 40 MG Oral Tablet 05/09/2023 Provider: MARCELL MCCAIN MD Diagnosis: Last Documented On 3 12:43PM By SILVIA BOYLE [facility] ; [facility] Medications Administered Includes: Administered [...] 06/06/2023 Last Documented On 4 1:28PM ; [facility] Current smoker 06/06/2023 Last Documented On 4 1:28PM ; [facility] Difficulty walking 06/06/2023 Last Documented On 4 1:28PM ; [facility] No consumption of alcohol 06/06/2023 Last Documented On 4 1:28PM ; [facility] Smoking packs of cigarettes per day 0 Last Documented On 4 1:28PM ; [facility] Smoking Status Unknown Medical History Includes: Medical History addressed during this encounter Description Last Updated Has had a fall in the last 12 months. Last Documented On 4 1:28PM ; [facility] Please list all illnesses/co [...] 06/07/2023 Last Documented On 4 1:28PM ; [facility] Moderate to severe pain 06/06/2023 Last Documented On 4 1:28PM ; [facility] Physical therapy 06/06/2023 Last Documented On 4 1:28PM ; [facility] Denies a fear of falling. 06/06/2023 Last Documented On 4 1:28PM ; [facility] Family History Includes: Family History addressed [...] Active Last Documented On 4 1:34PM ; [facility] DULoxetine HCl Allergy Seizure 08/01/2023 Acti ve Last Documented On 4 1:34PM ; [facility] Encounters Encounter Provider Location Date Check-In Time Check-Out Time Diagnosis POST PROCEDURE PHONE CALL SILVIA BOYLE LABEL PINKER-FPA, DATER ASSEMBLER-BC 12/06/2023 1:28PM 11:59PM Insurance Includes: Active Insurance Policies Plan Name Member ID Group # Subscriber Relationship Effect yulissa Dates 1 - [facility] PLANS [id number] MISBAH Marroquin Clinical Notes Includes: Clinical Notes from this encounter * Progress note Date Encounter Last Documented by 12/06/2023 POST PROCEDURE PHONE CALL Last d ocumented on 12/06/2023; 1:30 PM, Rosanna Her RN; [facility] Top of Document Post-Procedural Patient Screening [...]
--- OUTSIDE RECORDS SUMMARY | 2024-09-03 07:28 | XMS_ITS ---
Care Plan - [facility] Created on: September 03, 2024 MISBAH KOROMA : 1990 Sex: Male Author Organization [facility] Address [address] [place] [phone] Phone Care Team Providers Care Pipe Inspector Name Role Phone KALYN GILLESPIE, MARCELL Primary Care Provider [phone] ALONDRA [facility]-, SIVAN Unavailable [phone]
--- OUTSIDE RECORDS SUMMARY | 2024-09-03 07:28 | XMS_ITS | Clinical Summary ---
Author Organization [facility] Address [address] [place] [phone] Phone Care Team Providers Care Factory Focus Technician Name Role Phone MARCELL MCCAIN MD Primary Care Provider [phone] ALONDRA PMHNP-BC, SIVAN Unavailable [phone] Reason for Visit and Chief Complaint * PHONE CALL Problems Includes: Problems addressed during this encounter and other active Problems All Visits Onset Date Resolved Date Provider Condition S tatus Delusional Disorder Unknown SILVIA BOYLE SOFTWARE QUALITY TEST ENGINEER-FPA, DATABASE PROGRAMMER-BC Active Last Documented On 4 1:59PM ; [facility] Plan of Treatment Pending Tests Order Diagnosis Results Due Ordering Provider Pain Management CPT - Facet Joint Procedur Intraarticular joint/Medial Branch Block L/S 1st Other spondylosis, lumbar region 01/12/24 SILVIA BOYLE SOFTWARE QUALITY TEST ENGINEER-FPA, DATABASE PROGRAMMER-BC Last Documented On 4 11:28AM ; [facility] Pain Management CPT - Facet Joint Procedur Intraarticular joint/Medial Branch Block L/S 2nd Other spondylosis, lumbar region 01/12/24 SILVIA BOYLE SOFTWARE QUALITY TEST ENGINEER-FPA, DATABASE PROGRAMMER-BC Last Documented On 4 11:28AM ; [facility] Assessments Includes: Assessments from this encounter No Assessments Recorded Medical Equipment - Implanted Devices Includes: Current Devices No Medical Equipment Recorded Medications Includes: Medications discussed during this encounter and other current Medications Discontinued / Stopped on this date SILVIA BOYLE SOFTWARE QUALITY TEST ENGINEER-FPA, DATABASE PROGRAMMER-BC on 06/06/2023 DULoxetine HCl 30 MG Oral Capsule Delayed Release Particles Provider: SILVIA BOLAND DATABASE PROGRAMMER-BC Diagnosis: Low back pain, u nspecified Last Documented On 3 11:49AM By SILVIA BOYLE [facility] ; [facility] Current Medications (continue as prescribed) Cyclobenzaprine HCl 10 MG Oral Tablet 12/13/2023 [facility] Diagnosis: Other spondylosi s, lumbar region One tablet three times a day as needed Last Documented On 4 2:08PM By SILVIA BOYLE [facility] ; [facility] Cyclobenzaprine HCl 5 MG Ora l Tablet 10/30/2023 Provider: KIMBERLY STEPHENS [facility] Diagnosis: Low back pain, unspecified One tablet three times a day as needed for low back pain Last Documented On 4 4:23PM [facility] ; [facility] Meloxicam 15 MG Oral Tablet 08/01/2023 Provider: SILVIA VAN [facility] Diagnosis: Low back pain, u nspecified One tablet daily with a meal Last Documented On 4 4:23PM By SILVIA BOYLE [facility] ; [facility] Famotidine 40 MG Oral Tablet 05/09/2023 Provider: MARCELL MCCAIN MD Diagnosis: Last Documented On 3 12:43PM By SILVIA BOYLE [facility] ; [facility] Medications Administered Includes: Administered Medications from this encounter No Administered Medications Recorded Results Includes: Results discussed during this encounter No Results Recorded For Specified Dates History of Present Illness Includes: History of Present Illness from this encounter No History of Present Illness Recorded Social History Description Last Updated Not using drugs Using medical marijuana 06/06/2023 Last Documented On 3 12:02PM ; [facility] Current smoker 06/06/2023 Last Documented On 3 12:02PM ; [facility] Difficulty walking 06/06/2023 Last Documented On 3 12:02PM ; [facility] No consumption of alcohol 06/06/2023 Last Documented On 3 12:02PM ; [facility] Smoking packs of cigarettes per day 0 Last Documented On 3 12:02PM ; [facility] Smoking Status Unknown Medical History Includes: Medical History addressed during this encounter Description Last Updated Has had no fall in the last 12 months. 0 11/05/2023 Last Documented On 3 12:02PM ; [facility] Please list all illnesses/co nditions [...] 06/07/2023 Last Documented On 3 12:02PM ; [facility] Moderate to severe pain 06/06/2023 Last Documented On 3 12:02PM ; [facility] Physical therapy 06/06/2023 Last Documented On 3 12:02PM ; [facility] Denies a fear of falling. 06/06/2023 Last Documented On 3 12:02PM ; [facility] Family History Includes: Family History addressed [...] Active Last Documented On 4 1:34PM ; [facility] DULoxetine HCl Allergy Seizure 08/01/2023 Acti ve Last Documented On 4 1:34PM ; [facility] Encounters Encounter Provider Location Date Check-In Time Check-Out Time Diagnosis * PHONE CALL SILVIAROD BOYLE SOFTWARE QUALITY TEST ENGINEER-FPA, DATABASE PROGRAMMER-BC 07/09/2023 12:02PM 11:59PM Insurance Includes: Active Insurance Policies Plan Name Member ID Group # Subscriber Relationship Effect yulissa Dates 1 - [facility] PLANS [id number] MISBAH KOROMA Self Clinical Notes Includes: Clinical Notes from this encounter * Progress note Date Encounter Last Documented by 07/09/2023 * PHONE CALL Last documented on 07/09/2023; 12:52 PM, SILVIA BOYLE SOFTWARE QUALITY TEST ENGINEER-FPA, DATABASE PROGRAMMER-BC; [facility] Chief Complaint Phone Call - [...]
--- OUTSIDE RECORDS SUMMARY | 2024-09-03 07:29 | XMS_ITS | Clinical Summary ---
Author Organization [facility] Address [address] [place] [phone] Phone Care Team Providers Care Telephonic Case Manager Name Role Phone KALYN GILLESPIE, MARCELL Primary Care Provider [phone] CANTU PMHNP-BC, MICHELLE Unavailable [phone] Reason for Visit and Chief Complaint The Chief Complaint is: 3 month follow up. patient worried about increase in pain Problems Includes: Problems addressed during this encounter and other active Problems All Visits Onset Date Resolved Date Provider Condition S tatus Delusional Disorder Unknown SILVIA Gamez TAMAR FOOD QUALITY TECHNICIAN-FPA, CANDY SPREADER-BC Active Last Documented On 4 1:59PM ; [facility] Plan of Treatment Pending Tests Order Diagnosis Results Due Ordering Provider Pain Management CPT - Facet Joint Procedur Intraarticular joint/Medial Branch Block L/S 1st Other spondylosis, lumbar region 01/12/24 SILVIA Vera TAMAR FOOD QUALITY TECHNICIAN-FPA, CANDY SPREADER-BC Last Documented On 4 11:28AM ; [facility] Pain Management CPT - Facet Joint Procedur Intraarticular joint/Medial Branch Block L/S 2nd Other spondylosis, lumbar region 01/12/24 SILVIA Vera TAMAR FOOD QUALITY TECHNICIAN-FPA, CANDY SPREADER-BC Last Documented On 4 11:28AM ; [facility] Assessments Includes: Assessments from this encounter Findings - [M47.896 - Other spondylosis, lumbar region] Lumbar spondylosis - Last Documented On 11/05/2023 4:25PM ; [facility] - [M54.50 - Low back pain, unspecified] Low back pain - Last Documented On 11/05/2023 4:25PM ; [facility] - [F22 - Delusional disorders] Delusional disorder of unknown (axis III) etiology - Last Documented On 11/05/2023 4:25PM ; [facility] - [G89.4 - Chronic pain syndrome] Chronic pain syndrome - Last Documented On 11/05/2023 4:25PM ; [facility] Medical Equipment - Implanted Devices Includes: Current Devices No Medical Equipment Recorded Medications Includes: Medications discussed during this encounter and other current Medications Discontinued / Stopped on this date MICHELLE PITTS on 07/08/2023 Divalproex Sodium 250 MG Ora l Tablet Delayed Release Provider: MICHELLE PITTS Diagnosis: Last Documented On 4 4:03PM By Juana TINEO ; [facility] Benztropine Mesylate 0.5 MG Oral Tablet P rovider: Diagnosis: Last Documented On 4 4:03PM By Juana TINEO ; [facility] Current Medications (continue as prescribed) Cyclobenzaprine HCl 10 MG Oral Tablet 12/13/2023 Provider: INDIO PALUMBO Diagnosis: Other spondylosi s, lumbar region One tablet three times a day as needed Last Documented On 4 2:08PM By SILVIA BORJAS ; [facility] Cyclobenzaprine HCl 5 MG Ora l Tablet 10/30/2023 Provider: [facility]IMBERLY [facility] Diagnosis: Low back pain, unspecified One tablet three times a day as needed for low back pain Last Documented On 4 4:23PM By SILVIA BORJAS ; [facility] Meloxicam 15 MG Oral Tablet 08/01/2023 Provider: INDIO EASTON Diagnosis: Low back pain, u nspecified One tablet daily with a meal Last Documented On 4 4:23PM By SILVIA BORJAS ; [facility] Famotidine 40 MG Oral Tablet 05/09/2023 Provider: MARCELL MCCAIN MD Diagnosis: Last Documented On 3 12:43PM By SILVIA BORJAS ; [facility] Medications Administered Includes: Administered Medications [...] 97 Last Documented: On 11/05/2023 4:25PM ; [facility] Results Includes: Results discussed during [...] in his necklace. 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 He is very cooperative and pleasant. He reports the Diclofenac being somewhat helpful. He does not feel like the Gabapentin has been helpful at all. He needs a refill on the Cyclobenzaprine, this is also helpful for him. He is aware we will not be coming back to [place] but he is ok with seeing us in [place]. He continues his therapy exercises daily and [...] . He also reports of being a [employer] for six years. He states he was discharged five years ago. During his time as a [employer] he reports being captured for two [...] it is at a kidney Center in [place]. I have made several phone calls to [...] 06/06/2023 Last Documented On 4 3:50PM ; [facility] Current smoker 06/06/2023 Last Documented On 4 3:50PM ; [facility] Difficulty walking 06/06/2023 Last Documented On 4 3:50PM ; [facility] No consumption of alcohol 06/06/2023 Last Documented On 4 3:50PM ; [facility] Smoking packs of cigarettes per day 0 Last Documented On 4 3:50PM ; [facility] Smoking Status Unknown Procedures and Surgical History Includes: Procedures from this encounter Procedures Code Diagnosis Performing Provider Service Location Service Date CLINIC VISIT [id number] Other spondylosi s, lumbar region, Low back pain, unspecified, Chronic pain syndrome, Delusional disorders SILVIA BOYLE FOOD QUALITY TECHNICIAN-FPA, CANDY SPREADER-BC [facility] 11/05/2023 Last Documented On 4 10:50AM ; [facility] use of tobacco assessment performed 1000F Last Documented On 4 3:50PM ; [facility] review of medications documented 1160F Last Documented On 4 3:50PM ; [facility] screening for adult depression: impressi on and score eleven Last Documented On 4 4:03PM ; [facility] standardized depression screening: posit yulissa for symptoms Last Documented On 4 3:50PM ; [facility] Reviewed & agreed to staff entries. Last Documented On 4 3:50PM ; [facility] Clinical summary provided to patient Last Documented On 4 3:50PM ; [facility] SOAPP-R: total score 12 Last Documented On 4 3:50PM ; [facility] Medical History Includes: Medical History addressed during this encounter Description Last Updated Has had a fall in the last 12 months. Last Documented On 4 4:25PM ; [facility] Please list all illnesses/co nditions [...] 06/07/2023 Last Documented On 4 3:50PM ; [facility] Moderate to severe pain 06/06/2023 Last Documented On 4 3:50PM ; [facility] Physical therapy 06/06/2023 Last Documented On 4 3:50PM ; [facility] Denies a fear of falling. 06/06/2023 Last Documented On 4 3:50PM ; [facility] Family History Includes: Family History addressed during [...] Active Last Documented On 4 1:34PM ; [facility] DULoxetine HCl Allergy Seizure 08/01/2023 Acti ve Last Documented On 4 1:34PM ; [facility] Encounters Encounter Provider Location Date Check-In Time Check-Out Time Diagnosis PAIN MANAGEMENT FOLLOW UP SILVIA CEDILLOLP FOOD QUALITY TECHNICIAN-FPA, CANDY SPREADER-BC [facility] 11/05/19 24 3:34PM 4:17PM Chronic Pain Syndrome,Delus ional Disorder of Unknown ([place] III) Etiology,Dorso alison Low Back Pain,Lumbar Spondylosis Insurance Includes: Active Insurance Policies Plan Name Member ID Group # Subscriber Relationship Effect yulissa Dates 1 - [facility] PL[facility] [id number] MISBAH KOROMA Self Clinical Notes Includes: Clinical Notes from this encounter * Progress note Date Encounter Last Documented by 11/05/2023 PAIN MANAGEMENT FOLLOW UP Last d ocumented on 11/05/2023; 4:25 PM, SILVIA CEDILLOLP FOOD QUALITY TECHNICIAN-FPA, CANDY SPREADER-BC; [facility] Active Problems & Conditions - [...] in his necklace. 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 He is very cooperative and pleasant. He reports the Diclofenac being somewhat helpful. He does not feel like the Gabapentin has been helpful at all. He needs a refill on the Cyclobenzaprine, this is also helpful for him. He is aware we will not be coming back to [place] but he is ok with seeing us in [place]. He continues his therapy exercises daily and [...] . He also reports of being a [employer] for six years. He states he was discharged five years ago. During his time as a [employer] he reports being captured for two [...] it is at a kidney Center in [place]. I have made several phone calls to [...] normal. Delusional type of behaviors. Skin: Normal. [place], warm, dry. Tests Educational Testing: Questionnaires PHQ-9: [...] and for adult impression and score eleven; [61902] Established outpatient, medically appropriate H&P, moderate level [...] but may be subject to typographical or malted milk mixer errors. Verify all diagnoses, medications, dosages, and patient instructions with patient and/or the originator of this document. Care Team - MARCELL MCCAIN MD - [facility] Psychiatric[facility]Mental Health Health Reminders - Assess BMI satisfied 11/05/2023. - Assess Tobacco Use satisfied 11/05/2023. - Depression Screening satisfied 11/05/2023.
--- OUTSIDE RECORDS SUMMARY | 2024-09-03 07:29 | XMS_ITS ---
Author Organization [facility] Address [address] [place] [id number] Phone Care Team Providers Care Bath Mixer Name Role Phone KALYN GILLESPIE, MARCELL Primary Care Provider [phone] CANTU PMHNP-BC, MICHELLE Unavailable [phone] Problems Includes: Active, inactive, and resolved Problems All Visits Onset Date Resolved Date Provider Condition S tatus Delusional Disorder Unknown SILVIA BOYLE RESIDENCY PROGRAM COORDINATOR-FPA, AIRPORT RAMP ATTENDANT-BC Active Last Documented On 4 1:59PM ; [facility] Plan of Treatment Pending Tests Order Diagnosis Results Due Ordering Provider Pain Management CPT - Facet Joint Procedur Intraarticular joint/Medial Branch Block L/S 1st Other spondylosis, lumbar region 01/12/24 SILVIA BOYLE RESIDENCY PROGRAM COORDINATOR-FPA, AIRPORT RAMP ATTENDANT-BC Last Documented On 4 11:28AM ; [facility] Pain Management CPT - Facet Joint Procedur Intraarticular joint/Medial Branch Block L/S 2nd Other spondylosis, lumbar region 01/12/24 SILVIA BOYLE RESIDENCY PROGRAM COORDINATOR-FPA, AIRPORT RAMP ATTENDANT-BC Last Documented On 4 11:28AM ; [facility] Instructions to patient Intervention and counseling on cessation of tobacco use : Patient recieved smoking cessation handout Last Documented On 4 1:32PM ; [facility] Assessments Includes: Assessments for all patient encounters Findings Encounter Date Chronic pain syndrome PAIN MANAGEMENT FO LLOW UP with SILVIA BOYLE RESIDENCY PROGRAM COORDINATOR-FPA, AIRPORT RAMP ATTENDANT-BC 12/13/2023 Last Documented On 4 2:51PM ; [facility] Delusional disorder of unkno wn (axis III) etiology PAIN MANAGEMENT FOLLOW UP with SILVIA Vera TAMAR RESIDENCY PROGRAM COORDINATOR-FPA, AIRPORT RAMP ATTENDANT-BC 12/13/2023 Last Documented On 4 2:51PM ; [facility] Low back pain PAIN MANAGEMENT FOLL OW UP with SILVIA Vera TAMAR RESIDENCY PROGRAM COORDINATOR-FPA, AIRPORT RAMP ATTENDANT-BC 12/13/2023 Last Documented On 4 2:51PM ; [facility] Lumbar spondylosis PAIN MANAGEMENT FOLL OW UP with SILVIA Vera TAMAR RESIDENCY PROGRAM COORDINATOR-FPA, AIRPORT RAMP ATTENDANT-BC 12/13/2023 Last Documented On 4 2:51PM ; [facility] Chronic pain syndrome PAIN MANAGEMENT FO LLOW UP with SILVIA Vera TAMAR RESIDENCY PROGRAM COORDINATOR-FPA, AIRPORT RAMP ATTENDANT-BC 11/05/2023 Last Documented On 4 4:25PM ; [facility] Delusional disorder of unkno wn (axis III) etiology PAIN MANAGEMENT FOLLOW UP with SILVIA Gamez TAMAR RESIDENCY PROGRAM COORDINATOR-FPA, AIRPORT RAMP ATTENDANT-BC 11/05/2023 Last Documented On 4 4:25PM ; [facility] Low back pain PAIN MANAGEMENT FOLL OW UP with SILVIA Vera TAMAR RESIDENCY PROGRAM COORDINATOR-FPA, AIRPORT RAMP ATTENDANT-BC 11/05/2023 Last Documented On 4 4:25PM ; [facility] Lumbar spondylosis PAIN MANAGEMENT FOLL OW UP with SILVIA Vera TAMAR RESIDENCY PROGRAM COORDINATOR-FPA, AIRPORT RAMP ATTENDANT-BC 11/05/2023 Last Documented On 4 4:25PM ; [facility] Chronic pain syndrome PAIN MANAGEMENT FO LLOW UP with SILVIA Vera TAMAR RESIDENCY PROGRAM COORDINATOR-FPA, AIRPORT RAMP ATTENDANT-BC 08/01/2023 Last Documented On 4 2:00PM ; [facility] Delusional disorder of unkno wn (axis III) etiology PAIN MANAGEMENT FOLLOW UP with SILVIA G TAMAR RESIDENCY PROGRAM COORDINATOR-FPA, AIRPORT RAMP ATTENDANT-BC 08/01/2023 Last Documented On 4 2:00PM ; [facility] Low back pain PAIN MANAGEMENT FOLL OW UP with SILVIA G TAMAR RESIDENCY PROGRAM COORDINATOR-FPA, AIRPORT RAMP ATTENDANT-BC 08/01/2023 Last Documented On 4 2:00PM ; [facility] Lumbar radiculopathy PAIN MANAGEMENT FOL LOW UP with SILVIA BOYLE APRN-FPA, AIRPORT RAMP ATTENDANT-BC 08/01/2023 Last Documented On 4 2:00PM ; [facility] Chronic pain syndrome PAIN MANAGEMENT NE W CONSULT with SILVIA BOYLE RESIDENCY PROGRAM COORDINATOR-FPA, AIRPORT RAMP ATTENDANT-BC 06/06/2023 Last Documented On 3 12:44PM ; [facility] Delusional disorder of unkno wn (axis III) etiology PAIN MANAGEMENT NEW CONSULT with SILVIA BOYLE RESIDENCY PROGRAM COORDINATOR-FPA, AIRPORT RAMP ATTENDANT-BC 06/06/2023 Last Documented On 3 12:44PM ; [facility] Low back pain PAIN MANAGEMENT NEW CONSULT with SILVIA BOYLE RESIDENCY PROGRAM COORDINATOR-FPA, AIRPORT RAMP ATTENDANT-BC 06/06/2023 Last Documented On 3 12:44PM ; [facility] Lumbar radiculopathy PAIN MANAGEMENT NEW CONSULT with SILVIA BOYLE RESIDENCY PROGRAM COORDINATOR-FPA, AIRPORT RAMP ATTENDANT-BC 06/06/2023 Last Documented On 3 12:44PM ; [facility] Instructions Includes: Instructions for all patient encounters Instructions to patient Intervention and counseling on cessation of tobacco use : Patient recieved smoking cessation handout Last Documented On 4 1:32PM ; [facility] Medical Equipment - Implanted Devices Includes: Current and historical Devices No Medical Equipment Recorded Medications Includes: Current and historical Medications Current Medications (continue as prescribed) Cyclobenzaprine HCl 10 MG Oral Tablet 12/13/2023 Provider: INDIO PALUMBO Diagnosis: Other spondylosi s, lumbar region One tablet three times a day as needed Last Documented On 4 2:08PM By SILVIA BORJAS ; [facility] Cyclobenzaprine HCl 5 MG Ora l Tablet 10/30/2023 Provider: KIMBERLY BYERS Diagnosis: Low back pain, unspecified One tablet three times a day as needed for low back pain Last Documented On 4 4:23PM By SILVIA BORJAS ; [facility] Meloxicam 15 MG Oral Tablet 08/01/2023 Provider: SILVIA BOYLE APRN- CODY VAN-BC Diagnosis: Low back pain, u nspecified One tablet daily with a meal Last Documented On 4 4:23PM By SILVIA ROSS- ; [facility] Famotidine 40 MG Oral Tablet 05/09/2023 Provider: MARCELL MCCAIN MD Diagnosis: Last Documented On 3 12:43PM By [facility] ; [facility] Past Medications on file Cyclobenzaprine HCl 5 MG Oral Tablet 08/01/2023 - 10/30/2023 Provider: SILVIA BOLAND AIRPORT RAMP ATTENDANT-BC Diagnosis: Low back pain, unspecified One tablet three times a day as needed for low back pain Last Documented On 4 4:06PM By KIMBERLY [facility] ; [facility] Divalproex Sodium 250 MG Ora l Tablet Delayed Release 07/08/2023 - 11/05/2023 Provider: MICHELLE FLORES HNP-BC Diagnosis: Last Documented On 4 4:03PM By Juana TINEO ; [facility] DULoxetine HCl 30 MG Oral Capsule Delayed Release Particles 06/06/2023 - 07/09/2023 Provider: SILVIA BOLAND AIRPORT RAMP ATTENDANT-BC Diagnosis: Low back pain, unspecified take 1 capsule at bedtime fo r 1 week then increase to 60mg dose Last Documented On 3 11:49AM By [facility]I [facility] ; [facility] DULoxetine HCl 60 MG Oral Capsule Delayed Release Particles 06/06/2023 - 08/01/2023 Provider: SILVIA BOLAND AIRPORT RAMP ATTENDANT-BC Diagnosis: Low back pain, unspecified 1 capsule daily at bedtime Last Documented On 4 1:33PM By Juana TINEO ; [facility] Diclofenac Sodium 75 MG Oral Tablet Delayed Release 05/30/2023 - 08/01/2023 Provider: MARCELL MCCAIN MD Diagnosis: Last Documented On 4 1:49PM By [facility] ; [facility] Gabapentin 300 MG Oral Capsule 05/30/2023 - 08/01/2023 Provider: MARCELL MCCAIN MD Diagnosis: Last Documented On 4 1:49PM By SILVIA BORJAS ; [facility] Ziprasidone HCl 20 MG Oral Capsule 05/22/2023 - 2023 Provider: Diagnosis: Last Documented On 4 1:43PM By SILVIA BORJAS ; [facility] Benztropine Mesylate 0.5 MG Oral Tablet 05/21/2023 - 0 11/05/2023 Provider: Diagnosis: Last Documented On 4 4:03PM By Juana TINEO ; [facility] Cyclobenzaprine HCl 5 MG Ora l Tablet 05/02/2023 - 08/01/2023 Provider: MARCELL MCCAIN MD Diagnosis: Last Documented On 4 1:52PM By SILVIA BORJAS ; [facility] Medications Administered Includes: Administered Medications [...] 97 Last Documented: On 12/13/2023 1:37PM ; [facility] On 11/05/2023 4:25PM ; [facility] Results Includes: Results from 09/03/2023 through 09/03/2024 No Results Recorded For Specified Dates History of Present Illness History of Present Illness not supported for this document type No History of Present Illness Recorded Social History Description Last Updated Currently 6 children 12/13/2023 Last Documented On 4 2:51PM ; [facility] Not using drugs Using medical marijuana 06/06/2023 Last Documented On 3 12:44PM ; [facility] Current smoker 06/06/2023 Last Documented On 3 12:44PM ; [facility] Difficulty walking 06/06/2023 Last Documented On 3 12:44PM ; [facility] No consumption of alcohol 06/06/2023 Last Documented On 3 12:44PM ; [facility] Smoking packs of cigarettes per day 0 Last Documented On 3 12:44PM ; [facility] Smoking Status Unknown Procedures and Surgical History Includes: Procedures from 09/03/2023 through 09/03/2024 Procedures Code Diagnosis Performing Provider Service Location Service Date CLINIC VISIT T1015 Other spondylosi s, lumbar region, Chronic pain syndrome, Delusional disorders, Low back pain, unspecified [facility] 12/13/2023 Last Documented On 4 9:35AM ; [facility] CLINIC VISIT T1015 Other spondylosi s, lumbar region, Low back pain, unspecified, Chronic pain syndrome, Delusional disorders [facility] 11/05/2023 Last Documented On 4 10:50AM ; [facility] Medical History Includes: Medical History in patient's chart Description Last Updated Has had a fall in the last 12 months. Last Documented On 4 4:25PM ; [facility] Please list all illnesses/co nditions you [...] 06/07/2023 Last Documented On 3 12:44PM ; [facility] Moderate to severe pain 06/06/2023 Last Documented On 3 12:44PM ; [facility] Physical therapy 06/06/2023 Last Documented On 3 12:44PM ; [facility] Denies a fear of falling. 06/06/2023 Last Documented On 3 12:44PM ; [facility] Family History Includes: Family History in patient's [...] Active Last Documented On 4 1:34PM ; [facility] DULoxetine HCl Allergy Seizure 08/01/2023 Acti ve Last Documented On 4 1:34PM ; [facility] Encounters Includes: Encounters from 09/03/2023 through 09/03/2024 Encounter Provider Location Date Check-In Time Check-Out Time Diagnosis PAIN MANAGEMENT FOLLOW UP INDIO PALUMBO [facility] 12/13/19 1:31PM 2:02PM Lumbar Spondylosis,Ch ronic Pain Syndrome,Delus ional Disorder of Unknown ([place] III) Etiology,Dorso alison Low Back Pain POST PROCEDURE PHONE CALL INDIO PALUMBO 12/06/19 24 11/05/2023 1:28PM 11/05/2023 11:59PM PAIN MANAGEMENT FOLLOW UP IDNIO PALUMBO [facility] 11/05/19 3:34PM 4:17PM Chronic Pain Syndrome,Delus ional Disorder of Unknown ([place] III) Etiology,Dorso alison Low Back Pain,Lumbar Spondylosis Insurance Includes: Active Insurance Policies Plan Name Member ID Group # Subscriber Relationship Effect yulissa Dates 1 - [facility] PLANS [id number] MISBAH Marroquin Clinical Notes Includes: Signed Clinical Notes starting from 08/10/2022 * Progress note Date Encounter Last Documented by 12/13/2023 PAIN MANAGEMENT FOLLOW UP Last d ocumented on 12/13/2023; 2:51 PM, SILVIA BOYLE RESIDENCY PROGRAM COORDINATOR-FPA, AIRPORT RAMP ATTENDANT-BC; [facility] Active Problems & Conditions - [...] 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 He is very cooperative and pleasant. He reports the Diclofenac being somewhat helpful. He does not feel like the Gabapentin has been helpful at all. He needs a refill on the Cyclobenzaprine, this is also helpful for him. He is aware we will not be coming back to [place] but he is ok with seeing us in [place]. He continues his therapy exercises daily and [...] . He also reports of being a [employer] for six years. He states he was discharged five years ago. During his time as a [employer] he reports being captured for two [...] it is at a kidney Center in [place]. I have made several phone calls to [...] normal. Delusional type of behaviors. Skin: Normal. [place], warm, dry. Tests Educational Testing: Questionnaires PHQ-9: [...] and for adult impression and score eleven; [75468] Established outpatient, medically appropriate H&P, moderate level [...] but may be subject to typographical or barber shop manager errors. Verify all diagnoses, medications, dosages, and patient instructions with patient and/or the originator of this document. Care Team - MARCELL MCCAIN MD - [facility] - [facility] - Psychiatric/Mental Health Health Reminders - Assess BMI satisfied 12/13/2023. - Assess Tobacco Use satisfied 12/13/2023. - Depression Screening satisfied 12/13/2023. - Smoking & Tobacco Cessation Intervention and Counseling satisfied 12/13/2023. * Progress note Date Encounter Last Documented by 12/06/2023 POST PROCEDURE PHONE CALL Last d ocumented on 12/06/2023; 1:30 PM, Rosanna Her RN; [facility] Top of Document Post-Procedural Patient [...] ocumented on 11/05/2023; 4:25 PM, SILVIA BOYLE RESIDENCY PROGRAM COORDINATOR-FPA, AIRPORT RAMP ATTENDANT-BC; [facility] Active Problems & Conditions - [...] we will not be coming back to [place] but he is ok with seeing us in [place]. He continues his therapy exercises daily and [...] . He also reports of being a [employer] for six years. He states he was discharged five years ago. During his time as a [employer] he reports being captured for two [...] it is at a kidney Center in [place]. I have made several phone calls to [...] normal. Delusional type of behaviors. Skin: Normal. [place], warm, dry. Tests Educational Testing: Questionnaires PHQ-9: [...] and for adult impression and score eleven; [34269] Established outpatient, medically appropriate H&P, moderate level [...] but may be subject to typographical or barber shop manager errors. Verify all diagnoses, medications, dosages, and patient instructions with patient and/or the originator of this document. Care Team - MARCELL MCCAIN MD - Primary Care - [facility] - Psychiatric/Mental Health Health Reminders - Assess BMI satisfied 11/05/2023. - Assess Tobacco Use satisfied 11/05/2023. - Depression Screening satisfied 11/05/2023.
[2024-09-03 07:31] LABS: Alanine Aminotransferase 48 U/L (16-63); Albumin Level 3.5 g/dL (3.4-5.0); Alkaline Phosphatase 97 U/L (46-116); Anion Gap 9 mmol/L (4-12); Aspartate Amino Transferase 29 U/L (15-37); Bilirubin,Total 0.3 mg/dL (0.00-1.00); Blood Urea Nitrogen 9 mg/dL (7-18); Calcium 8.7 mg/dL (8.5-10.1); Carbon Dioxide 29 mmol/L (21-32); Chloride 100 mmol/L (98-108); Estimated CRCL calculation 87 ml/min; Estimated Glomerular Filt Rate > 60; Glucose 99 mg/dL (70-99); Lipase 37 U/L (16-77); NT Pro B Type Natriuretic Pept 20 pg/mL (0-125); Osmolality Calculated 284 mOsm/kg (285-295); Potassium 4.3 mmol/L (3.5-5.1); Sodium 138 mmol/L (136-145); Total Protein 7.1 g/dL (6.4-8.2); Troponin I 14.3 ng/L (0.00-60.4)
[2024-09-03 07:35] LABS: Band Neutrophils Percent 0 % (0-6); Lymphocytes Percent Manual 17 % (18-44); Monocytes Absolute Manual 0.37 K/mm3 (0.1-0.90); Monocytes Percent Manual 7 % (3-9); Neutrophils Absolute Manual 4.02 K/mm3 (1.3-6.7); Neutrophils Percent Manual 76 % (46-73); Platelet Estimate Adequate (Adequate); Total Cells Counted 100
[2024-09-03 07:40] LABS: SARS-CoV-2 RNA PCR Negative (Negative)
[2024-09-03 07:41] LABS: Influenza A QL RT-PCR Positive (Negative); Influenza B QL RT-PCR Negative (Negative); RSV RNA, RT-PCR Negative (Negative)
[2024-09-03] MEDS: ONDANSETRON INJ 4 MG/2 ML VIAL IV PUSH (07:46)
[2024-09-03 08:20] VITALS: BP 119/85; PULSE 101; RESP 18; TEMP 37.7; O2SAT 98
== END 2024-09-03 08:20 | disposition home or self-care (01) ==
PROVIDERS: Internal Medicine Critical Care Medicine; Emergency Provider Emergency Medicine; PCP Internal Medicine
DX: J10.1 Influenza due to other identified influenza virus with other respiratory manifestations (principal); R07.9 Chest pain, unspecified; F17.210 Nicotine dependence, cigarettes, uncomplicated; Z20.822 Contact with and (suspected) exposure to COVID-19
CPT/HCPCS: 36415; 71045; 71275; 80053; 83605; 83690; 83880; 84484; 85025; 85380; 85610; 85730; 87637; 93005; 96374; 99284; J2405; Q9967

== ENCOUNTER 2025-02-15 09:31 | Emergency (ER) | payer BC, SELFPAY ==
[2025-02-15] VITALS (11 sets, daily range): BP systolic 147–155; BP diastolic 113–117; PULSE 94–107; RESP 9–22; TEMP 36.4; O2SAT 96–99
--- NOTE | ~2025-02-15 | XR_ITS ---
CHEST RADIOGRAPH, PA AND LATERAL CLINICAL HISTORY: cough . COMPARISON: 09/03/2024 TECHNIQUE: PA and lateral views of the chest. FINDINGS The cardiomediastinal silhouette is unremarkable. The lungs are clear. IMPRESSION: No focal infiltrate or effusion. Reviewed, dictated and finalized at location A.
--- NOTE | 2025-02-15 09:45 | ED_ITS ---
HPI - URI/Sore Throat General Chief Complaint: Upper Respiratory Infection Stated Complaint: coughing and vomiting blood Time Seen by Provider: 02/15/25 09:42 History of Present Illness HPI Narrative: Pt presents with cough that is productive of yellow sputum that is occasionally blood streaked. Pt denies nasal congestion or sore throat or fever. Pt says he coughs until he vomits and feels like he's going to pass out. 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 Pt says he gets pneumonia about once a year. Related Data Allergies Allergy/AdvReac Type Severity Reaction Status Date / Time aspirin Allergy Unknown Other Verified 02/15/25 10:04 celecoxib Allergy Unknown Other Verified 02/15/25 10:04 citalopram Allergy Unknown Other Verified 02/15/25 10:04 codeine Allergy Unknown Unknown Verified 02/15/25 10:04 NSAIDS (Non-Steroidal Allergy Unknown Other Verified 02/15/25 10:04 Anti-Inflamma tramadol Allergy Unknown Other Verified 02/15/25 10:04 haloperidol (From Haldol) AdvReac Other Verified 02/15/25 10:04 Review of Systems Review of Systems: All systems reviewed & are unremarkable except as noted in HPI and below PMFSH Past Medical History Medical History Hx pulmonary embolism Tobacco abuse History of kidney stones Ankle injury Surgical History Surgical History History of ankle surgery Family History Family History Father Accident Social History Social History Social History: The patient lives with his and she is the durable power attorney law clerk for healthcare. He has 3 biological children and 2 step children. The patient continues to smoke at least 10 cigarettes a day. He denies any alcohol marijuana or illicit drugs. Smoking packs per day: 0.5 Smoking cigarettes per day: 10.0 Years smoked: 20 Smoking pack-years: 10.00 Smoking status: Current every day smoker Tobacco type: cigarettes Additional smoking assessment comments: down from 2 and half packs per day Alcohol intake: current Drinks per week: 0 Alcohol use details: rare Substance use: current Substance use type: marijuana Other substance usage details: not much Last use: 06/22/2022 Lack of Transportation: No Lack of Food: Never True Current Housing: I Have Housing Concerned About Future Housing: No Difficulty Paying Gas/Electric Bills: No Difficulty Paying for Meds: No Currently Unemployed: No Education: Decline to Answer Difficulty w/ Childcare or Family Care: No Spiritual care concerns: No Exam Const: General: healthy appearing and no acute distress Nutritional Appearance: well nourished Orientation/consciousness: patient oriented x3 Limitations: no limitations HENMT: Face/Nose/Sinus: Normal external nose present Mouth: Yes Normal oral and palatal mucosa present Throat: posterior oropharynx normal Eyes: EOM: EOMs intact bilaterally Neck: Neck: normal visual inspection, no lymphadenopathy and no meningeal signs Chest: Chest palpation & inspection: normal inspection of the chest Resp: Effort & Inspection: normal respiratory effort Auscultation: clear to auscultation bilaterally Cardio: Rate: regular rate Rhythm: regular rhythm GI: GI Palp: Yes Soft to palpation and No Tenderness to palpation present (GI) Auscultation: normal bowel sounds Skin: General skin exam: normal color Rashes: no rashes Wounds: no wounds Neuro: General: patient oriented x3, moves all extremities, no meningeal signs, no focal motor deficits and CN's II-XI intact bilaterally Cranial nerves: Yes Nystagmus not present Speech: normal speech Extrem: General: normal to inspection and no clubbing, cyanosis or edema Psych: Mental Status: mental status grossly normal Affect: normal affect Attitude: cooperative Course Vital Signs Vital signs: Vital Signs Temperature 97.5 F L 02/15/25 09:31 Pulse Rate 94 02/15/25 09:31 Respiratory Rate 20 02/15/25 09:31 Blood Pressure 147/113 H 02/15/25 09:31 Pulse Oximetry 98 02/15/25 09:31 Oxygen Delivery Room Air 02/15/25 09:31 Temperature 97.5 F L 02/15/25 09:31 Pulse Rate 99 02/15/25 10:31 Respiratory Rate 15 02/15/25 10:31 Blood Pressure 155/117 H 02/15/25 10:31 Pulse Oximetry 97 02/15/25 10:31 Oxygen Delivery Room Air 02/15/25 10:31 Oxygen Flow Rate 0 02/15/25 09:54 MDM - URI/Sore Throat MDM Narrative Medical decision making narrative: Pt presents with cough to the point of vomiting and nearly passing out for over a week. Pt is not febrile and in no distress here and satting 98% on RA so doubt PE. will get cxr and give neb. bronchitis vs pneumonia vs URI. no pneumonia on cxr. will treat as bronchitis with z pack and guaifenesin ac Discharge Plan Discharge Clinical Impression: Bronchitis Patient Disposition: Home Condition: Stable Instructions: Antibiotic Form, Acute Bronchitis (ED) Patient Language: Bulgarian Prescriptions: New azithromycin [Zithromax Z-Rudi] 250 mg tablet See Rx Instructions .ROUTE .COMPLEX Qty: 6 0RF Rx Instructions: For 250 mg dose pack: take 500 mg today (day 1), then 250 mg for 4 days (days 2-5) codeine-guaifenesin [Guaifenesin AC] 10-100 mg/5 mL liquid 5 ml PO Q6H PRN (Reason: cough) Qty: 60 0RF Follow-up/Referrals: [place] Ramirez MD [Primary Care Provider] -
[2025-02-15] MEDS: IPRATROPIUM 0.5 MG/ALBUTEROL SULFATE 2.5 MG AMPUL.NEB 3 ML INHALATION (09:52)
== END 2025-02-15 10:39 | disposition home or self-care (01) ==
PROVIDERS: Emergency Provider Emergency Medicine; PCP Internal Medicine
DX: J40 Bronchitis, not specified as acute or chronic (principal); F17.210 Nicotine dependence, cigarettes, uncomplicated; F12.90 Cannabis use, unspecified, uncomplicated
CPT/HCPCS: 71046; 94640; 99283

== ENCOUNTER 2025-05-31 19:11 | Emergency (ER) | payer BC, SELFPAY ==
--- NOTE | ~2025-05-31 | XR_ITS ---
XR chest 2V HOSTORY: COUGH COMPARISON:[ None] FINDINGS: Frontal and lateral views of the chest were obtained. The lungs are clear. The heart size is normal in size. Pulmonary vasculature is unremarkable. Osseous structures are intact. IMPRESSION: No acute lung findings.] [ ] Reviewed, dictated and finalized at location [facility]
[2025-05-31 19:11] VITALS: BP 168/132; PULSE 120; RESP 18; TEMP 36.7; O2SAT 99
[2025-05-31 19:15] VITALS: O2SAT 97
--- NOTE | 2025-05-31 19:30 | PC.NURSE ---
covid culture given to lab
--- NOTE | 2025-05-31 19:35 | ED_ITS ---
HPI - URI/Sore Throat General Chief Complaint: Upper Respiratory Infection Stated Complaint: body aches Time Seen by Provider: 05/31/25 19:22 Source: patient Mode of arrival: ambulatory History of Present Illness HPI Narrative: 35 YEARS OLD WHITE MALE CAME TO THE ED BY PRIVATE CAR COMPLAINING OF BODY ACHES, SHAKING, PRODUCTIVE COUGH FOR THE LAST 4 WEEKS. HE DENIES ANY FEVER OR CHILLS OR NAUSEA OR VOMITING OR CHEST PAIN OR SHORTNESS OF BREATH. PATIENT IS TELLING ME THAT HE HAD HISTORY OF LEUKEMIA LIVER CANCER AND KIDNEY CANCER LAST TIME WAS MANAGE OVER 1 AND HAVE YEAR AGO. PATIENT DOES SMOKE CIGARETTES AND MARIJUANA. DENIES ALCOHOL INTAKE. Related Data Allergies Allergy/AdvReac Type Severity Reaction Status Date / Time aspirin Allergy Unknown Other Verified 05/31/25 20:08 celecoxib Allergy Unknown Other Verified 05/31/25 20:08 citalopram Allergy Unknown Other Verified 05/31/25 20:08 tramadol Allergy Unknown Other Verified 05/31/25 20:08 haloperidol (From Haldol) AdvReac Other Verified 05/31/25 20:08 [facility], [facility] Past Medical History Medical History Hx pulmonary embolism Tobacco abuse History of kidney stones Ankle injury Surgical History Surgical History History of ankle surgery Family History Family History Father Accident Social History Social History Social History: The patient lives with his and she is the durable power retirement specialist for healthcare. He has 3 biological children and 2 step children. The patient continues to smoke at least 10 cigarettes a day. He denies any alcohol marijuana or illicit drugs. Smoking packs per day: 0.5 Smoking cigarettes per day: 10.0 Years smoked: 20 Smoking pack-years: 10.00 Tobacco type: cigarettes Additional smoking assessment comments: down from 2 and half packs per day Alcohol intake: current Drinks per week: 0 Alcohol use details: rare Substance use: current Substance use type: marijuana Other substance usage details: not much Last use: 06/22/2022 Lack of Transportation: No Lack of Food: Never True Current Housing: I Have Housing Concerned About Future Housing: No Difficulty Paying Gas/Electric Bills: No Difficulty Paying for Meds: No Currently Unemployed: No Education: Decline to Answer Difficulty w/ Childcare or Family Care: No Spiritual care concerns: No Course Vital Signs Vital signs: Vital Signs Temperature 36.7 C 05/31/25 19:11 Pulse Rate 120 H 05/31/25 19:11 Respiratory Rate 18 05/31/25 19:11 Blood Pressure 168/132 H 05/31/25 19:11 Pulse Oximetry 99 05/31/25 19:11 Oxygen Delivery Room Air 05/31/25 19:11 Temperature 36.7 C 05/31/25 19:11 Pulse Rate 120 H 05/31/25 19:11 Respiratory Rate 18 05/31/25 19:11 Blood Pressure 168/132 H 05/31/25 19:11 Pulse Oximetry 97 05/31/25 19:15 Oxygen Delivery Room Air 05/31/25 19:15 MDM - URI/Sore Throat MDM Narrative Medical decision making narrative: PATIENT START UPPER RESPIRATORY INFECTION LIKELY VIRAL, FOR THE LAST 4 WEEKS, SECONDARY BACTERIAL INFECTION IS MY CONCERN. CHEST X-RAY SHOWED NO ACUTE ABNORMALITY PATIENT TESTED NEGATIVE FOR COVID FLU RSV PATIENT IS A SMOKER DIAGNOSIS ACUTE BRONCHITIS DISCHARGED ON DOXYCYCLINE, PREDNISONE, ALBUTEROL AND BENZONATATE. THE PT WAS DISCHARGED TO HOME.THE PT,S CONDITION UPON DISCHARGE WAS FAIR,EDUCATION WAS PROVIDED TO THE PT IN REFERENCE TO THE FINAL IMPRESSION,DISCHARGE STUDY RESULTS,TREATMENT,PROGNOSIS AND NEED FOR FOLLOW UP . Differential Diagnosis Differential diagnosis: Likely other ( ABOVE) Medical Records Attestation: I reviewed the patient's medical records. Lab Data Attestation: I reviewed the patient's lab results. 05/31/25 19:34 05/31/25 19:34 Labs: Lab Results 05/31/25 05/31/25 Range/Units 19:28 19:34 WBC 10.0 (4.8-10.8) K/mm3 RBC 4.77 (4.70-6.10) M/mm3 Hgb 14.3 (14.0-18.0) g/dL Hct 41.5 (40.0-54.0) % MCV 87.0 (78.0-102.0) fL MCH 30.0 (27.0-31.0) pg MCHC 34.5 (32-36) g/dL RDW 11.9 (11.6-14.4) % Plt Count 246 (150-420) K/mm3 MPV 9.6 (8.7-11.0) fl Sodium 140 (137-145) mmol/L Potassium 3.9 (3.4-5.0) mmol/L Chloride 104 (98-107) mmol/L Carbon Dioxide 27 (22-30) mmol/L Anion Gap 9 (4-12) mmol/L BUN 11 (9-20) mg/dL Creatinine 1.00 (0.7-1.3) mg/dL Estim Creat Clear Calc 89 ml/min Estimated GFR > 60 (59 - ) Glucose 89 (65-110) mg/dL Calculated Osmolality 288 (285-295) mOsm/kg Calcium 9.3 (8.4-10.2) mg/dL Total Bilirubin 1.2 (0.2-1.3) mg/dL AST 27 (17-59) U/L ALT 24 (6-50) U/L Alkaline Phosphatase 96 (38-126) U/L Total Protein 7.2 (6.3-8.2) g/dL Albumin 4.3 (3.5-5.1) g/dL Influenza A (RT-PCR) Pending Influenza B (RT-PCR) Pending SARS-CoV-2 RNA (RT-PCR) Pending Imaging Data Radiologist's impression: Impressions Chest X-Ray 05/31/25 19:51 IMPRESSION: No acute lung findings.] [ ] Critical Care Time Critical Care Time Critical Care Time: No Discharge Plan Discharge Clinical Impression: Bronchitis Patient Disposition: Home Condition: Stable Instructions: Acute Bronchitis (ED) Additional Instructions: RETURN IF SYMPTOMS ARE WORSENING , CALL YOUR FAMILY PHYSICIAN FOR APPOINTMENT, TAKE TYLENOL, IBUPROFEN NEEDED FOR ACHES AND PAIN, CONTINUE HOME MEDICATIONS. GET [id number] AFRIN NASAL SPRAY, 3 TIMES A DAY MAXIMUM 3 DAYS Patient Language: Serbian Prescriptions: New doxycycline hyclate 100 mg capsule 100 mg PO BID Qty: 20 0RF benzonatate 200 mg capsule 200 mg PO TID Qty: 30 0RF prednisone 20 mg tablet 40 mg PO DAILY 5 Days Qty: 10 0RF albuterol sulfate [Ventolin HFA] 90 mcg/actuation HFA aerosol inhaler 2 puff inhalation QID PRN (Reason: shortness of breath or wheezing) Qty: 8.5 0RF Follow-up/Referrals: Thompson Ramirez MD [Primary Care Provider, Internal Medicine] Stand Alone Forms: Work/School Release IP
[2025-05-31 19:38] LABS: Hematocrit 41.5 % (40.0-54.0); Hemoglobin 14.3 g/dL (14.0-18.0); Mean Corpuscular HGB Conc 34.5 g/dL (32-36); Mean Corpuscular Hemoglobin 30.0 pg (27.0-31.0); Mean Corpuscular Volume 87.0 fL (78.0-102.0); Platelet Count Result 246 K/mm3 (150-420); Red Blood Count 4.77 M/mm3 (4.70-6.10); White Blood Count 10.0 K/mm3 (4.8-10.8)
[2025-05-31 19:49] LABS: Alanine Aminotransferase 24 U/L (6-50); Albumin Level 4.3 g/dL (3.5-5.1); Alkaline Phosphatase 96 U/L (38-126); Anion Gap 9 mmol/L (4-12); Aspartate Amino Transferase 27 U/L (17-59); Bilirubin,Total 1.2 mg/dL (0.2-1.3); Blood Urea Nitrogen 11 mg/dL (9-20); Calcium 9.3 mg/dL (8.4-10.2); Carbon Dioxide 27 mmol/L (22-30); Chloride 104 mmol/L (98-107); Estimated CRCL calculation 89 ml/min; Estimated Glomerular Filt Rate > 60; Glucose 89 mg/dL (65-110); Osmolality Calculated 288 mOsm/kg (285-295); Potassium 3.9 mmol/L (3.4-5.0); Sodium 140 mmol/L (137-145); Total Protein 7.2 g/dL (6.3-8.2)
[2025-05-31] MEDS: ACETAMINOPHEN 325 MG TABLET 650 MG PO (20:04)
[2025-05-31] MEDS: IBUPROFEN 400 MG TABLET 800 MG PO (20:11)
[2025-05-31 20:14] LABS: Influenza A QL RT-PCR Negative (Negative); Influenza B QL RT-PCR Negative (Negative); SARS-CoV-2 RNA PCR Negative (Negative)
[2025-05-31] MEDS: DOXYCYCLINE HYCLATE 100 MG TABLET PO (20:22)
[2025-05-31] MEDS: BENZONATATE 100 MG CAPSULE 200 MG PO (20:23)
[2025-05-31 20:34] VITALS: BP 138/90; PULSE 100; RESP 20; TEMP 36.6; O2SAT 99
== END 2025-05-31 20:34 | disposition home or self-care (01) ==
PROVIDERS: Emergency Provider Emergency Medicine; PCP Internal Medicine
DX: J40 Bronchitis, not specified as acute or chronic (principal); F17.210 Nicotine dependence, cigarettes, uncomplicated; Z20.822 Contact with and (suspected) exposure to COVID-19
CPT/HCPCS: 36415; 71046; 80053; 85027; 87636; 99283; A9270; J7512